=== PATIENT | male | born 1940 | race Caucasian/White ===

== ENCOUNTER → 2016-09-05 | Outpatient (REF) | payer MEDICARE, OTHER ==
[~2016-09-05] MED LIST: AMBI10TA PO; ASPI325T PO; CLOB0.0526 TOP; COLA750C2 PO; CORE3.12 PO; DITR1TAB PO; FLOM5CAP PO; GLUC500T PO; LANTINJ4 SC; LIVA2TAB PO; NITR0.4D6 SL; PROBCAP4 PO; PROTPAK PO; VIAG100T PO; VICO7.5T11 PO; VITA-113 PO; VITA20002 PO; VITA200038 PO; VITA400C97 PO; VITA500C24 PO; [UNRECOGNIZED DRUG - REMARK]
[2016-09-05 19:07] LABS: ALBUMIN 3.3 GM/DL (3.2-5.2); ALBUMIN/GLOBULIN RATIO 0.92 (1.00-1.93); BILIRUBIN,TOTAL 1.3 MG/DL (0.2-1.0); CALCIUM LEVEL 8.3 MG/DL (8.8-10.2); CREATININE FOR GFR 1.33 MG/DL (0.70-1.30); GLOMERULAR FILTRATION RATE 55.8 (>42); POTASSIUM SERUM 4.3 MEQ/L (3.5-5.1); TOTAL PROTEIN 6.9 GM/DL (6.4-8.2)
[2016-09-05 19:28] LABS: MEAN CORPUSCULAR HGB CONC 33.6 g/dl (32.0-36.5); MEAN CORPUSCULAR VOLUME 92.4 fl (80.0-96.0); RED CELL DISTRIBUTION WIDTH 13.2 % (11.5-14.5); WHITE BLOOD COUNT 4.5 K/mm3 (4.0-10.0)
== END ==
LOC: M SFHCADAM 15:38
PROVIDERS: ATTEND Family Medicine
DX: K51.90 Ulcerative colitis, unspecified, without complications (principal); E11.65 Type 2 diabetes mellitus with hyperglycemia; E78.4 Other hyperlipidemia; Z12.5 Encounter for screening for malignant neoplasm of prostate
CPT/HCPCS: 80053; 80061; 83036; 85027; G0103; G0463

== ENCOUNTER → 2017-06-06 | Outpatient (REF) | payer MEDICARE, OTHER ==
[2017-06-06 13:57] LABS: NT-PRO BNP 2120 PG/ML (<450)
== END ==
LOC: M LAB REF 13:03
DX: R05 Cough (principal); R60.9 Edema, unspecified; R06.02 Shortness of breath
CPT/HCPCS: 83880

== ENCOUNTER 2017-08-07 12:38 | Inpatient (IN) | payer MEDICARE, OTHER ==
[2017-08-07 14:30] LABS: INR 1.58; PROTHROMBIN TIME 19.3 SECONDS (12.4-14.5)
[2017-08-07 14:31] LABS: PARTIAL THROMBOPLASTIN TIME 37.7 SECONDS (26.8-37.9)
[2017-08-07 14:34] LABS: BASO % 0.4 % (0.0-1.0); EOS # 0.3 10^3/uL (0.0-0.50); HEMATOCRIT 35.1 % (42.0-52.0); HEMOGLOBIN 12.4 g/dl (13.5-17.5); IMMATURE GRANULOCYTE % 0.2 % (0-3.0); LYMPH # 1.3 10^3/uL (1.5-4.5); LYMPH % 27.7 % (24.0-44.0); MEAN CORPUSCULAR HEMOGLOBIN 31.4 pg (27.0-33.0); MEAN CORPUSCULAR HGB CONC 35.3 g/dl (32.0-36.5); MEAN CORPUSCULAR VOLUME 88.9 fl (80.0-96.0); MONO # 0.4 10^3/uL (0.0-0.8); NEUTROPHILS # 2.5 10^3/uL (1.8-7.7); NEUTROPHILS % 55.7 % (36.0-66.0); PLATELET COUNT, AUTOMATED 101 10^3/uL (150-450); RED BLOOD COUNT 3.95 10^6/uL (4.30-6.10); RED CELL DISTRIBUTION WIDTH 12.7 % (11.5-14.5); WHITE BLOOD COUNT 4.6 10^3/uL (4.0-10.0)
[2017-08-07 14:38] LABS: ANION GAP 6 MEQ/L (8-16); BLOOD UREA NITROGEN 25 MG/DL (7-18); CALCIUM LEVEL 8.8 MG/DL (8.8-10.2); CARBON DIOXIDE LEVEL 27 MEQ/L (21-32); CHLORIDE LEVEL 106 MEQ/L (98-107); CPK CREATINE PHOSPHOKINASE 194 U/L (39-308); CREATININE FOR GFR 1.73 MG/DL (0.70-1.30); GLOMERULAR FILTRATION RATE 41.1 (>42); GLUCOSE, FASTING 202 MG/DL (70-100); POTASSIUM SERUM 3.8 MEQ/L (3.5-5.1); SODIUM LEVEL 139 MEQ/L (136-145); TROPONIN I < 0.02 NG/ML (< 0.10)
[2017-08-07 14:40] LABS: CK-MB VALUE MASS 2.4 NG/ML (<3.6); MB/CK RELATIVE INDEX 1.23 (< OR =4); NT-PRO BNP 1454 PG/ML (<450)
[2017-08-07 15:45] LABS: D-DIMER QUANT < 270.0 ng/ml (<500)
[2017-08-07] MEDS: AZITHROMYCIN INJ 500 MG, VIAL MATE ADAPTER 1 EACH in D5W 250 ML IV (17:15)
[2017-08-07] MEDS: NS 1,000 ML IV ×2 (17:15→19:53)
[2017-08-07] MEDS ORDERED: IPRATROPIUM 0.5MG/ALBUTEROL 2.5MG INH SOL UD 3ML (DUONEB)(J7620) NEB (17:30)
[2017-08-07 18:00] LABS: OSMOLALITY SERUM 299 MOSM/KG (280-301)
[2017-08-07 18:09] LABS: C REACTIVE PROTEIN QUANTITATIV 4.61 MG/DL (0.00-0.30); FERRITIN 163 NG/ML (26-388); IRON (FE) 59 UG/DL (65-175); MAGNESIUM LEVEL 1.9 MG/DL (1.8-2.4); TOTAL IRON BINDING CAPACITY 256 UG/DL (250-450)
[2017-08-07 18:26] LABS: VITAMIN B12 LEVEL > 2000 PG/ML
[2017-08-07 18:27] LABS: FOLATE > 24.0 NG/ML
[2017-08-07 19:04] LABS: ERYTHROCYTE SEDIMENTATION RATE 37 mm/hr (0-20)
[2017-08-07 19:12] LABS: BEDSIDE GLUCOSE 145 MG/DL (83-110)
[2017-08-07] MEDS ORDERED: ONDANSETRON 4MG/2ML VIAL (J2405) IV (19:30)
[2017-08-07] MEDS ORDERED: BISACODYL 5 MG TAB PO (19:30)
[2017-08-07] MEDS: cefTRIAXone SOD 1 GM in D5W MINI-BAG PLUS 50 ML IV (19:53)
[2017-08-07 20:07] LABS: OSMOLALITY URINE 605 MOSM/KG (500-800)
[2017-08-07 20:11] LABS: APPEARANCE, URINE CLEAR (CLEAR); BACTERIA, URINE AUTO NEGATIVE (NEGATIVE); BILIRUBIN, URINE AUTO NEGATIVE (NEGATIVE); BLOOD, URINE BLOOD NEGATIVE (NEGATIVE); COLOR, URINE YELLOW (YELLOW); GLUCOSE, URINE (UA) AUTO NEGATIVE (NEGATIVE); KETONE, URINE AUTO NEGATIVE (NEGATIVE); LEUKOCYTE ESTERASE, URINE AUTO NEGATIVE (NEGATIVE); MUCUS, URINE SMALL (NEGATIVE); NITRITE, URINE AUTO NEGATIVE (NEGATIVE); PROTEIN, URINE AUTO NEGATIVE (NEGATIVE); RBC, URINE AUTO 0 /HPF (0-3); SPECIFIC GRAVITY URINE AUTO 1.018 (1.002-1.035); SQUAMOUS EPITHELIAL CELL UR AU 0 /HPF (0-6); UROBILINOGEN, URINE AUTO 0.2 mg/dL (0.0-2.0); WBC, URINE AUTO 0 /HPF (0-3)
[2017-08-07 20:40] LABS: SODIUM,RANDOM URINE 38 MEQ/L
[2017-08-07] MEDS: IPRATROPIUM 0.5MG/ALBUTEROL 2.5MG INH SOL UD 3ML (DUONEB)(J7620) NEB (20:52)
[2017-08-07] MEDS ORDERED: PITAVASTATIN 2 MG PO (21:00)
[2017-08-07] MEDS: GABAPENTIN 300 MG CAP PO (21:00)
[2017-08-07] MEDS: HumaLOG INSULIN (NovoLOG) PER UNIT SC (21:00)
[2017-08-07] MEDS: CARVedilol 6.25 MG TAB PO (21:00)
[2017-08-07] MEDS: ANEXSIA, NORCO 7.5MG/325MG TABLET(HYDROCODONE/APAP) PO (21:01)
[2017-08-07] MEDS: guaiFENesin ER 600 MG TAB PO (21:02)
[2017-08-07] MEDS: SENOKOT S TAB PO (21:02)
[2017-08-07] MEDS: CETIRIZINE (ZyrTEC) 10 MG TAB PO (21:02)
[2017-08-07 21:18] LABS: BEDSIDE GLUCOSE 164 MG/DL (83-110)
[2017-08-07] MEDS: LEVEMIR (INSULIN DETEMIR) 1 UNITS/0.01ML SC (21:21)
[2017-08-07] MEDS: OMEGA-3 1050MG CAPSULE PO (21:31)
[2017-08-07] MEDS ORDERED: GLUCOSE 4 GM CHEW TABLET PO (22:30)
[2017-08-07] MEDS ORDERED: DEXTROSE 50% 50 ML SYRINGE IV (22:30)
[2017-08-07] MEDS ORDERED: GLUCAGON FOR INJ 1 MG VIAL (J1610) SC (22:30)
[2017-08-07] MEDS: NITROGLYCERIN 2% OINT 1 GM *U/D* PKT TOP (23:20)
[2017-08-07] MEDS: amLODIPine 5 MG TAB PO (23:24)
[2017-08-07] MEDS: zolPIDEM TARTRATE 5 MG TAB PO (23:34)
[2017-08-08] MEDS: IPRATROPIUM 0.5MG/ALBUTEROL 2.5MG INH SOL UD 3ML (DUONEB)(J7620) NEB ×4 (01:42→20:35)
[2017-08-08 05:59] LABS: BASO % 0.6 % (0.0-1.0); EOS # 0.3 10^3/uL (0.0-0.50); EOS % 6.2 % (0.0-3.0); IMMATURE GRANULOCYTE % 0.6 % (0-3.0); LYMPH # 1.1 10^3/uL (1.5-4.5); LYMPH % 21.9 % (24.0-44.0); MEAN CORPUSCULAR HEMOGLOBIN 31.9 pg (27.0-33.0); MEAN CORPUSCULAR HGB CONC 35.5 g/dl (32.0-36.5); MEAN CORPUSCULAR VOLUME 89.9 fl (80.0-96.0); MONO # 0.4 10^3/uL (0.0-0.8); MONO % 8.5 % (0.0-5.0); NEUTROPHILS # 3.2 10^3/uL (1.8-7.7); NEUTROPHILS % 62.2 % (36.0-66.0); RED BLOOD COUNT 3.45 10^6/uL (4.30-6.10); RED CELL DISTRIBUTION WIDTH 12.7 % (11.5-14.5); WHITE BLOOD COUNT 5.2 10^3/uL (4.0-10.0)
[2017-08-08] MEDS: NITROGLYCERIN 2% OINT 1 GM *U/D* PKT TOP ×3 (06:00→22:00)
[2017-08-08 06:14] LABS: PROTHROMBIN TIME 18.5 SECONDS (12.4-14.5)
[2017-08-08 06:19] LABS: ANION GAP 4 MEQ/L (8-16); BLOOD UREA NITROGEN 21 MG/DL (7-18); CALCIUM LEVEL 8.1 MG/DL (8.8-10.2); CARBON DIOXIDE LEVEL 29 MEQ/L (21-32); CHLORIDE LEVEL 110 MEQ/L (98-107); CREATININE FOR GFR 1.45 MG/DL (0.70-1.30); GLOMERULAR FILTRATION RATE 50.4 (>42); GLUCOSE, FASTING 60 MG/DL (70-100); POTASSIUM SERUM 3.8 MEQ/L (3.5-5.1); SODIUM LEVEL 143 MEQ/L (136-145)
[2017-08-08 06:38] LABS: IMMATURE PLATELET FRACTION % 1.2 % (0.0-10.9); PLATELET COUNT, AUTOMATED 81 10^3/uL (150-450); PLATELET F 81
[2017-08-08] MEDS: HumaLOG INSULIN (NovoLOG) PER UNIT SC ×4 (07:30→21:00)
[2017-08-08 07:41] LABS: BEDSIDE GLUCOSE 101 MG/DL (83-110)
[2017-08-08] MEDS: LACTOBACILLUS ACIDOPHILUS CAP (BACID) PO (09:36)
[2017-08-08] MEDS: oxyBUTYnin *DITROPAN XL* 5 MG TABCR PO (09:37)
[2017-08-08] MEDS: PANTOPRAZOLE 40MG TAB (PROTONIX) PO (09:37)
[2017-08-08] MEDS: OMEGA-3 1050MG CAPSULE PO ×2 (09:37→21:20)
[2017-08-08] MEDS: FINASTERIDE 5 MG TAB PO (09:37)
[2017-08-08] MEDS: TAMSULOSIN 0.4 MG CAP PO (09:37)
[2017-08-08] MEDS: FOLIC ACID 1 MG TAB PO (09:37)
[2017-08-08] MEDS: CARVedilol 6.25 MG TAB PO ×2 (09:37→21:20)
[2017-08-08] MEDS: guaiFENesin ER 600 MG TAB PO ×2 (09:37→21:19)
[2017-08-08] MEDS: SENOKOT S TAB PO ×2 (09:37→21:19)
[2017-08-08] MEDS: OCUVITE 1 TAB PO (09:38)
[2017-08-08] MEDS: FERROUS SULFATE 325MG TAB PO (09:39)
[2017-08-08] MEDS: ANEXSIA, NORCO 7.5MG/325MG TABLET(HYDROCODONE/APAP) PO ×2 (09:39→15:49)
[2017-08-08] MEDS: NS 1,000 ML IV (09:39)
[2017-08-08 14:15] LABS: ESTIMATED AVERAGE GLUCOSE 186 MG/DL (60-110); HEMOGLOBIN A1c 8.1 %
[2017-08-08] MEDS ORDERED: SLF 3 ML SYR IV (16:15)
[2017-08-08 16:40] LABS: BEDSIDE GLUCOSE 193 MG/DL (83-110)
[2017-08-08 18:45] LABS: BEDSIDE GLUCOSE 197 MG/DL (83-110)
[2017-08-08 20:29] LABS: BEDSIDE GLUCOSE 181 MG/DL (83-110)
[2017-08-08] MEDS: GABAPENTIN 300 MG CAP PO (21:20)
[2017-08-08] MEDS: CETIRIZINE (ZyrTEC) 10 MG TAB PO (21:20)
[2017-08-08] MEDS: zolPIDEM TARTRATE 5 MG TAB PO (21:20)
[2017-08-08] MEDS: SLF 3 ML SYR IV (21:21)
[2017-08-08] MEDS: LEVEMIR (INSULIN DETEMIR) 1 UNITS/0.01ML SC (21:22)
[2017-08-09] MEDS: IPRATROPIUM 0.5MG/ALBUTEROL 2.5MG INH SOL UD 3ML (DUONEB)(J7620) NEB ×4 (01:39→20:00)
[2017-08-09] MEDS: ANEXSIA, NORCO 7.5MG/325MG TABLET(HYDROCODONE/APAP) PO ×3 (03:04→18:24)
[2017-08-09 05:27] LABS: BASO % 0.7 % (0.0-1.0); EOS # 0.3 10^3/uL (0.0-0.50); EOS % 7.3 % (0.0-3.0); HEMATOCRIT 31.8 % (42.0-52.0); IMMATURE GRANULOCYTE % 0.4 % (0-3.0); LYMPH # 1.1 10^3/uL (1.5-4.5); LYMPH % 23.8 % (24.0-44.0); MEAN CORPUSCULAR HGB CONC 34.6 g/dl (32.0-36.5); MEAN CORPUSCULAR VOLUME 89.6 fl (80.0-96.0); MONO # 0.3 10^3/uL (0.0-0.8); MONO % 7.3 % (0.0-5.0); NEUTROPHILS # 2.7 10^3/uL (1.8-7.7); NEUTROPHILS % 60.5 % (36.0-66.0); RED BLOOD COUNT 3.55 10^6/uL (4.30-6.10); RED CELL DISTRIBUTION WIDTH 12.6 % (11.5-14.5); WHITE BLOOD COUNT 4.5 10^3/uL (4.0-10.0)
[2017-08-09 05:28] LABS: PLATELET COUNT, AUTOMATED 85 10^3/uL (150-450)
[2017-08-09 05:33] LABS: INR 1.15; PROTHROMBIN TIME 14.9 SECONDS (12.4-14.5)
[2017-08-09 05:44] LABS: ANION GAP 5 MEQ/L (8-16); BLOOD UREA NITROGEN 17 MG/DL (7-18); CALCIUM LEVEL 8.4 MG/DL (8.8-10.2); CARBON DIOXIDE LEVEL 27 MEQ/L (21-32); CHLORIDE LEVEL 108 MEQ/L (98-107); CHOLESTEROL LEVEL 118 MG/DL (<200); CHOLESTEROL RISK RATIO 4.214 (<5); GLOMERULAR FILTRATION RATE 57.1 (>42); GLUCOSE, FASTING 148 MG/DL (70-100); HDL CHOLESTEROL 28 MG/DL (>40); NON-HDL-C 90 MG/DL; POTASSIUM SERUM 4.4 MEQ/L (3.5-5.1); SODIUM LEVEL 140 MEQ/L (136-145); TRIGLYCERIDES LEVEL 115 MG/DL (<150)
[2017-08-09] MEDS: NITROGLYCERIN 2% OINT 1 GM *U/D* PKT TOP ×3 (06:00→22:00)
[2017-08-09] MEDS: SLF 3 ML SYR IV ×3 (06:00→21:01)
[2017-08-09 08:22] LABS: BEDSIDE GLUCOSE 115 MG/DL (83-110)
[2017-08-09] MEDS: HumaLOG INSULIN (NovoLOG) PER UNIT SC ×4 (08:30→21:00)
[2017-08-09] MEDS: PANTOPRAZOLE 40MG TAB (PROTONIX) PO (08:31)
[2017-08-09] MEDS: TAMSULOSIN 0.4 MG CAP PO (08:31)
[2017-08-09] MEDS: oxyBUTYnin *DITROPAN XL* 5 MG TABCR PO (08:31)
[2017-08-09] MEDS: FERROUS SULFATE 325MG TAB PO (08:31)
[2017-08-09] MEDS: OMEGA-3 1050MG CAPSULE PO ×2 (08:31→21:00)
[2017-08-09] MEDS: CARVedilol 6.25 MG TAB PO ×2 (08:34→21:00)
[2017-08-09] MEDS: guaiFENesin ER 600 MG TAB PO ×2 (08:35→21:00)
[2017-08-09] MEDS: FOLIC ACID 1 MG TAB PO (08:36)
[2017-08-09] MEDS: OCUVITE 1 TAB PO (08:36)
[2017-08-09] MEDS: FINASTERIDE 5 MG TAB PO (08:36)
[2017-08-09] MEDS: LACTOBACILLUS ACIDOPHILUS CAP (BACID) PO (08:36)
[2017-08-09] MEDS: cefTRIAXone SOD 1 GM in D5W MINI-BAG PLUS 50 ML IV ×2 (11:00→14:53)
[2017-08-09 12:08] LABS: BEDSIDE GLUCOSE 136 MG/DL (83-110)
[2017-08-09] MEDS: SENOKOT S TAB PO ×2 (12:36→21:00)
[2017-08-09 16:52] LABS: BEDSIDE GLUCOSE 79 MG/DL (83-110)
[2017-08-09 20:25] LABS: BEDSIDE GLUCOSE 171 MG/DL (83-110)
[2017-08-09] MEDS: CETIRIZINE (ZyrTEC) 10 MG TAB PO (20:59)
[2017-08-09] MEDS: LEVEMIR (INSULIN DETEMIR) 1 UNITS/0.01ML SC (20:59)
[2017-08-09] MEDS: GABAPENTIN 300 MG CAP PO (21:00)
[2017-08-09] MEDS: zolPIDEM TARTRATE 5 MG TAB PO (23:12)
[2017-08-10] MEDS: ANEXSIA, NORCO 7.5MG/325MG TABLET(HYDROCODONE/APAP) PO (04:10)
[2017-08-10] MEDS: IPRATROPIUM 0.5MG/ALBUTEROL 2.5MG INH SOL UD 3ML (DUONEB)(J7620) NEB ×2 (05:08→08:23)
[2017-08-10] MEDS: NITROGLYCERIN 2% OINT 1 GM *U/D* PKT TOP (05:56)
[2017-08-10] MEDS: SLF 3 ML SYR IV ×2 (05:57→12:14)
[2017-08-10] MEDS: HumaLOG INSULIN (NovoLOG) PER UNIT SC ×2 (07:27→12:00)
[2017-08-10] MEDS ORDERED: DEXTROMETHORPHAN 60MG/10ML SUSP 90ML BTL(DELSYM) PO (08:30)
[2017-08-10 08:31] LABS: BASO % 0.6 % (0.0-1.0); EOS # 0.4 10^3/uL (0.0-0.50); EOS % 8.3 % (0.0-3.0); HEMATOCRIT 32.4 % (42.0-52.0); HEMOGLOBIN 11.1 g/dl (13.5-17.5); IMMATURE GRANULOCYTE % 0.6 % (0-3.0); LYMPH # 1.3 10^3/uL (1.5-4.5); LYMPH % 25.9 % (24.0-44.0); MEAN CORPUSCULAR HEMOGLOBIN 31.1 pg (27.0-33.0); MEAN CORPUSCULAR HGB CONC 34.3 g/dl (32.0-36.5); MEAN CORPUSCULAR VOLUME 90.8 fl (80.0-96.0); MONO # 0.4 10^3/uL (0.0-0.8); MONO % 7.5 % (0.0-5.0); NEUTROPHILS # 2.8 10^3/uL (1.8-7.7); NEUTROPHILS % 57.1 % (36.0-66.0); PLATELET COUNT, AUTOMATED 111 10^3/uL (150-450); RED BLOOD COUNT 3.57 10^6/uL (4.30-6.10); RED CELL DISTRIBUTION WIDTH 12.5 % (11.5-14.5); WHITE BLOOD COUNT 4.8 10^3/uL (4.0-10.0)
[2017-08-10 08:40] LABS: INR 1.17; PROTHROMBIN TIME 15.1 SECONDS (12.4-14.5)
[2017-08-10] MEDS: guaiFENesin ER 600 MG TAB PO (08:44)
[2017-08-10] MEDS: SENOKOT S TAB PO (08:44)
[2017-08-10] MEDS: PANTOPRAZOLE 40MG TAB (PROTONIX) PO (08:44)
[2017-08-10] MEDS: FINASTERIDE 5 MG TAB PO (08:44)
[2017-08-10] MEDS: FOLIC ACID 1 MG TAB PO (08:44)
[2017-08-10] MEDS: OCUVITE 1 TAB PO (08:44)
[2017-08-10] MEDS: OMEGA-3 1050MG CAPSULE PO (08:44)
[2017-08-10] MEDS: FERROUS SULFATE 325MG TAB PO (08:44)
[2017-08-10] MEDS: LACTOBACILLUS ACIDOPHILUS CAP (BACID) PO (08:45)
[2017-08-10] MEDS: CARVedilol 6.25 MG TAB PO (08:45)
[2017-08-10] MEDS: oxyBUTYnin *DITROPAN XL* 5 MG TABCR PO (08:48)
[2017-08-10] MEDS: TAMSULOSIN 0.4 MG CAP PO (08:48)
[2017-08-10 08:56] LABS: ANION GAP 4 MEQ/L (8-16); BLOOD UREA NITROGEN 15 MG/DL (7-18); CALCIUM LEVEL 8.3 MG/DL (8.8-10.2); CARBON DIOXIDE LEVEL 30 MEQ/L (21-32); CHLORIDE LEVEL 106 MEQ/L (98-107); CREATININE FOR GFR 1.34 MG/DL (0.70-1.30); GLOMERULAR FILTRATION RATE 55.2 (>42); GLUCOSE, FASTING 92 MG/DL (70-100); POTASSIUM SERUM 4.4 MEQ/L (3.5-5.1); SODIUM LEVEL 140 MEQ/L (136-145)
[2017-08-10] MEDS: cefTRIAXone SOD 2 GM in D5W MINI-BAG PLUS 50 ML IV (11:22)
[2017-08-11 10:34] LABS: BEDSIDE GLUCOSE 68 MG/DL (83-110)
== END 2017-08-10 13:10 | disposition home or self-care (01) | DRG 178 ==
LOC: M PCU 20:20 → M MSPAV 08-09 13:01 → M ED 12:38 → M ED INP 20:20 → M PCU 08-09 13:04 → M MSPAV 08-09 13:52
DX: J15.5 Pneumonia due to Escherichia coli (principal); I50.22 Chronic systolic (congestive) heart failure; N17.9 Acute kidney failure, unspecified; R04.2 Hemoptysis; E11.42 Type 2 diabetes mellitus with diabetic polyneuropathy; I48.2 Chronic atrial fibrillation; N40.0 Benign prostatic hyperplasia without lower urinary tract symptoms; K21.9 Gastro-esophageal reflux disease without esophagitis; I25.10 Atherosclerotic heart disease of native coronary artery without angina pectoris; K76.0 Fatty (change of) liver, not elsewhere classified; D50.9 Iron deficiency anemia, unspecified; I16.0 Hypertensive urgency; I27.20 Pulmonary hypertension, unspecified; E66.9 Obesity, unspecified; I11.0 Hypertensive heart disease with heart failure; E55.9 Vitamin D deficiency, unspecified; E29.1 Testicular hypofunction; Z95.1 Presence of aortocoronary bypass graft; Z79.82 Long term (current) use of aspirin; Z79.4 Long term (current) use of insulin; Z79.01 Long term (current) use of anticoagulants; Z79.899 Other long term (current) drug therapy; Z88.5 Allergy status to narcotic agent; Z88.8 Allergy status to other drugs, medicaments and biological substances; Z68.30 Body mass index [BMI] 30.0-30.9, adult

== ENCOUNTER → 2017-09-26 | Outpatient (REF) | payer MEDICARE, OTHER ==
[2017-09-26 13:05] LABS: ANION GAP 7 MEQ/L (8-16); BLOOD UREA NITROGEN 24 MG/DL (7-18); CALCIUM LEVEL 8.9 MG/DL (8.8-10.2); CARBON DIOXIDE LEVEL 30 MEQ/L (21-32); CHLORIDE LEVEL 106 MEQ/L (98-107); CREATININE FOR GFR 1.89 MG/DL (0.70-1.30); GLOMERULAR FILTRATION RATE 37.1 (>42); GLUCOSE, FASTING 115 MG/DL (70-100); POTASSIUM SERUM 4.9 MEQ/L (3.5-5.1); RHEUMATOID FACTOR QUANT < 10.0 IU/ML (<15.0); SODIUM LEVEL 143 MEQ/L (136-145)
[2017-09-26 13:10] LABS: ALBUMIN 3.5 GM/DL (3.2-5.2); ALBUMIN/GLOBULIN RATIO 0.92 (1.00-1.93); ALKALINE PHOSPHATASE 75 U/L (45-117); ALT/SGPT 33 U/L (12-78); ANION GAP 8 MEQ/L (8-16); AST/SGOT 21 U/L (7-37); BILIRUBIN,TOTAL 0.8 MG/DL (0.2-1.0); BLOOD UREA NITROGEN 25 MG/DL (7-18); CALCIUM LEVEL 8.9 MG/DL (8.8-10.2); CARBON DIOXIDE LEVEL 30 MEQ/L (21-32); CHLORIDE LEVEL 106 MEQ/L (98-107); CREATININE FOR GFR 1.89 MG/DL (0.70-1.30); GLOMERULAR FILTRATION RATE 37.1 (>42); GLUCOSE, FASTING 114 MG/DL (70-100); POTASSIUM SERUM 4.8 MEQ/L (3.5-5.1); SODIUM LEVEL 144 MEQ/L (136-145); TOTAL PROTEIN 7.3 GM/DL (6.4-8.2)
[2017-09-26 13:15] LABS: ERYTHROCYTE SEDIMENTATION RATE 11 mm/hr (0-20)
[2017-09-28 00:12] LABS: ANA (HEP2) Negative (.)
== END ==
LOC: M SFHCADAM 08:55
DX: E11.65 Type 2 diabetes mellitus with hyperglycemia (principal); M15.9 Polyosteoarthritis, unspecified
CPT/HCPCS: 80053

== ENCOUNTER → 2017-10-02 | Outpatient (CLI) | payer MEDICARE, OTHER | LOC: M RAD 10:10 | DX: D16.9 Benign neoplasm of bone and articular cartilage, unspecified (principal) | CPT/HCPCS: 72195 ==

== ENCOUNTER → 2017-10-04 | Outpatient (CLI) | payer MEDICARE, OTHER | LOC: M WUC 18:42 | DX: J06.9 Acute upper respiratory infection, unspecified (principal); R05 Cough | CPT/HCPCS: 71046 ==

== ENCOUNTER → 2017-11-27 | Outpatient (REF) | payer MEDICARE, OTHER | LOC: M SFHCADAM 16:58 | DX: K51.90 Ulcerative colitis, unspecified, without complications (principal); E11.40 Type 2 diabetes mellitus with diabetic neuropathy, unspecified; E78.4 Other hyperlipidemia; Z12.5 Encounter for screening for malignant neoplasm of prostate; Z53.8 Procedure and treatment not carried out for other reasons ==

== ENCOUNTER → 2018-01-16 | Outpatient (CLI) | payer MEDICARE, OTHER | LOC: M WUC 14:45 | DX: R05 Cough (principal) | CPT/HCPCS: 71046 ==

== ENCOUNTER → 2018-01-23 | Outpatient (REF) | payer MEDICARE, OTHER | LOC: M SFHCADAM 09:50 | DX: J47.1 Bronchiectasis with (acute) exacerbation (principal) | CPT/HCPCS: 87205 ==

== ENCOUNTER → 2018-08-16 | Outpatient (REF) | payer MEDICARE, OTHER ==
[~2018-08-16] MED LIST changes: +ASPI-1 PO; -ASPI325T PO; +ASPI81TA26 PO; +CARV6.25 PO; +CETI10TA PO; +COUM1TAB19 PO; +COUM2TAB22 PO; +FINA5TAB2 PO; +FLOM0.4C39 PO; -FLOM5CAP PO; +FOLI1TAB11 PO; +GABA-843 PO; +IRON65TA PO; +KEFL500C17 PO; +LASI40TA9 PO; +LOVA1CAP17 PO; +MULT1TAB9 PO; +PANT40TA3 PO; -VITA-113 PO; +VITA-113 SL; +VITA500030 PO; +WARF4TAB52 PO
[2018-08-16 09:46] LABS: HEMATOCRIT 40.1 % (42.0-52.0); HEMOGLOBIN 13.7 g/dl (13.5-17.5); MEAN CORPUSCULAR HEMOGLOBIN 30.4 pg (27.0-33.0); MEAN CORPUSCULAR HGB CONC 34.2 g/dl (32.0-36.5); MEAN CORPUSCULAR VOLUME 89.1 fl (80.0-96.0); PLATELET COUNT, AUTOMATED 100 10^3/uL (150-450); WHITE BLOOD COUNT 6.9 10^3/uL (4.0-10.0)
[2018-08-16 10:10] LABS: ALBUMIN 3.9 GM/DL (3.2-5.2); BILIRUBIN,TOTAL 1.2 MG/DL (0.2-1.0); CALCIUM LEVEL 8.2 MG/DL (8.8-10.2); CHOLESTEROL RISK RATIO 2.704 (<5); CREATININE FOR GFR 1.9 MG/DL (0.70-1.30); FREE T4 1.27 NG/DL (0.76-1.46); GLOMERULAR FILTRATION RATE 36.8 (>42); THYROID STIMULATING HORMONE 2.98 uIU/ML (0.358-3.740); TOTAL PROTEIN 7.1 GM/DL (6.4-8.2)
== END ==
LOC: M SFHCADAM 09:33
PROVIDERS: ATTEND Internal Medicine Cardiovascular Disease
DX: I48.91 Unspecified atrial fibrillation (principal); R06.02 Shortness of breath; I10 Essential (primary) hypertension

== ENCOUNTER → 2018-08-16 | Outpatient (REF) | payer MEDICARE, OTHER ==
[2018-08-16 09:49] LABS: ALBUMIN 3.5 GM/DL (3.2-5.2); BILIRUBIN,TOTAL 1.2 MG/DL (0.2-1.0); CALCIUM LEVEL 8.3 MG/DL (8.8-10.2); CHOLESTEROL RISK RATIO 2.642 (<5); CREATININE FOR GFR 1.84 MG/DL (0.70-1.30); GLOMERULAR FILTRATION RATE 38.2 (>42); POTASSIUM SERUM 3.9 MEQ/L (3.5-5.1); TOTAL PROTEIN 7.3 GM/DL (6.4-8.2)
[2018-08-16 09:54] LABS: HEMATOCRIT 40.9 % (42.0-52.0); HEMOGLOBIN 14.1 g/dl (13.5-17.5); MEAN CORPUSCULAR HEMOGLOBIN 31.3 pg (27.0-33.0); MEAN CORPUSCULAR HGB CONC 34.5 g/dl (32.0-36.5); MEAN CORPUSCULAR VOLUME 90.7 fl (80.0-96.0); RED BLOOD COUNT 4.51 10^6/uL (4.30-6.10); WHITE BLOOD COUNT 6.8 10^3/uL (4.0-10.0)
[2018-08-16 09:57] LABS: PLATELET COUNT, AUTOMATED 94 10^3/uL (150-450)
[2018-08-16 13:51] LABS: HEMOGLOBIN A1c 7.9 %
[2018-08-16 21:18] LABS: MALB URINE SIEMENS 8.6 MG/L
== END ==
LOC: M SFHCADAM 08:04
PROVIDERS: ATTEND Family Medicine
DX: K51.90 Ulcerative colitis, unspecified, without complications (principal); E11.40 Type 2 diabetes mellitus with diabetic neuropathy, unspecified; E78.49 Other hyperlipidemia; Z12.5 Encounter for screening for malignant neoplasm of prostate; I48.91 Unspecified atrial fibrillation; R06.02 Shortness of breath; I10 Essential (primary) hypertension
CPT/HCPCS: 80053; 80061; 82043; 83036; 83880; 84439; 84443; 85027; 85049; 85055; G0103

== ENCOUNTER → 2019-01-20 | Outpatient (REF) | payer MEDICARE, OTHER ==
[~2019-01-20] MED LIST changes: -VICO7.5T11 PO; +VICO7.5T12 PO
[2019-01-20 13:04] LABS: CALCIUM LEVEL 9.7 MG/DL (8.8-10.2); CREATININE FOR GFR 2.1 MG/DL (0.70-1.30); GLOMERULAR FILTRATION RATE 32.8 (>42); POTASSIUM SERUM 4.6 MEQ/L (3.5-5.1)
[2019-01-20 14:24] LABS: HEMOGLOBIN A1c 6.3 %
== END ==
LOC: M SFHCADAM 10:37
PROVIDERS: ATTEND Family Medicine
DX: E11.40 Type 2 diabetes mellitus with diabetic neuropathy, unspecified (principal)

== ENCOUNTER → 2019-02-10 | Outpatient (CLI) | payer MEDICARE, OTHER ==
--- NOTE | 2019-02-10 16:13 | REP ---
Urinary tract sonogram: History: Hypertensive heart disease. Comparison: Comparison study August 07, 2017. Findings: Scanning at the level of the urinary bladder shows no abnormality. Renal cortical echogenicity pattern is normal bilaterally and contours are smooth. There is no evidence of hydronephrosis, cyst, mass, or calculus in either kidney. The right kidney measures 10.1 x 5.4 x 5.2 cm. Left renal dimensions are 10.4 x 6.3 x 5.6 cm. Impression: Unremarkable urinary tract sonography. There is no evidence of hydronephrosis. Electronically Signed by Ernesto Trammell MD 02/10/2019 04:04 P
== END ==
LOC: M RAD 15:00
PROVIDERS: ATTEND Family Medicine
DX: I11.9 Hypertensive heart disease without heart failure (principal)

== ENCOUNTER 2019-10-11 20:09 | Emergency (ER) | payer MEDICARE, OTHER ==
[~2019-10-11] VITALS: Ht 182.9 cm; Wt 97.7 kg
[2019-10-11] MEDS ORDERED: LIDOCAINE 2% 5ML JELLY UROJET TOP ONE (20:45)
[2019-10-11] MEDS ORDERED: MORPHINE 4 MG/ML 1ML VIAL/SYRINGE (J2270) IV ONE (21:15)
[2019-10-11] MEDS ORDERED: NS 500 ML IV ONE (21:15)
[2019-10-11 21:24] LABS: BASO # 0.1 10^3/uL (0.0-0.2); BASO % 0.9 % (0.0-1.0); EOS # 0.3 10^3/uL (0.0-0.5); EOS % 3.6 % (0.0-3.0); HEMATOCRIT 39.3 % (42.0-52.0); LYMPH # 1.2 10^3/uL (1.5-5.0); LYMPH % 17.7 % (24.0-44.0); MEAN CORPUSCULAR HEMOGLOBIN 30.4 pg (27.0-33.0); MEAN CORPUSCULAR HGB CONC 33.1 g/dl (32.0-36.5); MONO # 0.5 10^3/uL (0.0-0.8); MONO % 6.9 % (0.0-5.0); NEUTROPHILS # 4.8 10^3/uL (1.5-8.5); NEUTROPHILS % 70.2 % (36.0-66.0); RED BLOOD COUNT 4.27 10^6/uL (4.30-6.10); WHITE BLOOD COUNT 6.9 10^3/uL (4.0-10.0)
[2019-10-11 21:26] LABS: PLATELET COUNT, AUTOMATED 96 10^3/uL (150-450)
[2019-10-11] MEDS: GASTROGRAFIN SOLUTION 30ML PO SCH ×2 (21:31→22:00)
[2019-10-11 22:00] LABS: ALBUMIN 3.9 GM/DL (3.2-5.2); BILIRUBIN,DIRECT 0.2 MG/DL (0.0-0.2); BILIRUBIN,TOTAL 0.9 MG/DL (0.2-1.0); CALCIUM LEVEL 9.1 MG/DL (8.8-10.2); CREATININE FOR GFR 2.67 MG/DL (0.70-1.30); GLOMERULAR FILTRATION RATE 24.8 (>42); TOTAL PROTEIN 7.3 GM/DL (6.4-8.2)
--- NOTE | 2019-10-11 23:13 | REPVR ---
PROCEDURE INFORMATION: Exam: CT Abdomen And Pelvis Without Contrast Exam date and time: 10/11/2019 10:50 PM Age: 79 years old Clinical indication: Abdominal pain; Generalized; Additional info: Distension/pain TECHNIQUE: Imaging protocol: Computed tomography of the abdomen and pelvis without contrast. Radiation optimization: All CT scans at this facility use at least one of these dose optimization techniques: automated exposure control; mA and/or kV adjustment per patient size (includes targeted exams where dose is matched to clinical indication); or iterative reconstruction. Other contrast: Oral, Gastrographin, 10cc gastro to 290 water x 2; COMPARISON: MRI PELVIS WITHOUT CONTRAST 2017-10-02 11:00 FINDINGS: Limitations: Limited by patient's body habitus. Tubes, catheters and devices: A balloon bladder catheter is present. Lungs: Dependent subsegmental pulmonary atelectasis. Heart: Moderate cardiac enlargement. Mediastinal space: Mild gastro-esophageal thickening. Question distal esophagitis. Liver: Normal. No mass. Gallbladder and bile ducts: Cholelithiasis. Pancreas: Normal. No ductal dilation. Spleen: The spleen demonstrates punctate calcifications, consistent with remote granulomatous organism exposure. Adrenals: Normal. No mass. Kidneys and ureters: 5 mm right vesicoureteral junction obstructing calculus causes mild to moderate right renal collecting system dilatation/hydronephrosis. Punctate non-obstructing right renal calculus. Stomach and bowel: Ileocolic right lower quadrant bowel anastomosis. Distal colonic lipomatosis. Small bowel adhesed to the anterior abdominal wall. Gastric wall lipomatosis. Appendix: No evidence of appendicitis. Intraperitoneal space: Unremarkable. No free air. No significant fluid collection. Vasculature: Unremarkable. No abdominal aortic aneurysm. Lymph nodes: Unremarkable. No enlarged lymph nodes. Bladder: Unremarkable as visualized. Reproductive: 7 cm, enlarged prostate gland, correlate with PSA. Bones/joints: Pedunculated calcific lesion projecting laterally from the left iliac is unchanged measuring up to 5.9 cm. L4-L5 right paracentral to foraminal disc protrusion and osteophytes causes severe right subarticular and foraminal stenosis. Soft tissues: Bilateral small fat protruding inguinal hernias. Midline laparotomy scarring. Other findings: Mild bronchial wall thickening. IMPRESSION: 1. 5 mm right vesicoureteral junction obstructing calculus causes mild to moderate right renal collecting system dilatation/hydronephrosis. 2. Mild gastro-esophageal thickening. Question distal esophagitis. 3. Moderate cardiac enlargement. Cholelithiasis. 4. 7 cm, enlarged prostate gland, correlate with PSA. Electronically signed by: Jm Correa On 10/11/2019 23:12:51 PM
[2019-10-11] MEDS ORDERED: TAMSULOSIN 0.4 MG CAP PO ONE (23:15)
[2019-10-11] MEDS: NS 500 ML IV ONE ×2 (23:23→23:29)
[2019-10-11 23:49] VITALS: BP 147/84
== END 2019-10-12 00:04 | disposition home or self-care (01) ==
LOC: M ED 20:09
DX: N20.1 Calculus of ureter (principal); R10.9 Unspecified abdominal pain; I48.91 Unspecified atrial fibrillation; I10 Essential (primary) hypertension; E11.9 Type 2 diabetes mellitus without complications; I25.10 Atherosclerotic heart disease of native coronary artery without angina pectoris; N40.1 Benign prostatic hyperplasia with lower urinary tract symptoms; K21.9 Gastro-esophageal reflux disease without esophagitis; D69.6 Thrombocytopenia, unspecified; R16.1 Splenomegaly, not elsewhere classified; Z87.891 Personal history of nicotine dependence; Z88.8 Allergy status to other drugs, medicaments and biological substances; Z88.5 Allergy status to narcotic agent; Z79.899 Other long term (current) drug therapy; Z79.4 Long term (current) use of insulin; Z79.82 Long term (current) use of aspirin
CPT/HCPCS: 51702; 74176; 80048; 80076; 81001; 83605; 83690; 85025; 85049; 85055; 96361; 96374; 99284; J2270; Q9963

== ENCOUNTER 2019-10-16 14:11 | Inpatient (IN) | payer MEDICARE, OTHER ==
[~2019-10-16] VITALS: Ht 182.9 cm; Wt 96.5 kg
[2019-10-16 15:47] LABS: BASO % 0.7 % (0.0-1.0); EOS # 0.2 10^3/uL (0.0-0.5); EOS % 3.6 % (0.0-3.0); HEMOGLOBIN 11.2 g/dl (13.5-17.5); LYMPH % 17.2 % (24.0-44.0); MEAN CORPUSCULAR HEMOGLOBIN 31.1 pg (27.0-33.0); MEAN CORPUSCULAR HGB CONC 33.9 g/dl (32.0-36.5); MEAN CORPUSCULAR VOLUME 91.7 fl (80.0-96.0); MONO # 0.4 10^3/uL (0.0-0.8); MONO % 7.3 % (0.0-5.0); NEUTROPHILS # 4.1 10^3/uL (1.5-8.5); NEUTROPHILS % 70.7 % (36.0-66.0); WHITE BLOOD COUNT 5.9 10^3/uL (4.0-10.0)
[2019-10-16 15:51] LABS: PLATELET COUNT, AUTOMATED 88 10^3/uL (150-450)
[2019-10-16 16:17] LABS: ALBUMIN 3.4 GM/DL (3.2-5.2); BILIRUBIN,DIRECT 0.3 MG/DL (0.0-0.2); BILIRUBIN,TOTAL 1.2 MG/DL (0.2-1.0); TOTAL PROTEIN 6.4 GM/DL (6.4-8.2)
[2019-10-16 16:24] LABS: INR 1.28; PROTHROMBIN TIME 15.7 SECONDS (11.8-14.0)
[2019-10-16 16:25] LABS: PARTIAL THROMBOPLASTIN TIME 31.6 SECONDS (25.0-38.4)
[2019-10-16] MEDS ORDERED: FUROSEMIDE 100MG/10ML VIAL (J1940) IV ONE (17:15)
[2019-10-16] MEDS ORDERED: cefTRIAXone SOD 2 GM VIAL (J0696 PER 250MG) IV ONE (17:15)
[2019-10-16] MEDS ORDERED: cefTRIAXone SOD 2 GM in D5W MINI-BAG PLUS 50 ML IV ONE (17:30)
[2019-10-16] MEDS ORDERED: AZIT500T5 PO (18:07)
[2019-10-16] MEDS ORDERED: TRIA0.027 TOP (18:07)
[2019-10-16] MEDS ORDERED: ZOLP5TAB PO (18:07)
[2019-10-16] MEDS ORDERED: CVS5000S2 SL (18:07)
[2019-10-16] MEDS ORDERED: ZINC1TAB2 PO (18:07)
[2019-10-16] MEDS ORDERED: AMIO200T PO (18:07)
[2019-10-16] MEDS ORDERED: VITAD1000T PO (18:07)
[2019-10-16] MEDS ORDERED: SYMB16INH INH (18:07)
[2019-10-16] MEDS ORDERED: HYDR-4514 PO (18:07)
[2019-10-16] MEDS ORDERED: VITMTA PO (18:07)
[2019-10-16] MEDS ORDERED: METF-839 PO (18:07)
[2019-10-16] MEDS ORDERED: VENTAER INH (18:07)
[2019-10-16] MEDS ORDERED: IPRA6SP NARES (18:07)
[2019-10-16] MEDS ORDERED: PROT0.1O TOP (18:07)
[2019-10-16] MEDS ORDERED: ELIQ5TAB PO (18:07)
[2019-10-16] MEDS ORDERED: MAGN400T2 PO (18:07)
[2019-10-16] MEDS ORDERED: LANTINJ4 SC (18:07)
--- NOTE | 2019-10-16 18:17 | HPEPDOC ---
[facility] Medical History & Physical Date of Admission Oct 16, 2019 Date of Service: Oct 16, 2019 Attending Physician: ROBERTO MARRERO MD History and Physical PRIMARY CARE PROVIDER: Dr. Johnson ATTENDING: Roberto Marrero M.D. CHIEF COMPLAINT: Shortness of breath HISTORY OF PRESENT ILLNESS: This is a 71-year-old male with a past medical history of systolic heart failure EF of 35%, history of CAD status post CABG, insulin-dependent diabetes mellitus, atrial fibrillation status post ablation, BPH, who was recently seen in the hospital on was diagnosed with urinary retention with status post Rebolledo placement after which he had a CT of the abdomen and pelvis which noted a kidney stone. Patient had his Rebolledo removed and discharged with outpatient follow-up with urology. In the meantime, patient was told to drink a lot of fluids to help passed a kidney stone. Patient followed up with urology and has planned for cystoscopy and near future. As the patient has increased his fluid intake. He started to develop shortness of breath, lower extremity edema. Patient's notes he has orthopnea and normally sleeps on 2 pillows. He denies any chest pain or palpitations. He does have dyspnea on exertion. Also noticed increased lower extremity edema. Patient's currently resting comfortably in bed. Says he has to urinate frequently. Denies any dysuria, hematuria. No fevers or chills. PAST MEDICAL HISTORY: As per HPI PAST SURGICAL HISTORY: Bilateral cataract surgery, CABG in 2017, cardiac ablation, colonoscopy, prostate biopsy. He SOCIAL HISTORY: Denies tobacco, alcohol or illicit drug use. Lives with . FAMILY HISTORY: Father of heart disease 865 ALLERGIES: Please see below. REVIEW OF SYSTEMS: HEENT: Denies sore throat/headache CARDIOVASCULAR: Denies chest pain/palpitations RESPIRATORY: Denies shortness of breath/cough GASTROINTESTINAL: denies nausea/vomiting GENITOURINARY: Denies dysuria/urinary urgency. MUSCULOSKELETAL: Denies myalgias/arthralgias NEUROLOGICAL: Denies any focal weakness HOME MEDICATIONS: Please see below. PHYSICAL EXAMINATION: Vitals: (see below) General: No acute distress, laying comfortably in bed. HEENT: Moist mucous membranes. Neck: No JVD Cardiac: RRR Pulm: Coarse crackles at the bases b/l. No wheezing, rhonchi Abd: NT/ND + BS Ext: 1-2+ pitting edema BLE. No cyanosis LABORATORY DATA: See below. IMAGING: Chest x-ray and renal ultrasound pending ASSESSMENT/PLAN: 1. Acute decompensated systolic heart failure, prior EF 36%. The patient has been having increased fluid intake and effort to pass his kidney stone. He complains of dyspnea on exertion, orthopnea as well as lower extremity edema. Patient was started on IV Lasix, which we will continue. Echocardiogram has been ordered. EKG and cardiac enzymes ordered as well. Patient denies any chest pain. We'll monitor patient on telemetry. 2. Acute urinary tract infection. Urine/blood cultures. Started on Rocephin. 3. History of nephrolithiasis- renal ultrasound pending 4. Acute kidney injury on chronic disease- baseline creatinine 1.9 2.1. Patient in decompensated heart failure and currently being diuresed. If worsening, will consult nephrology. 5. History of CAD status post CABG continue home medications 6. History of pancytopenia 7. History of BPH 8. Diabetes mellitus. Continue home meds DVT Prophy: Heparin subcutaneous Patient is expected to be hospitalized for greater than 2 midnights for the treatment of the above. Vital Signs Vital Signs Date Time Temp Pulse Resp B/P (MAP) Pulse Ox O2 Delivery O2 Flow Rate FiO2 10/16/19 15:35 10/16/19 14:13 98.7 71 20 96 Room Air Laboratory Data Labs 24H Laboratory Tests 2 10/16/19 14:26: Urine Color YELLOW, Urine Appearance CLOUDYH, Urine pH 5.0, Urine Specific [place] 1.006, Urine Protein 1+H, Urine Glucose (UA) NEGATIVE, Urine Ketones NEGATIVE, Urine Blood 3+H, Urine Nitrite NEGATIVE, Urine Bilirubin NEGATIVE, Urine Urobilinogen 0.2, Urine Leukocyte Esterase 3+H, Urine WBC (Auto) TNTCH, Urine RBC (Auto) 57H, Urine Hyaline Casts (Auto) 0, Urine Bacteria (Auto) 1+H, Urine Squamous Epithelial Cells 0, Urine Mucus (Auto) SMALL, Urine Sperm (Auto) 10/16/19 15:29: Immature Granulocyte % (Auto) 0.5, Neutrophils (%) (Auto) 70.7H, Lymphocytes (%) (Auto) 17.2L, Monocytes (%) (Auto) 7.3H, Eosinophils (%) (Auto) 3.6H, Basophils (%) (Auto) 0.7, Neutrophils # (Auto) 4.1, Lymphocytes # (Auto) 1.0L, Monocytes # (Auto) 0.4, Eosinophils # (Auto) 0.2, Basophils # (Auto) 0.0, Nucleated Red Blood Cells % (auto) 0.0, Immature Platelet Fraction 1.3, Prothrombin Time 15.7H, Prothromb Time International Ratio 1.28, Activated Partial Thromboplast Time 31.6, Total Bilirubin 1.2H, Direct Bilirubin 0.3H, Aspartate Amino Transf (AST/SGOT) 19, Alanine Aminotransferase (ALT/SGPT) 25, Alkaline Phosphatase 63, XS-Noa-Z-Type Natriuretic Peptide 2331H, Total Protein 6.4, Albumin 3.4, Albumin/Globulin Ratio 1.1, Lipase 39L 10/16/19 15:33: POC Glucose (Misc Panel) 103, POC Sodium (Misc Panel) 138, POC Potassium (Misc Panel) 4.3, POC Chloride (Misc Panel) 99, POC Total CO2 (Misc Panel) 26.0, POC Blood Urea Nitrogen (Misc Panel 29H, POC Ionized Calcium (Misc Panel) 4.9, POC Creatinine (Misc Panel) 2.7H, POC Hematocrit (Misc Panel) 34.0L CBC/BMP Laboratory Tests 10/16/19 15:29 Microbiology Microbiology 10/16/19 Urine Culture, Received Pending Home Medications Scheduled Amiodarone HCl (Amiodarone HCl) 200 Mg Tablet, 200 MG PO QPM Apixaban (Eliquis) 5 Mg Tablet, 5 MG PO BID Aspirin (Aspirin EC) 81 Mg Tab, 81 MG PO DAILY Azithromycin (Azithromycin) 500 Mg Tablet, 500 MG PO 3XW MON/WED/FRI Budesonide/Formoterol (Symbicort 160-4.5 Mcg Inhaler) 6 Gm Hfa.aer.ad, 2 PUFF INH BID Carvedilol (Carvedilol) 6.25 Mg Tab, 6.25 MG PO BID Cetirizine HCl (Cetirizine HCl) 10 Mg Tab, 10 MG PO DAILY Cholecalciferol (Vitamin D3) (Vitamin D3) 1,000 Unit Tablet, 2,000 UNITS PO DAILY Cyanocobalamin (Vitamin B-12) (Vitamin B12) 5,000 Mcg Tab.rapdis, 5,000 MCG SL DAILY Furosemide (Lasix) 40 Mg Tab, 40 MG PO DAILY Gabapentin (Gabapentin) 300 Mg Cap, 300 MG PO TID Insulin Glargine,Hum.rec.anlog (Lantus Solostar) 100 Unit/Ml Inj, 70 UNITS SC QHS Insulin Glargine,Hum.rec.anlog (Lantus Solostar) 100 Unit/1 Ml Insuln.pen, 60 UNIT SC QPM Magnesium Oxide (Magnesium Oxide) 400 Mg Tablet, 400 MG PO DAILY Metformin HCl (Metformin HCl) 500 Mg Tablet, 500 MG PO BID Multivitamins (Thera M Plus Tablet) 1 Each Tablet, 1 TAB PO DAILY Tamsulosin HCl (Flomax) 0.4 Mg Cap, 0.4 MG PO QHS Zinc (Zinc) 50 Mg Tablet, 25 MG PO DAILY Scheduled PRN Albuterol Sulfate (Ventolin Hfa) 18 Gm Hfa.aer.ad, 2 PUFFS INH QID PRN for SHORTNESS OF BREATH Hydrocodone/Acetaminophen (Hydrocodone-Acetamin 7.5-325) 1 Each Tablet, 1 TAB PO QID PRN for PAIN Ipratropium [place] (Ipratropium [place]) 15 Ml [place], 2 SPRAY NARES BID PRN for CONGESTION Tacrolimus (Protopic) 100 Gm Oint...g., 1 APLCT TOP BID PRN for RASH APPLY TO GROIN Triamcinolone Acetonide (Triamcinolone Acetonide) 454 Gm Oint...g., 1 APLCT TOP BID PRN for RASH APPLY TO CHEST/BACK Zolpidem Tartrate (Zolpidem Tartrate) 5 Mg Tablet, 5 MG PO QHS PRN for SLEEP Allergies Coded Allergies: oxycodone (Unverified Allergy, Unknown, 10/16/19) atorvastatin (Verified Adverse Reaction, Intermediate, MYALGIAS, 10/16/19) simvastatin (Verified Adverse Reaction, Intermediate, MYALGIAS, 10/16/19) naproxen (Verified Adverse Reaction, Mild, MEMORY LOSS, 10/11/19) A-FIB/CHADSVASC A-FIB History Current/History of A-Fib/PAF?: Yes Current PO Anticoag Therapy: Yes ROBERTO MARRERO MD Oct 16, 2019 18:17
[2019-10-16] MEDS ORDERED: zolPIDEM TARTRATE 5 MG TAB PO PRN (18:30)
[2019-10-16] MEDS ORDERED: IPRATROPIUM 0.06% NASAL SPRAY 15 ML (ATROVENT) PRN (18:30)
--- NOTE | 2019-10-16 18:49 | REPVR ---
PROCEDURE INFORMATION: Exam: US Duplex Lower Extremity Veins, Bilateral Exam date and time: 10/16/2019 6:44 PM Age: 79 years old Clinical indication: Swelling (edema) of limb; Lower extremity, bilateral; Additional info: Swelling, R/O dvt TECHNIQUE: Imaging protocol: Real-time duplex ultrasound of the extremities with 2-D salcido scale, color Doppler flow and spectral waveform analysis with image documentation. Complete exam focused on the bilateral lower extremity veins. COMPARISON: US Duplex, Ext LOWER veins, bilat 08/07/2017 2:34 PM FINDINGS: Right deep veins: Common femoral, femoral, proximal profunda femoral and popliteal veins are patent without thrombus. Normal Doppler waveforms. Normal compressibility and/or augmentation response. Right superficial veins: Saphenofemoral junction is patent without thrombus. Left deep veins: Common femoral, femoral, proximal profunda femoral and popliteal veins are patent without thrombus. Normal Doppler waveforms. Normal compressibility and/or augmentation response. Left superficial veins: Saphenofemoral junction is patent without thrombus. Soft tissues: Unremarkable. IMPRESSION: No evidence of deep vein thrombosis. Electronically signed by: Jay Hi On 10/16/2019 18:49:42 PM
[2019-10-16] MEDS: AMIODARONE 200 MG TAB (PACERONE) PO SCH (19:26)
[2019-10-16] MEDS: SYMBICORT 160/4.5MCG INHALER 6GM INH SCH (21:00)
[2019-10-16 21:07] VITALS: BP 134/70
[2019-10-16] MEDS: TAMSULOSIN 0.4 MG CAP PO SCH (21:33)
[2019-10-16] MEDS: CARVedilol 6.25 MG TAB PO SCH (21:33)
[2019-10-16] MEDS: GABAPENTIN 300 MG CAP PO SCH (21:33)
[2019-10-16] MEDS ORDERED: LEVEMIR (INSULIN DETEMIR) 1 UNITS/0.01ML SC ONE (21:45)
[2019-10-17] VITALS: BP 122/59
[2019-10-17 04:00] VITALS: BP 121/82
[2019-10-17 04:44] LABS: HEMATOCRIT 34.9 % (42.0-52.0); HEMOGLOBIN 11.6 g/dl (13.5-17.5); MEAN CORPUSCULAR HEMOGLOBIN 30.5 pg (27.0-33.0); MEAN CORPUSCULAR HGB CONC 33.2 g/dl (32.0-36.5); MEAN CORPUSCULAR VOLUME 91.8 fl (80.0-96.0)
[2019-10-17 04:47] LABS: PLATELET COUNT, AUTOMATED 88 10^3/uL (150-450)
[2019-10-17 05:05] LABS: ALBUMIN 3.4 GM/DL (3.2-5.2); ALT/SGPT 24 U/L (12-78); BILIRUBIN,TOTAL 1.1 MG/DL (0.2-1.0); BLOOD UREA NITROGEN 33 MG/DL (7-18); CALCIUM LEVEL 8.8 MG/DL (8.8-10.2); CARBON DIOXIDE LEVEL 33 MEQ/L (21-32); CHLORIDE LEVEL 103 MEQ/L (98-107); CREATININE FOR GFR 2.59 MG/DL (0.70-1.30); GLOMERULAR FILTRATION RATE 25.7 (>42); GLUCOSE, FASTING 98 MG/DL (70-100); MAGNESIUM LEVEL 1.9 MG/DL (1.8-2.4); POTASSIUM SERUM 3.4 MEQ/L (3.5-5.1); SODIUM LEVEL 140 MEQ/L (136-145); TOTAL PROTEIN 6.6 GM/DL (6.4-8.2); TROPONIN I < 0.02 NG/ML (< 0.10)
[2019-10-17] MEDS: SYMBICORT 160/4.5MCG INHALER 6GM INH SCH ×2 (07:23→20:34)
[2019-10-17 08:00] VITALS: BP 125/67
[2019-10-17] MEDS ORDERED: POTASSIUM CHLORIDE 10 MEQ SR TABLET PO ONE (09:00)
[2019-10-17] MEDS: ASPIRIN 81 MG ENTERIC TAB PO SCH (09:25)
[2019-10-17] MEDS: MAGNESIUM OXIDE 400 MG TAB (MAG-OX) PO SCH (09:25)
[2019-10-17] MEDS: CARVedilol 6.25 MG TAB PO SCH ×2 (09:25→20:51)
[2019-10-17] MEDS: CETIRIZINE (ZyrTEC) 10 MG TAB PO SCH (09:25)
[2019-10-17] MEDS: VITAMIN D 1,000 INTERNATIONAL UNITS TABLET PO SCH (09:25)
[2019-10-17] MEDS: GABAPENTIN 300 MG CAP PO SCH ×3 (09:25→20:51)
[2019-10-17] MEDS: MULTIVITAMINS/MINERALS THERAP 1 TAB PO SCH (09:25)
[2019-10-17] MEDS: FUROSEMIDE 40MG/4ML VIAL (J1940) IV SCH ×2 (09:26→20:52)
[2019-10-17] MEDS: cefTRIAXone SOD 1 GM in D5W MINI-BAG PLUS 50 ML IV SCH (09:26)
--- NOTE | 2019-10-17 10:23 | ECGEPIP ---
[facility] Test Date: 2019-10-17 Pat Name: JAY HOUSE Department: Room: [place] [address] Gender: Male [employer] Butcher: Skylar HAMMOND : 1940 Requested By: ROBERTO MARRERO Order Number: [id number] Reading MD: Carine Alcantara Measurements Intervals [place] Rate: 74 P: AR: 0 QRS: -47 QRSD: 135 T: 109 QT: 439 QTc: 489 Interpretive Statements AFIB NEW PVCS NEW INTRAVENTRICULAR CONDUCTION DELAY Left axis deviation BORDERLINE Left anterior fascicular block NEW PROLONG QTC STTWABN PRWP POSSIBLE OLD SEPTAL PR C/W 05/26 Electronically Signed on 10-17-2019 10:22:53 EDT by Carine Alcantara
--- NOTE | 2019-10-17 10:45 | IPNPDOC ---
Text Note Date of Service The patient was seen on 10/17/19. NOTE General: Dyspnea and LE edema improving. No CP/palpitations. No N/V/Abd pain. PHYSICAL EXAMINATION: Vitals: (see below) General: No acute distress, laying comfortably in bed. HEENT: Moist mucous membranes. Neck: No JVD Cardiac: RRR Pulm: Coarse crackles at the bases b/l; improving. No wheezing, rhonchi Abd: NT/ND + BS Ext: 1 pitting edema BLE. No cyanosis LABORATORY DATA: See below. IMAGING: Chest x-ray and renal ultrasound pending ASSESSMENT/PLAN: 1. Acute decompensated systolic heart failure, prior EF 36%. The patient has been having increased fluid intake and effort to pass his kidney stone. He complains of dyspnea on exertion, orthopnea as well as lower extremity edema. Patient was started on IV Lasix, which we will continue. Echocardiogram has been ordered. EKG and cardiac enzymes ordered as well. Patient denies any chest pain. We'll monitor patient on telemetry. Improving; Cont Lasix 40mg IV BID 2. Acute urinary tract infection. Urine/blood cultures. Started on Rocephin. 3. History of nephrolithiasis- renal ultrasound pending 4. Acute kidney injury on chronic disease- baseline creatinine 1.9 2.1. Patient in decompensated heart failure and currently being diuresed. If worsening, will consult nephrology. 5. History of CAD status post CABG continue home medications 6. History of pancytopenia 7. History of BPH 8. Diabetes mellitus. Continue home meds DVT Prophy: Heparin subcutaneous VS,Fishbone, I+O VS, Fishbone, I+O Laboratory Tests 10/16/19 15:29 10/17/19 04:04 Vital Signs Date Time Temp Pulse Resp B/P (MAP) Pulse Ox O2 Delivery O2 Flow Rate FiO2 10/17/19 09:25 72 121/82 10/17/19 08:00 97.7 18 91 Room Air I&O- Last 24 Hours up to 6 AM 10/17/19 05:59 Intake Total 350 ml Output Total 2750 ml Balance -2400 ml ROBERTO MARRERO MD Oct 17, 2019 10:45
[2019-10-17 12:00] VITALS: BP 108/72
--- NOTE | 2019-10-17 12:01 | REP ---
CHEST, TWO VIEWS: Two views of the chest are performed and compared to prior CT 10/12/2019 and plain films 01/16/2018. There is cardiomegaly of a moderate degree with vascular congestion. There is mild interstitial edema diffusely. No consolidation is seen. Mediastinal silhouette is unchanged. Multiple sternal wires and mediastinal clips are present. There are mild degenerative changes of the spine. IMPRESSION: Moderate cardiomegaly with vascular congestion. Mild diffuse interstitial edema. Electronically Signed by Hayden Liu MD 10/18/2019 11:30 P
--- NOTE | 2019-10-17 14:02 | REP ---
RENAL ULTRASOUND: Real-time sonographic evaluation of kidneys performed. Kidneys are normal in size but somewhat hyperechoic in echotexture suggesting medical renal disease. There is no hydronephrosis bilaterally. Right kidney measures 11.0 x 5.8 x 5.8 cm and left kidney 11.1 x 5.9 x 5.9 cm. No renal mass is seen. The prostate is enlarged 6.7 x 6.4 x 7.4 cm. Urinary bladder is mildly distended and grossly unremarkable. IMPRESSION: No hydronephrosis. Enlarged prostate. Electronically Signed by Hayden Liu MD 10/18/2019 11:32 P
[2019-10-17 16:00] VITALS: BP 131/74
[2019-10-17] MEDS: AMIODARONE 200 MG TAB (PACERONE) PO SCH (17:26)
[2019-10-17 20:00] VITALS: BP 118/56
[2019-10-17] MEDS ORDERED: GLUCOSE 4GM CHEW TABLET PO PRN (20:30)
[2019-10-17] MEDS ORDERED: GLUCAGON INJ 1MG VIAL SC PRN (20:30)
[2019-10-17] MEDS ORDERED: DEXTROSE 50% 50 ML SYRINGE IV PRN (20:30)
[2019-10-17] MEDS: TAMSULOSIN 0.4 MG CAP PO SCH (20:51)
[2019-10-17] MEDS: HumaLOG INSULIN (NovoLOG) PER UNIT SC SCH (20:52)
[2019-10-18] VITALS: BP 125/70
[2019-10-18 04:00] VITALS: BP 102/58
[2019-10-18 05:48] LABS: HEMATOCRIT 36.4 % (42.0-52.0); HEMOGLOBIN 12.1 g/dl (13.5-17.5); MEAN CORPUSCULAR HEMOGLOBIN 30.6 pg (27.0-33.0); MEAN CORPUSCULAR HGB CONC 33.2 g/dl (32.0-36.5); MEAN CORPUSCULAR VOLUME 92.2 fl (80.0-96.0); RED BLOOD COUNT 3.95 10^6/uL (4.30-6.10); WHITE BLOOD COUNT 5.4 10^3/uL (4.0-10.0)
[2019-10-18 05:50] LABS: PLATELET COUNT, AUTOMATED 99 10^3/uL (150-450)
[2019-10-18 06:03] LABS: HEMOGLOBIN A1c 7.8 %
[2019-10-18 06:15] LABS: BLOOD UREA NITROGEN 29 MG/DL (7-18); CALCIUM LEVEL 8.6 MG/DL (8.8-10.2); CARBON DIOXIDE LEVEL 32 MEQ/L (21-32); CHLORIDE LEVEL 102 MEQ/L (98-107); CK-MB VALUE MASS 2.3 NG/ML (<3.6); CPK CREATINE PHOSPHOKINASE 144 U/L (39-308); CREATININE FOR GFR 2.61 MG/DL (0.70-1.30); GLOMERULAR FILTRATION RATE 25.4 (>42); GLUCOSE, FASTING 139 MG/DL (70-100); MAGNESIUM LEVEL 1.8 MG/DL (1.8-2.4); POTASSIUM SERUM 3.7 MEQ/L (3.5-5.1); SODIUM LEVEL 142 MEQ/L (136-145); TROPONIN I < 0.02 NG/ML (< 0.10)
[2019-10-18] MEDS: HumaLOG INSULIN (NovoLOG) PER UNIT SC SCH ×4 (07:30→20:16)
[2019-10-18] MEDS: SYMBICORT 160/4.5MCG INHALER 6GM INH SCH ×2 (07:58→20:37)
[2019-10-18 08:00] VITALS: BP 117/66
[2019-10-18] MEDS: FUROSEMIDE 40MG/4ML VIAL (J1940) IV SCH ×3 (09:10→23:37)
[2019-10-18] MEDS: CETIRIZINE (ZyrTEC) 10 MG TAB PO SCH (09:11)
[2019-10-18] MEDS: ASPIRIN 81 MG ENTERIC TAB PO SCH (09:11)
[2019-10-18] MEDS: GABAPENTIN 300 MG CAP PO SCH ×3 (09:11→20:27)
[2019-10-18] MEDS: CARVedilol 6.25 MG TAB PO SCH ×2 (09:11→20:23)
[2019-10-18] MEDS: MAGNESIUM OXIDE 400 MG TAB (MAG-OX) PO SCH (09:11)
[2019-10-18] MEDS: VITAMIN D 1,000 INTERNATIONAL UNITS TABLET PO SCH (09:11)
[2019-10-18] MEDS: cefTRIAXone SOD 1 GM in D5W MINI-BAG PLUS 50 ML IV SCH (09:11)
[2019-10-18] MEDS: MULTIVITAMINS/MINERALS THERAP 1 TAB PO SCH (09:11)
--- NOTE | 2019-10-18 09:19 | REP ---
CT ABDOMEN/PELVIS WITHOUT CONTRAST: 10/17/2019. COMPARISON: 10/11/2019. TECHNIQUE: Noncontrast images through the abdomen/pelvis with coronal and sagittal reconstructions provided. CLINICAL HISTORY: ABI, reevaluate nephrolithiasis. FINDINGS: CT ABDOMEN: Lung bases show improvement in the subsegmental atelectatic change and appear clear. There is some mild cylindrical bronchiectatic change. Heart size unchanged. No hiatal hernia but slight thickening of the distal esophageal wall again noted. There is no hepatosplenomegaly. Calcifications in the liver and spleen noted from prior old granulomatous disease, stable. Gallbladder collapsed with a few small stones within it with calcification. No biliary dilatation. No ascites. Pancreas shows no ductal dilatation, stone, or mass and no peripancreatic fluid collection or adenopathy. Abdominal aorta shows scattered calcifications without aneurysm. Periaortic, retroperitoneal, or mesenteric pathologic sized lymphadenopathy. Stomach filled with retained food material. Small bowel loops without dilatation. Colon shows scattered stool and gas without signs of colitis or diverticulitis and no mass. The right kidney shows an extrarenal pelvis and mild hydroureter proximally to the level of the iliac vessels normal caliber distally. A 4 mm stone at the right VU junction is now abutting the bladder wall and appears to have passed into the bladder. I do not see nephrolithiasis in the right kidney. The left kidney shows no stone within it. There is very slight hydroureter proximally with a normal course, caliber, and contour of the left ureter is seen and there is no stone in the left ureter. Lung window review shows no perforation or free air. There is no ascites in the abdomen. The bone windows show degenerative disc changes in the lumbar spine, greatest at L2-3 and L4-5 with vacuum phenomenon at those levels and marginal osteophytes at most levels. No compression deformities or destructive lesions. Some facet arthropathy lower lumbar spine. Visualized lower ribs intact. CT PELVIS: The sacrum and SI joints grossly intact. There is an exophytic pedunculated lesion projecting laterally from the left iliac bone and measuring 4.1 x 4.3 x 7.8 cm by my direct measurements, but unchanged from previous study. Remainder of the iliac bone, hips, acetabuli, and ischia unchanged as well. Bladder shows prostate impression and enlargement. There is some retained urine, but not abnormally distended. The 4 mm stone abuts the bladder wall near the right UVJ. This has passed since the previous study and is in the bladder now. A few calcifications in the prostate. No pelvic or inguinal lymphadenopathy. No pelvic free fluid. There is no pelvic mass. No ventral or inguinal hernias in the pelvis. IMPRESSION: 1. Interval passage of the right vesicoureteral junction stone with improvement in the hydroureter and hydronephrosis since the previous study of 10/11/2019. 2. No renal stones on either side, and the left ureter without stone. 3. Enlarged prostate, as before. Cholelithiasis. Aside from the lower right distal ureteral stone, no interval change. Electronically Signed by Des Castellon MD 10/18/2019 09:40 A
--- NOTE | 2019-10-18 11:34 | IPNPDOC ---
Text Note Date of Service The patient was seen on 10/18/19. NOTE General: Dyspnea and LE edema improving, although still has lower some edema on crackles at the bases. No CP/palpitations. No N/V/Abd pain. PHYSICAL EXAMINATION: Vitals: (see below) General: No acute distress, laying comfortably in bed. HEENT: Moist mucous membranes. Neck: No JVD Cardiac: RRR Pulm: Coarse crackles at the bases b/l; improving. No wheezing, rhonchi Abd: NT/ND + BS Ext: 1 pitting edema BLE,improving No cyanosis LABORATORY DATA: See below. IMAGING: Chest x-ray no infiltrate. IMPRESSION: Moderate cardiomegaly with vascular congestion. Mild diffuse interstitial edema. CT abd/pelvis IMPRESSION: 1. Interval passage of the right vesicoureteral junction stone with improvement in the hydroureter and hydronephrosis since the previous study of 10/11/2019. 2. No renal stones on either side, and the left ureter without stone. 3. Enlarged prostate, as before. Cholelithiasis. Aside from the lower right distal ureteral stone, no interval change. ASSESSMENT/PLAN: 1. Acute decompensated systolic heart failure, prior EF 36%. The patient has been having increased fluid intake and effort to pass his kidney stone. He complains of dyspnea on exertion, orthopnea as well as lower extremity edema. Patient was started on IV Lasix, which we will continue. Echocardiogram has been ordered. EKG and cardiac enzymes ordered as well. Patient denies any chest pain. We'll monitor patient on telemetry. Improving; increase Lasix 40mg IV TO EVERY 8 HOURS 2. Acute urinary tract infection. Urine/blood cultures. Started on Rocephin. 3. History of nephrolithiasis- CT abd/pelvis noted; will need outpt urology consult. 4. Acute kidney injury on chronic disease- baseline creatinine 1.9 2.1. Patient in decompensated heart failure and currently being diuresed. If worsening, will consult nephrology. 5. History of CAD status post CABG continue home medications 6. History of pancytopenia 7. History of BPH 8. Diabetes mellitus. Continue home meds DVT Prophy: Heparin subcutaneous Likely for discharge in the next 24-48h hours once urine culture is back and patient is adequately diuresed. VS,Fishbone, I+O VS, Fishbone, I+O Laboratory Tests 10/18/19 05:12 Vital Signs Date Time Temp Pulse Resp B/P (MAP) Pulse Ox O2 Delivery O2 Flow Rate FiO2 10/18/19 09:11 78 117/66 10/18/19 08:00 97.8 18 94 Room Air I&O- Last 24 Hours up to 6 AM 10/18/19 06:00 Intake Total 2160 ml Output Total 2850 ml Balance -690 ml ROBERTO MARRERO MD Oct 18, 2019 11:34
[2019-10-18 12:00] VITALS: BP 120/71
[2019-10-18 16:00] VITALS: BP 130/78
[2019-10-18] MEDS: AMIODARONE 200 MG TAB (PACERONE) PO SCH (18:02)
[2019-10-18 20:00] VITALS: BP 132/68
[2019-10-18] MEDS: LEVEMIR (INSULIN DETEMIR) 1 UNITS/0.01ML SC SCH ×2 (20:25→20:28)
[2019-10-18] MEDS: TAMSULOSIN 0.4 MG CAP PO SCH (20:27)
[2019-10-19 04:00] VITALS: BP_SYST 127; BP_SYST 132; BP_DIAS 68; BP_DIAS 86
[2019-10-19 08:00] VITALS: BP 136/66
[2019-10-19] MEDS: cefTRIAXone SOD 1 GM in D5W MINI-BAG PLUS 50 ML IV SCH (08:12)
[2019-10-19] MEDS: FUROSEMIDE 40MG/4ML VIAL (J1940) IV SCH (08:14)
[2019-10-19] MEDS: ASPIRIN 81 MG ENTERIC TAB PO SCH (08:16)
[2019-10-19] MEDS: HumaLOG INSULIN (NovoLOG) PER UNIT SC SCH ×2 (08:16→13:03)
[2019-10-19] MEDS: GABAPENTIN 300 MG CAP PO SCH (08:17)
[2019-10-19] MEDS: CETIRIZINE (ZyrTEC) 10 MG TAB PO SCH (08:17)
[2019-10-19] MEDS: VITAMIN D 1,000 INTERNATIONAL UNITS TABLET PO SCH (08:17)
[2019-10-19] MEDS: MULTIVITAMINS/MINERALS THERAP 1 TAB PO SCH (08:17)
[2019-10-19] MEDS: MAGNESIUM OXIDE 400 MG TAB (MAG-OX) PO SCH (08:17)
[2019-10-19 08:18] VITALS: BP 136/66
[2019-10-19] MEDS: CARVedilol 6.25 MG TAB PO SCH (08:18)
[2019-10-19] MEDS: SYMBICORT 160/4.5MCG INHALER 6GM INH SCH (08:36)
[2019-10-19] MEDS ORDERED: AMPI500C9 PO (12:37)
--- NOTE | 2019-10-19 17:49 | DS.PDOC ---
Discharge Summary General Date of Admission Oct 16, 2019 at 18:14 Date of Discharge 10/19/19 Discharge Summary PROCEDURES PERFORMED DURING STAY: [None]. ADMITTING DIAGNOSES: Right ureteral stone Acute decompensated systolic heart failure Hypertension History of nephrolithiasis Acute kidney injury on chronic disease CAD status post CABG History of pancytopenia BPH Diabetes mellitus DISCHARGE DIAGNOSES: Right ureteral stone Acute decompensated systolic heart failure Hypertension History of nephrolithiasis Acute kidney injury on chronic disease CAD status post CABG History of pancytopenia BPH Diabetes mellitus COMPLICATIONS/CHIEF COMPLAINT: CHF. HISTORY OF PRESENT ILLNESS: This is a 71-year-old male with a past medical history of systolic heart failure EF of 35%, history of CAD status post CABG, insulin-dependent diabetes mellitus, atrial fibrillation status post ablation, BPH, who was recently seen in the hospital on was diagnosed with urinary retention with status post Rebolledo placement after which he had a CT of the abdomen and pelvis which noted a kidney stone. Patient had his Rebolledo removed and discharged with outpatient follow-up with urology. In the meantime, patient was told to drink a lot of fluids to help passed a kidney stone. Patient followed up with urology and has planned for cystoscopy and near future. As the patient has increased his fluid intake. He started to develop shortness of breath, lower extremity edema. Patient's notes he has orthopnea and normally sleeps on 2 pillows. He denies any chest pain or palpitations. He does have dyspnea on exertion. Also noticed increased lower extremity edema. HOSPITAL COURSE: During hospital stay following issue addressed 1. Acute decompensated systolic heart failure, prior EF 36%. The patient has been having increased fluid intake and effort to pass his kidney stone. He complains of dyspnea on exertion, orthopnea as well as lower extremity edema. Patient received treatment with IV Lasix with marked improvement his respirations status and edema 2. Acute urinary tract infection. Patient was found to have Enterococcus faecalis in his urine, patient received treatment with ceftriaxone 3. History of nephrolithiasis- CT abd/pelvis noted; will need outpt urology consult. ABI Most likely secondary to acute CHF superimposed with intensive diuresis DC IV Lasix, continue by mouth. BMP in 2 days with results to PCP. Close follow- up with PCP Elastic Yarn Twister Helper consult in the outpatient settings DISCHARGE MEDICATIONS: Please see below. ALLERGIES: Please see below. PHYSICAL EXAMINATION ON DISCHARGE: VITAL SIGNS: Please see below. Vitals: (see below) General: No acute distress, laying comfortably in bed. HEENT: Moist mucous membranes. Neck: No JVD Cardiac: RRR Pulm: No wheezing, rhonchi Abd: NT/ND + BS Ext: 1 pitting edema BLE, improving No cyanosis LABORATORY DATA: Please see below. IMAGING: CT abd/pelvis 1. Interval passage of the right vesicoureteral junction stone with improvement in the hydroureter and hydronephrosis since the previous study of 10/11/2019. 2. No renal stones on either side, and the left ureter without stone. 3. Enlarged prostate, as before. Cholelithiasis. Aside from the lower right distal ureteral stone, no interval change. PROGNOSIS: Fair ACTIVITY: [As tolerated]. DIET: Cardiac DISCHARGE PLAN: Follow-up with PCP in 2-3 days, BMP in 2 days, follow-up with bath solution maker in the outpatient settings and motor winder Follow-up with urologist DISPOSITION: 01 Home, Self-Care. DISCHARGE INSTRUCTIONS: Do not exceed 2 L of fluid ITEMS TO FOLLOWUP ON ON OUTPATIENT: BMP in 2 days DISCHARGE CONDITION: [Stable]. TIME SPENT ON DISCHARGE: Greater than 20 minutes. Vital Signs/I&Os Vital Signs Date Time Temp Pulse Resp B/P (MAP) Pulse Ox O2 Delivery O2 Flow Rate FiO2 10/19/19 08:18 67 136/66 10/19/19 08:00 97.5 18 95 Room Air I&O- Last 24 Hours up to 6 AM 10/19/19 06:00 Intake Total 960 ml Output Total 2250 ml Balance -1290 ml Laboratory Data Labs 24H Laboratory Tests 2 10/18/19 20:06: Bedside Glucose (Misc Panel) 188H 10/19/19 12:11: Bedside Glucose (Misc Panel) 190H FSBS Laboratory Tests Test 10/18/19 20:06 10/19/19 12:11 Range/Units Bedside Glucose (Misc Panel) 188 190 83-110 MG/DL Microbiology Microbiology 10/16/19 Blood Culture - Preliminary, Resulted No Growth after 48 hours. All Specime... 10/16/19 Blood Culture - Preliminary, Resulted No Growth after 48 hours. All Specime... 10/16/19 Urine Culture - Final, Complete Enterococcus Faecalis Discharge Medications Scheduled Amiodarone HCl (Amiodarone HCl) 200 Mg Tablet, 200 MG PO QPM, (Reported) Ampicillin Trihydrate (Ampicillin Trihydrate) 500 Mg Capsule, 1 CAP PO TID Apixaban (Eliquis) 5 Mg Tablet, 5 MG PO BID, (Reported) Aspirin (Aspirin EC) 81 Mg Tab, 81 MG PO DAILY, (Reported) Azithromycin (Azithromycin) 500 Mg Tablet, 500 MG PO 3XW, (Reported) MON/SAT/FRI Budesonide/Formoterol (Symbicort 160-4.5 Mcg Inhaler) 6 Gm Hfa.aer.ad, 2 PUFF INH BID, (Reported) Carvedilol (Carvedilol) 6.25 Mg Tab, 6.25 MG PO BID, (Reported) Cetirizine HCl (Cetirizine HCl) 10 Mg Tab, 10 MG PO DAILY, (Reported) Cholecalciferol (Vitamin D3) (Vitamin D3) 1,000 Unit Tablet, 2,000 UNITS PO DAILY, (Reported) Cyanocobalamin (Vitamin B-12) (Vitamin B12) 5,000 Mcg Tab.rapdis, 5,000 MCG SL DAILY, (Reported) Furosemide (Lasix) 40 Mg Tab, 40 MG PO DAILY, (Reported) Gabapentin (Gabapentin) 300 Mg Cap, 300 MG PO TID, (Reported) Insulin Glargine,Hum.rec.anlog (Lantus Solostar) 100 Unit/Ml Inj, 70 UNITS SC QHS, (Reported) Insulin Glargine,Hum.rec.anlog (Lantus Solostar) 100 Unit/1 Ml Insuln.pen, 60 UNIT SC QPM, (Reported) Magnesium Oxide (Magnesium Oxide) 400 Mg Tablet, 400 MG PO DAILY, (Reported) Metformin HCl (Metformin HCl) 500 Mg Tablet, 500 MG PO BID, (Reported) Multivitamins (Thera M Plus Tablet) 1 Each Tablet, 1 TAB PO DAILY, (Reported) Tamsulosin HCl (Flomax) 0.4 Mg Cap, 0.4 MG PO QHS, (Reported) Zinc (Zinc) 50 Mg Tablet, 25 MG PO DAILY, (Reported) Scheduled PRN Albuterol Sulfate (Ventolin Hfa) 18 Gm Hfa.aer.ad, 2 PUFFS INH QID PRN for SHORTNESS OF BREATH, (Reported) Hydrocodone/Acetaminophen (Hydrocodone-Acetamin 7.5-325) 1 Each Tablet, 1 TAB PO QID PRN for PAIN, (Reported) Ipratropium [place] (Ipratropium [place]) 15 Ml [place], 2 SPRAY [place] BID PRN for CONGESTION, (Reported) Tacrolimus (Protopic) 100 Gm Oint...g., 1 APLCT TOP BID PRN for RASH, (Reported) APPLY TO GROIN Triamcinolone Acetonide (Triamcinolone Acetonide) 454 Gm Oint...g., 1 APLCT TOP BID PRN for RASH, (Reported) APPLY TO CHEST/BACK Zolpidem Tartrate (Zolpidem Tartrate) 5 Mg Tablet, 5 MG PO QHS PRN for SLEEP, (Reported) Allergies Coded Allergies: oxycodone (Unverified Allergy, Unknown, 10/16/19) atorvastatin (Verified Adverse Reaction, Intermediate, MYALGIAS, 10/16/19) simvastatin (Verified Adverse Reaction, Intermediate, MYALGIAS, 10/16/19) naproxen (Verified Adverse Reaction, Mild, MEMORY LOSS, 10/11/19) YUNIOR MELENDREZ DO Oct 19, 2019 17:49
== END 2019-10-19 15:12 | disposition home or self-care (01) | DRG 291 ==
LOC: M ED 14:11 → M ED INP 18:14 → ENRESERV 18:56 → M PCU 20:56
PROVIDERS: ADMIT Internal Medicine; ATTEND Internal Medicine
DX: I13.0 Hypertensive heart and chronic kidney disease with heart failure and stage 1 through stage 4 chronic kidney disease, or unspecified chronic kidney disease (principal); I50.23 Acute on chronic systolic (congestive) heart failure; N39.0 Urinary tract infection, site not specified; N17.9 Acute kidney failure, unspecified; N20.1 Calculus of ureter; I25.10 Atherosclerotic heart disease of native coronary artery without angina pectoris; E11.22 Type 2 diabetes mellitus with diabetic chronic kidney disease; I48.91 Unspecified atrial fibrillation; N40.1 Benign prostatic hyperplasia with lower urinary tract symptoms; R33.9 Retention of urine, unspecified; B95.2 Enterococcus as the cause of diseases classified elsewhere; Z98.42 Cataract extraction status, left eye; Z95.1 Presence of aortocoronary bypass graft; N18.9 Chronic kidney disease, unspecified; Z98.41 Cataract extraction status, right eye; Z79.01 Long term (current) use of anticoagulants; Z79.4 Long term (current) use of insulin; Z79.899 Other long term (current) drug therapy; Z88.5 Allergy status to narcotic agent; Z88.6 Allergy status to analgesic agent; Z88.8 Allergy status to other drugs, medicaments and biological substances

== ENCOUNTER → 2019-12-04 | Outpatient (REF) | payer MEDICARE, OTHER ==
[~2019-12-04] MED LIST changes: +AMIO200T3 PO; +AMPI500C9 PO; +AZIT500T5 PO; +CVS5000S2 SL; +D31000TA2 PO; +ELIQ5TAB PO; +HYDR-4514 PO; +IPRA6SP NARES; +MAGN400T2 PO; +METF-839 PO; +PANT40TA29 PO; -PANT40TA3 PO; +PROT0.1O TOP; +SYMB16INH INH; +TRIA0.027 TOP; +VENTAER INH; +VITMTA PO; +ZINC1TAB2 PO; +ZOLP5TAB PO
[2019-12-04 19:59] LABS: ALBUMIN 3.6 GM/DL (3.2-5.2); CREATININE FOR GFR 3.19 MG/DL (0.70-1.30); GLOMERULAR FILTRATION RATE 20.2 (>42); PHOSPHORUS LEVEL 2.7 MG/DL (2.5-4.9); POTASSIUM SERUM 4.3 MEQ/L (3.5-5.1)
== END ==
LOC: M SFHCADAM 17:47
PROVIDERS: ATTEND Family Medicine
DX: N18.4 Chronic kidney disease, stage 4 (severe) (principal)

== ENCOUNTER → 2020-01-19 | Outpatient (REF) | payer MEDICARE, OTHER ==
[2020-01-19 17:46] LABS: HEMOGLOBIN A1c 6.3 %
[2020-01-19 18:00] LABS: ALBUMIN 3.5 GM/DL (3.2-5.2); ALT/SGPT 33 U/L (12-78); BILIRUBIN,TOTAL 0.8 MG/DL (0.2-1.0); BLOOD UREA NITROGEN 34 MG/DL (7-18); CARBON DIOXIDE LEVEL 32 MEQ/L (21-32); CHLORIDE LEVEL 103 MEQ/L (98-107); CREATININE FOR GFR 2.98 MG/DL (0.70-1.30); FERRITIN 102 NG/ML (26-388); GLOMERULAR FILTRATION RATE 21.8 (>42); GLUCOSE, FASTING 127 MG/DL (70-100); IRON (FE) 73 UG/DL (65-175); PERCENT SATURATION 22.7 % (19.7-50.0); POTASSIUM SERUM 4.7 MEQ/L (3.5-5.1); SODIUM LEVEL 138 MEQ/L (136-145); TOTAL IRON BINDING CAPACITY 321 UG/DL (250-450); TOTAL PROTEIN 6.9 GM/DL (6.4-8.2)
[2020-01-19 18:10] LABS: VITAMIN B12 LEVEL > 2000 PG/ML (247-911)
== END ==
LOC: M SFHCADAM 14:46
PROVIDERS: ATTEND Family Medicine
DX: N18.30 Chronic kidney disease, stage 3 unspecified (principal); I11.9 Hypertensive heart disease without heart failure; E11.22 Type 2 diabetes mellitus with diabetic chronic kidney disease; E11.40 Type 2 diabetes mellitus with diabetic neuropathy, unspecified; D63.1 Anemia in chronic kidney disease; I50.40 Unspecified combined systolic (congestive) and diastolic (congestive) heart failure; Z20.828 Contact with and (suspected) exposure to other viral communicable diseases
CPT/HCPCS: 80053; 82607; 82728; 83036; 83550; 85046; 86769; G0463

== ENCOUNTER 2020-08-30 21:09 | Inpatient (IN) | payer MEDICARE, OTHER ==
[~2020-08-30] VITALS: Ht 182.9 cm; Wt 96.1 kg
[2020-08-30] MEDS: HumaLOG INSULIN (NovoLOG) PER UNIT SC SCH (21:00)
[~2020-08-30 21:09] MED LIST changes: +GABA-282 PO; -GABA-843 PO; +IPRA6SP; -IPRA6SP NARES
[2020-08-30 22:14] LABS: BASO # 0.1 10^3/uL (0.0-0.2); BASO % 0.9 % (0.0-1.0); EOS # 0.5 10^3/uL (0.0-0.5); EOS % 7.1 % (0.0-3.0); HEMATOCRIT 35.9 % (42.0-52.0); HEMOGLOBIN 12.3 g/dl (13.5-17.5); LYMPH # 1.4 10^3/uL (1.5-5.0); LYMPH % 20.4 % (24.0-44.0); MEAN CORPUSCULAR HEMOGLOBIN 31.9 pg (27.0-33.0); MEAN CORPUSCULAR HGB CONC 34.3 g/dl (32.0-36.5); MONO # 0.7 10^3/uL (0.0-0.8); MONO % 10.3 % (2.0-8.0); NEUTROPHILS # 4.1 10^3/uL (1.5-8.5); NEUTROPHILS % 60.9 % (36.0-66.0); PLATELET COUNT, AUTOMATED 105 10^3/uL (150-450); RED BLOOD COUNT 3.86 10^6/uL (4.30-6.10); VENOUS BASE EXCESS 2.9 (-2.0-2.0); VENOUS HCO3 29.1 MEQ/L (23.0-27.0); VENOUS O2 SATURATION 81.3 % (60.0-80.0); VENOUS PARTIAL PRESSURE CO2 51.4 mmHg (38.0-50.0); VENOUS PARTIAL PRESSURE O2 47.2 mmHg (30.0-50.0); VENOUS PH 7.371 UNITS (7.330-7.430); VENOUS STANDARD HCO3 26.7 MEQ/L; VENOUS TOTAL CO2 30.7 MEQ/L (24.0-28.0); WHITE BLOOD COUNT 6.7 10^3/uL (4.0-10.0)
--- NOTE | 2020-08-30 23:10 | REPVR ---
PROCEDURE INFORMATION: Exam: XR Chest Exam date and time: 08/30/2020 10:29 PM Age: 80 years old Clinical indication: Cough; Additional info: Dyspnea/cough TECHNIQUE: Imaging protocol: XR of the chest. Views: 1 view. COMPARISON: CR Chest, 2 view PA, Lat 10/16/2019 3:15 PM FINDINGS: Tubes, catheters and devices: Sternal wires. Lungs: Unremarkable. No consolidation. Pleural spaces: Unremarkable. No pleural effusion. No pneumothorax. Heart/Mediastinum: Mediastinal clips. Cardiomegaly. Bones/joints: Unremarkable. IMPRESSION: No acute abnormality. Electronically signed by: Jose Rojas On 08/30/2020 23:10:21 PM
[2020-08-30 23:24] LABS: ALBUMIN 3.8 GM/DL (3.2-5.2); BILIRUBIN,DIRECT 0.3 MG/DL (0.0-0.2); BILIRUBIN,TOTAL 1.2 MG/DL (0.2-1.0); CALCIUM LEVEL 9.2 MG/DL (8.8-10.2); CREATININE FOR GFR 2.8 MG/DL (0.70-1.30); GLOMERULAR FILTRATION RATE 23.4 (>42); MB/CK RELATIVE INDEX 0.64 (< OR =4); POTASSIUM SERUM 4.1 MEQ/L (3.5-5.1); THYROID STIMULATING HORMONE 2.58 uIU/ML (0.358-3.740); THYROXINE (T4) 11.3 UG/DL (4.5-12.0); TOTAL PROTEIN 6.9 GM/DL (6.4-8.2); TROPONIN I 0.7 NG/ML (< 0.10)
[2020-08-31] VITALS (20 sets, daily range): BP systolic 112–134; BP diastolic 58–76; O2SAT 90–95
--- NOTE | 2020-08-31 00:19 | REPVR ---
PROCEDURE INFORMATION: Exam: CT Chest Without Contrast; Diagnostic Exam date and time: 08/30/2020 11:25 PM Age: 80 years old Clinical indication: Cough and shortness of breath; Additional info: SOB HX chf, weight gain and peripheral edema TECHNIQUE: Imaging protocol: Diagnostic computed tomography of the chest without contrast. 3D rendering (Not supervised by radiologist): MIP and/or 3D reconstructed images were created by the technologist. Radiation optimization: All CT scans at this facility use at least one of these dose optimization techniques: automated exposure control; mA and/or kV adjustment per patient size (includes targeted exams where dose is matched to clinical indication); or iterative reconstruction. COMPARISON: CT Chest without contrast 08/07/2017 3:35 PM FINDINGS: Lungs: Unremarkable. No consolidation. No masses. Pleural spaces: Unremarkable. No pneumothorax. No pleural effusion. Heart: Coronary vasculature calcifications. Aorta: Unremarkable. No aortic aneurysm. Lymph nodes: Mediastinal lymph node calcifications. Subcarinal lymph node measuring less than 1 cm in short axis. Liver: Calcified granulomas of the liver and spleen. Gallbladder and bile ducts: Cholelithiasis. Bones/joints: Degenerative changes of the spine. Soft tissues: Unremarkable. IMPRESSION: No acute abnormality. Electronically signed by: Jose Rojas On 08/31/2020 00:19:02 AM
--- NOTE | 2020-08-31 00:20 | REPVR ---
PROCEDURE INFORMATION: Exam: US Duplex Lower Extremity Veins, Bilateral Exam date and time: 08/30/2020 11:59 PM Age: 80 years old Clinical indication: Edema, localized; Lower extremity, bilateral; Additional info: Edema R/O dvt TECHNIQUE: Imaging protocol: Real-time duplex ultrasound of the extremities with 2-D salcido scale, color Doppler flow and spectral waveform analysis with image documentation. Complete exam focused on the bilateral lower extremity veins. COMPARISON: US Duplex, Ext LOWER veins, bilat 10/16/2019 6:24 PM FINDINGS: Right deep veins: Unremarkable. The common femoral, femoral, proximal profunda femoral and popliteal veins are patent without thrombus. Normal Doppler waveforms. Normal compressibility and/or augmentation response. Right superficial veins: Saphenofemoral junction is patent without thrombus. Left deep veins: Unremarkable. The common femoral, femoral, proximal profunda femoral and popliteal veins are patent without thrombus. Normal Doppler waveforms. Normal compressibility and/or augmentation response. Left superficial veins: Saphenofemoral junction is patent without thrombus. Soft tissues: Unremarkable. IMPRESSION: No evidence of deep vein thrombosis. Electronically signed by: Jose Rojas On 08/31/2020 00:20:14 AM
[2020-08-31] MEDS ORDERED: OXYC1TAB23 PO (00:33)
[2020-08-31] MEDS ORDERED: ATOR40TA75 PO (00:33)
[2020-08-31] MEDS ORDERED: ALLO100T PO (00:33)
[2020-08-31] MEDS ORDERED: NITR4TASL SL (00:33)
[2020-08-31] MEDS ORDERED: COLC0.6T47 PO (00:33)
[2020-08-31 01:24] LABS: MB/CK RELATIVE INDEX 0.64 (< OR =4); TROPONIN I 0.65 NG/ML (< 0.10)
[2020-08-31] MEDS ORDERED: FUROSEMIDE 40 MG TAB PO ONE (02:40)
[2020-08-31] MEDS ORDERED: MAALOX 30 ML SUSP *UDC PO PRN (03:10)
[2020-08-31] MEDS ORDERED: MOM 30ML SUSPENSION UDC PO PRN (03:10)
[2020-08-31] MEDS ORDERED: GLUCOSE 4GM CHEW TABLET PO PRN (03:20)
[2020-08-31] MEDS ORDERED: GLUCAGON INJ 1MG VIAL SC PRN (03:20)
[2020-08-31] MEDS ORDERED: IPRATROPIUM 0.06% NASAL SPRAY 15 ML (ATROVENT) PRN (03:20)
[2020-08-31] MEDS ORDERED: DEXTROSE 50% 50 ML SYRINGE IV PRN (03:20)
[2020-08-31] MEDS ORDERED: ALBUTEROL 90 MCG/ACT 8GM HFA INHALER INH PRN (03:20)
--- NOTE | 2020-08-31 04:11 | HPEPDOC ---
[facility] Medical History & Physical Date of Admission August 31, 2020 Date of Service: August 31, 2020 Primary Care Physician: Raheel Johnson MD Attending Physician: CRISTOBAL LYNN MD History and Physical CHIEF COMPLAINT: Shortness of breath on mild exertion and wet Cough but unable to bring any sputum up. HISTORY OF PRESENT ILLNESS: Pt is a 80 year old male with a very heavy past medical history. Pt has CAD(post-anterior IL) s/p Thrombolytics in 2004-s/p CABG, insulin-dependent diabetes mellitus type 2, congestive heart failure-grade 2 diastolic dysfunction(latest echo done and October 2019), stage IV CK D, Crohn's disease, GERD, gout, BPH, ulcerative colitis, fatty liver, hypertension, history of atrial fibrillation status post failed cryoablation, recurrence of atrial fibrillation(on Eliquis and amiodarone), bronchiectasis, obstructive sleep apnea(does not use his CPAP ), history of osteochondroma. He presents to the emergency department due to concerns of worsening shortness of breath where taking even a few steps made him gonzales and puff and productive cough(unable to bring sputum up). Patient states the symptoms started 2 weeks ago but got progressively worse and unbearable this morning. He is also complaining fo some unintentional weight gain with bilateral leg swelling. 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 Pt says that he has been non compliant over the past winter months with his diet and activity levels especially because of his Gout flare ups.. His last two days after many months got to be more active when he started having these worsening. Pt overall is compliant with his medications , has no recent changes made to his medications and no recent hospitalizations in [place] . Pt denies any chest pain, palpitations, fevers, chills, myalgias, sore throat, weakness, vision changes , nausea, vomiting, diarrhea or constipation. PAST MEDICAL HISTORY: 1. Coronary artery disease-posterior anterior wall [place] status post thrombolytics in 2004. 2. Insulin-dependent diabetes mellitus. 3. Hypertension. 4. Grade 2 diastolic dysfunction congestive heart failure. 5. Rate controlled Atrial fibrillation 6. Stage IV CKD 7. GERD 8. Crohn's disease PAST SURGICAL HISTORY: 1. Cryoablation for atrial fibrillation. 2. CABG in December 2016. 3. Bilateral cataracts 2011 4. Colonoscopy 2010 5.TRUSS BX NEGATIVE 2006. SOCIAL HISTORY: Tobacco use:Former smoker- Quit 50 years ago. Smoked for 20 years about a pack a day ETOH: Occasional Illicit drug use: None Tattoos done unprofessionally: None. IV drug use: Denies Other relevant social factors: None FAMILY HISTORY: Father: , heart diseasedied of [place] at 65 Mother: - of pancreatic cancer, diabetes ALLERGIES: Please see below. REVIEW OF SYSTEMS: General: Reports: Normal Appetite; Denies: Fatigue, Malaise Constitutional: Denies: Fever, Chills, Sweats, Weakness, Malaise Eyes: Denies: Pain, Vision change ENT: Denies: Head Aches, Sore Throat, Epistaxis Skin: Denies: Rash, Lesions, Breakdown, Nail Changes Pulmonary: Reports: SOB and Cough Denies: pleuritic chest pain. Cardiovascular: Denies Chest Pain, Denies Palpitations Gastrointestinal: Denies: Nausea, Vomiting, Abdominal Pain, diarrhea,constipation Genitourinary: Denies: Dysuria, Frequency, Incontinence, Hematuria Hematologic: Denies: Bruising, Bleeding Excessively Endocrine: Denies: Polydipsia, Polyphagia, Polyuria Neurological: Denies: Weakness, Numbness, Incoordination, Change in Speech Psych: Reports: Mood Normal; Denies: Anxiety, Depression HOME MEDICATIONS: Please see below. PHYSICAL EXAMINATION: VITAL SIGNS: Temperature 97.6, pulse 106, respiratory rate 19, blood pressure 143/70, pulse oximetry 95 % on room air. GENERAL APPEARANCE: Patient looks in moderate distress stopping in between sentences to catch breath and cough. Not using accessory muscles of breathing. HEENT: Atraumatic, normocephalic, moist mucous membranes, PERRLA, EOMI, conjunctival pallor negative, icterus negative. CARDIOVASCULAR: Rate normal, rhythm irregular, no murmurs appreciated. LUNGS: Diminished breath sounds but actually, wheezing heard in the bilateral upper lobes, bilateral crackles at the bases. ABDOMEN: Obese abdomen, nondistended, nontender, no organomegaly MUSCULOSKELETAL: No obvious deformity, no joint swelling. EXTREMITIES: 2+ pedal edema in bilateral lower extremities, good volume pulses, normal capillary refill. NEUROLOGICAL: Intact 5 grades, sensations intact, cranial 2-12 intact. PSYCHIATRIC:, Mood and affect. Slightly anxious. LABORATORY DATA: See below. IMAGING: Chest x-ray done on 08/31/2020: Shows no acute abnormality. CT chest done on 08/31/2020: FINDINGS: Lungs: Unremarkable. No consolidation. No masses. Pleural spaces: Unremarkable. No pneumothorax. No pleural effusion. Heart: Coronary vasculature calcifications. Aorta: Unremarkable. No aortic aneurysm. Lymph nodes: Mediastinal lymph node calcifications. Subcarinal lymph node measuring less than 1 cm in short axis. Liver: Calcified granulomas of the liver and spleen. Gallbladder and bile ducts: Cholelithiasis. Bones/joints: Degenerative changes of the spine. Soft tissues: Unremarkable. MICROBIOLOGY: Please see below. ASSESSMENT AND PLAN: : Pt is a 80 year old male with a very heavy past medical history. Pt has CAD(post-anterior [place]) s/p Thrombolytics in 2004-s/p CABG, insulin-dependent diabetes mellitus type 2, congestive heart failure-grade 2 diastolic dysfunction(latest echo done and October 2019), stage IV CK D, Crohn's disease, GERD, gout, BPH, ulcerative colitis, fatty liver, hypertension, history of atrial fibrillation status post failed cryoablation, recurrence of atrial fibrillation(on Eliquis and amiodarone), bronchiectasis, obstructive sleep apnea(does not use his CPAP ), history of osteochondroma. He presents to the emergency department due to concerns of worsening shortness of breath where taking even a few steps made him gonzales and puff and productive cough(unable to bring sputum up). Patient states the symptoms started 2 weeks ago but got progressively worse and unbearable this morning. He is also complaining fo some unintentional weight gain with bilateral leg swelling. . # Acute exacerbation of CHF secondary to dietary non-compliance: -Pt was admitted with continous tele monitoring. -Strict I's and O's. -Weigh the pt daily. -Pt was started on a scheduled dose of I/V Lasix 4o mg Q8H. -For cough relief- ordered Robitussin syrup Q4H. -Ekg done- shows chronic rate controlled atrial fibrillation -an ECHO was ordered. -Pro Bnp = 4078 -Trending troponins. -Pt started on a low sodium diet with fluid restriction. -Hold his home lasix dose. #Recurrent rate controlled Atrial fibrillation: -Continue patient's Eliquis and Amiodarone from home. -No side effects stated with above medications. # Hypertension: -Continue his home medications with holding parameters. #CT findings: -Liver: Calcified granulomas of the liver and spleen. -Mediastinal lymph node calcifications. Subcarinal lymph node measuring less than 1 cm in short axis. -Needs to be followed up outpatient. #CKD Stage 4: -Holding Nephrotoxic medications -Monitor the Creatinine. -pt's basline creatinine stays within #QUENTIN: -Pt does not wear a CPAP. -Pt needs to follow up with his elementary school social worker and discuss the use of a CPAP. -Pt verbalized understanding. #Bronchiectasis: -Continue with home steroid inhaler as needed -Albuterol rescue inhaler. -Robitussin ordered to loosen the secretions for a better ease of breathing. -N acetyl cyteine as an additional mucolytic agent. # Transaminitis secondary to congestive hepatopathy due to fluid overload: -Pt is being Diuresed. -Will trend the liver enzymes. Should trend down. -Held the patient's Statins and Colchicine. #GERD: -Placed an order for Pantoperazole 40 mg daily. #Gout: -held the patient's Allopurinol due to likely nephrotoxicity . -Pain control to be managed by Tylenol as needed. - #Chronic back pain: -Tylenol as needed for pain control. -Please avoid nephrotoxic options. #History of Crohn's disease: -In remission as per patient. -No treatment. #BPH: -Continue Tamsulosin. #Constipation: -Bowel regime ordered for the patient as needed. DVT Prophylaxis: Teds and sequentials. Continue Eliquis. DISPOSITION: Pending improvement. May require 2 days of hospital stay. Vital Signs Vital Signs Date Time Temp Pulse Resp B/P (MAP) Pulse Ox O2 Delivery O2 Flow Rate FiO2 08/31/20 03:24 95 18 95 Room Air 08/31/20 03:12 180/98 (125) 08/30/20 21:10 97.6 Laboratory Data Labs 24H Laboratory Tests 2 08/30/20 22:01: Immature Granulocyte % (Auto) 0.4, Neutrophils (%) (Auto) 60.9, Lymphocytes (%) (Auto) 20.4L, Monocytes (%) (Auto) 10.3H, Eosinophils (%) (Auto) 7.1H, Basophils (%) (Auto) 0.9, Neutrophils # (Auto) 4.1, Lymphocytes # (Auto) 1.4L, Monocytes # (Auto) 0.7, Eosinophils # (Auto) 0.5, Basophils # (Auto) 0.1, Nucleated Red Blood Cells % (auto) 0.0, Blood Gas Bicarbonate Standard 26.7, Venous Blood pH 7.371, Venous Blood Partial Pressure CO2 51.4H, Venous Blood Partial Pressure O2 47.2, Venous Blood Total Carbon Dioxide 30.7H, Venous Blood HCO3 29.1H, Venous Blood Oxygen Saturation 81.3H, Venous Blood Base Excess 2.9H, Anion Gap 7L, Glomerular Filtration Rate 23.4L, Calcium Level 9.2, Total Bilirubin 1.2H, Direct Bilirubin 0.3H, Aspartate Amino Transf (AST/SGOT) 58H, Alanine Aminotransferase (ALT/SGPT) 46, Alkaline Phosphatase 108, Total Creatine Kinase 1251H, Creatine Kinase MB 8.0H, Creatine Kinase MB Relative Index 0.64, Troponin I 0.70H, OU-Udg-P-Type Natriuretic Peptide 4078H, Total Protein 6.9, Albumin 3.8, Albumin/Globulin Ratio 1.2, Thyroid Stimulating Hormone (TSH) 2.580, Thyroxine (T4) 11.3 08/30/20 22:02: Lactic Acid Level 1.2 08/31/20 00:37: Total Creatine Kinase 1093H, Creatine Kinase MB 7.0H, Creatine Kinase MB Relative Index 0.64, Troponin I 0.65H CBC/BMP Laboratory Tests 08/30/20 22:01 Microbiology Microbiology 08/30/20 Respiratory Virus Panel (PCR) (RYAN) - Final, Complete 08/30/20 Blood Culture, Received Pending Home Medications Scheduled Allopurinol (Allopurinol) 100 Mg Tablet, 100 MG PO BID Apixaban (Eliquis) 5 Mg Tablet, 5 MG PO BID Aspirin (Aspirin EC) 81 Mg Tab, 81 MG PO QHS Atorvastatin Calcium (Atorvastatin Calcium) 40 Mg Tablet, 40 MG PO 3XW SATURDAY, SATURDAY AND SATURDAY @ QHS Budesonide/Formoterol (Symbicort 160-4.5 Mcg Inhaler) 6 Gm Hfa.aer.ad, 2 PUFF INH BID Carvedilol (Carvedilol) 6.25 Mg Tab, 3.125 MG PO BID Cetirizine HCl (Cetirizine HCl) 10 Mg Tab, 10 MG PO QHS Cholecalciferol (Vitamin D3) (Vitamin D3) 1,000 Unit Tablet, 2,000 UNITS PO DAILY Furosemide (Lasix) 40 Mg Tab, 40 MG PO DAILY Gabapentin (Gabapentin) 300 Mg Cap, 300 MG PO QHS Insulin Glargine,Hum.rec.anlog (Lantus Solostar) 100 Unit/Ml Inj, 70 UNITS SC QHS Magnesium Oxide (Magnesium Oxide) 400 Mg Tablet, 400 MG PO DAILY Multivitamins (Thera M Plus Tablet) 1 Each Tablet, 1 TAB PO DAILY Tamsulosin HCl (Flomax) 0.4 Mg Cap, 0.4 MG PO QHS Scheduled PRN Albuterol Sulfate (Ventolin Hfa) 18 Gm Hfa.aer.ad, 2 PUFFS INH QID PRN for SHORTNESS OF BREATH Colchicine (Colchicine) 0.6 Mg Tablet, 0.6 MG PO DAILY PRN for GOUT FLARE-UP Ipratropium [place] (Ipratropium [place]) 15 Ml [place], 2 SPRAY NA BID PRN for NASAL CONGESTION Nitroglycerin (Nitrostat) 0.4 Mg Tab.subl, 0.4 MG SL NITRO PRN for CHEST PAIN Oxycodone HCl/Acetaminophen (Oxycodone-Acetaminophen 5-325) 1 Each Tablet, 1 TAB PO Q6H PRN for PAIN Tacrolimus (Protopic) 100 Gm Oint...g., 1 DOSE TOP BID PRN for RASH APPLY TO GROIN Allergies Coded Allergies: simvastatin (Verified Adverse Reaction, Intermediate, MYALGIAS, 10/16/19) naproxen (Verified Adverse Reaction, Mild, MEMORY LOSS, 10/11/19) A-FIB/CHADSVASC A-FIB History Current/History of A-Fib/PAF?: Yes Current PO Anticoag Therapy: Yes GME ATTESTATION GME ATTESTATION My faculty preceptor for this patient encounter was physically present during the encounter and was fully available. All aspects of the patient interview, examination, medical decision making process, and medical care plan development were reviewed and approved by the faculty preceptor. The faculty preceptor is aware and concurs with the plan as stated in the body of this note and will attest to such by his/her cosignature. Kathi Mendes MD August 31, 2020 04:11
[2020-08-31] MEDS ORDERED: guaiFENesin/CODEINE SYRUP 5 ML UDC PO SCH (04:20)
[2020-08-31] MEDS ORDERED: PANTOPRAZOLE 40MG TAB (PROTONIX) PO ONE (04:30)
--- NOTE | 2020-08-31 05:37 | ECGEPIP ---
[facility] - ED Test Date: 2020-08-30 Pat Name: JAY HOUSE Department: Room: - Gender: Male Site Safety Representative: SONAL : 1940 Requested By: ROLDAN Edwards Order Number: [id number] Reading MD: David Mckenna Measurements Intervals [place] Rate: 108 P: [place]: QRS: -39 QRSD: 98 T: 104 QT: 378 QTc: 506 Interpretive Statements Atrial fibrillation with rapid ventricular response with frequent ventricular premature complexes Left axis deviation POOR R WAVE PROGRESSION SIMILAR TO 10/17/19 Electronically Signed on 08-31-2020 5:37:15 EDT by David Mckenna
--- NOTE | 2020-08-31 05:47 | ECGEPIP ---
[facility] - ED Test Date: 2020-08-31 Pat Name: JAY HOUSE Department: Room: - Gender: Male Supervisor [employer]: SONAL : 1940 Requested By: ROLDAN Edwards Order Number: [id number] Reading MD: David Mckenna Measurements Intervals [place] Rate: 94 P: [place]: 186 QRS: -29 QRSD: 92 T: 113 QT: 386 QTc: 482 Interpretive Statements Sinus rhythm with premature supraventricular complexes and with occasional premature ventricular complexes BORDERLINE LEFT AXIS DEVIATION POOR R WAVE PROGRESSION SIMILAR TO 08/31/20 Electronically Signed on 08-31-2020 5:47:40 EDT by David Mckenna
[2020-08-31 05:56] LABS: PHOSPHORUS LEVEL 3.5 MG/DL (2.5-4.9); TROPONIN I 0.62 NG/ML (< 0.10)
[2020-08-31] MEDS: HumaLOG INSULIN (NovoLOG) PER UNIT SC SCH ×4 (07:15→20:48)
[2020-08-31] MEDS: SYMBICORT 160/4.5MCG INHALER 6GM INH SCH ×2 (07:18→20:04)
[2020-08-31 07:37] LABS: HEMATOCRIT 35.6 % (42.0-52.0); MEAN CORPUSCULAR HEMOGLOBIN 31.7 pg (27.0-33.0); MEAN CORPUSCULAR HGB CONC 33.7 g/dl (32.0-36.5); MEAN CORPUSCULAR VOLUME 93.9 fl (80.0-96.0); PLATELET COUNT, AUTOMATED 114 10^3/uL (150-450); RED BLOOD COUNT 3.79 10^6/uL (4.30-6.10); WHITE BLOOD COUNT 7.5 10^3/uL (4.0-10.0)
[2020-08-31] MEDS ORDERED: FUROSEMIDE 40MG/4ML VIAL (J1940) IV SCH (08:00)
[2020-08-31] MEDS: APIXABAN 5 MG TAB (ELIQUIS) PO SCH ×2 (08:04→20:03)
[2020-08-31] MEDS: CARVedilol 3.125 MG TAB PO SCH ×2 (08:04→20:04)
[2020-08-31] MEDS: FUROSEMIDE 40MG/4ML VIAL (J1940) IV SCH ×2 (08:04→16:44)
[2020-08-31] MEDS: DOCUSATE SODIUM 100MG CAPSULE PO SCH ×2 (08:04→20:03)
[2020-08-31] MEDS: VITAMIN D 1,000 INTERNATIONAL UNITS TABLET PO SCH (08:04)
[2020-08-31] MEDS: guaiFENesin/CODEINE SYRUP 5 ML UDC PO PRN ×2 (08:07→16:45)
[2020-08-31 10:19] LABS: CALCIUM LEVEL 8.9 MG/DL (8.8-10.2); CREATININE FOR GFR 2.55 MG/DL (0.70-1.30); GLOMERULAR FILTRATION RATE 26.1 (>42); POTASSIUM SERUM 3.6 MEQ/L (3.5-5.1)
[2020-08-31] MEDS: TAMSULOSIN 0.4 MG CAP PO SCH (20:03)
[2020-08-31] MEDS: CETIRIZINE (ZyrTEC) 10 MG TAB PO SCH (20:03)
[2020-08-31] MEDS: ASPIRIN 81MG ENTERIC TABLET PO SCH (20:03)
[2020-08-31] MEDS: GABAPENTIN 300 MG CAP PO SCH (20:03)
[2020-08-31] MEDS ORDERED: LEVEMIR (INSULIN DETEMIR) 1 UNITS/0.01ML SC SCH (21:00)
[2020-09-01] VITALS (19 sets, daily range): BP systolic 115–149; BP diastolic 60–82; O2SAT 78–96
[2020-09-01] MEDS: FUROSEMIDE 40MG/4ML VIAL (J1940) IV SCH ×3 (00:32→16:15)
[2020-09-01] MEDS: guaiFENesin/CODEINE SYRUP 5 ML UDC PO PRN ×3 (00:32→20:55)
[2020-09-01] MEDS: ACETAMINOPHEN TAB 650MG DOSE (2X325MG) PO PRN (00:40)
[2020-09-01 06:51] LABS: CHOLESTEROL RISK RATIO 2.684 (<5)
[2020-09-01] MEDS: SYMBICORT 160/4.5MCG INHALER 6GM INH SCH ×2 (07:15→19:36)
--- NOTE | 2020-09-01 08:17 | REP ---
INDICATION: CHF exacerbation COMPARISON: 08/30/2020 TECHNIQUE: PA and lateral. FINDINGS: The mediastinum and cardiac silhouette are stable. The lung selby demonstrate stable chronic appearing changes without definite acute consolidation, effusion, or pneumothorax. The skeletal structures are intact and normal. IMPRESSION: Stable chronic appearing changes. No obvious acute consolidation. No effusion. <Electronically signed by Javed Guzman > 09/01/20 0813
[2020-09-01] MEDS: VITAMIN D 1,000 INTERNATIONAL UNITS TABLET PO SCH (08:47)
[2020-09-01] MEDS: DOCUSATE SODIUM 100MG CAPSULE PO SCH ×2 (08:47→20:57)
[2020-09-01] MEDS: CARVedilol 3.125 MG TAB PO SCH ×2 (08:47→20:56)
[2020-09-01] MEDS: APIXABAN 5 MG TAB (ELIQUIS) PO SCH ×2 (08:47→20:55)
[2020-09-01] MEDS: HumaLOG INSULIN (NovoLOG) PER UNIT SC SCH ×4 (08:48→20:47)
[2020-09-01 09:49] LABS: CALCIUM LEVEL 8.4 MG/DL (8.8-10.2); CREATININE FOR GFR 2.58 MG/DL (0.70-1.30); GLOMERULAR FILTRATION RATE 25.7 (>42); POTASSIUM SERUM 3.5 MEQ/L (3.5-5.1); TROPONIN I 0.3 NG/ML (< 0.10)
--- NOTE | 2020-09-01 10:02 | ECHO ---
DATE OF PROCEDURE: 08/31/2020 Age: 80 Gender: Male Height: 183 cm Weight: 100 kg REFERRING PHYSICIAN: Alize Beaver MD INDICATION: Heart failure unspecified, elevated troponin. MEASUREMENTS: 2D Measurements: Intraventricular septum 1.21 cm Posterior wall 1.05 cm Left ventricle diastole 5.0 cm Aortic root 3.6 cm Left atrium 4.7 cm Left atrial volume index 33 cm Proximal ascending aorta 3.4 cm Doppler Measurements: None acquired. MITRAL ANNULAR TISSUE DOPPLER Not performed. DESCRIPTION: Rhythm was atrial flutter with very frequent PVCs including ventricular bigeminy. This was a moderately technically difficult echocardiogram. No subcostal view available (technically difficult). No pericardial effusion. CONCLUSIONS: 1. Mild focal hypertrophy of the basal anterior ventricular septum. Normal left ventricle size at end-diastole. Akinesis of the mid anteroseptal and mid anterior segments. Akinesis of left ventricle apex. Normal regional LV wall motion and wall thickening elsewhere. Mild-moderate reduction of overall LV systolic function. LVEF 40-45% by visual estimate. No left ventricle apical thrombus. 2. Mild aortic valve sclerosis of a 3-cuspid aortic valve. No aortic regurgitation. 3. Mild mitral annular calcification. Trace mitral regurgitation. 4. Mild left atrial dilatation by left atrial volume index. 5. Normal right ventricle size and systolic function. 6. No pericardial effusion. MTDD
--- NOTE | 2020-09-01 11:43 | IPNPDOC ---
Text Note Date of Service The patient was seen on 09/01/20. NOTE Cardiology consultation: Date: 09/01/2020 Referring Physician: Chief complaint: Acute exacerbation of CHF History of present illness: Mr. Richey is a 80 year old male with PMH of CAD(open heart surgery in ), S/p CABG with stenting in 2004 and 2019, IDDM type 2, HTN, diastolic CHF with EF 40-50% in last echo, A.fib S/p ablation failure on Eliquis, CKD 4, Crohn's disease/ulcerative colitis not on any medication, GERD, Gout, BPH, QUENTIN not on Cpap at home, H/o of bronchiectasis, h/o of osteochondroma presented to ED with SOB, dry cough, fatigue and B/l leg swelling. He reports he has travelled from [place] about a week ago and was travelling by road and upon arrival he did notice mild swelling in his legs which gradually increased. He did notice his SOB and cough is also gradually worsened in day or two after return. He reports he has increased weight due to his gout attacks(b/l metatarsal joints) in winter and did not do much activity. He denies having any fever, chills, sore throat. He reports to complaint with his medications. Past medical history: CAD open heart surgery A. fib S/p ablation failure IDDM type 2 HTN HFpEF ef 40-50% CKD 4 Crohn's/ UC GERD BPH QUENTIN not on CPAP at home H/o bronchiectasis H/o Osteochondroma Past Surgical history: Ablation for A. fib CABG B/l cataracts colonoscopy in 2010 A history: Former smoker, quit 50 years ago. Plan follow: Occasionally. No illicit drug use. Family history: Father history of heart disease and of NV Mother from from pancreatic cancer, history of diabetes. REVIEW OF SYSTEMS: Constitutional: Denies fever, chills, night sweats, weight loss, headaches. Eyes: Denies any blurry vision or double vision. ENT: Denies any dysphagia, odynophagia, ear discharge, sore throat. Cardiovascular: Denies any chest pain, palpitations, orthopnea/PND. Respiratory: Reports having shortness of breath and cough, no pleuritic chest pain. Gastrointestinal (GI): Denies any nausea, vomiting, diarrhea, reports having constipation, no melena, hematochezia. Genitourinary: Denies dysuria, hematuria. Musculoskeletal: Denies any muscle pains or joint aches. Skin: Denies unsual rashes or ulcers. Hematology/Oncology: Denies any easy bleeding or bruising. Endocrine: Denies cold intolerance, heat intolerance, polydipsia, polyphagia, polyuria All other review of systems is negative. Physical examination General: Patient is awake, alert, oriented times three, laying in bed , no apparent distress. Neck: supple, no masses, trachea midline, no thyroid nodules, masses, tenderness or enlargement. Cardiovascular: S1, S2 normal, irregular rhythm, no murmur appreciated. Respiratory: Diminished breath sounds bilaterally, no crackles, No rhonchi, mild expiratory wheezes and few areas. Abdomen: Soft, bowel sounds positive, no bruits. No tenderness to palpation in any quadrant. Extremities: No clubbing or cyanosis. No edema, no tenderness. Central nervous system (LATHE OPERATOR): Awake, alert and fully oriented. No focal deficits. Imaging: Chest x-ray done on 08/30/2020: Reported as: No acute abnormalities. Vascular ultrasound done on 08/30/2020, in bilateral lower extremities: Reported as: No evidence of DVT. Chest CT done on 08/30/2020: Reported as: No acute abnormalities. [Lungs unremarkable no consolidation no masses or no pleural effusion appreciated.] Chest x-ray done on 09/01/2020: Reported as: Stable chronic appearing changes. No obvious acute consolidation. No effusion. Labs: 09/01/2020: BMP: Sodium 141, potassium 3.5, chloride 105, bicarbonate 28, BUN 41, creatinine 2.58, GFR 25.7, Troponin 0.3 [trending down] Triglycerides 94, total cholesterol 102, LDL 45, HDL 38. Blood cultures no growth after 24 hours. Assessment and plan: 80-year-old male patient with PMH as above presented to the emergency department on 08/30/2020 with gradual worsening of shortness of breath on exertion, nonproductive cough, and bilateral pedal edema which has been gradually progre ssing since 2 weeks. Patient was admitted to the hospital on 08/31/2020 for further management. Cardiology was consulted given the extensive cardiac history [CAD, status post CABG and stents, atrial fibrillation failed ablation and on chronic anticoagulation]. Patient was already started on IV Lasix 40 mg every 8 hours and continued his home anticoagulation for atrial fibrillation on admission. Patient was seen today and I did not see any pedal edema today, patient does have diminished breath sounds but no crackles appreciated. Patient likely had an acute exacerbation of CHF due to noncompliance with his diet and medications will continue Lasix IV 40 mg every 8 hours for now. Even though scott ent has not been in negative fluid balance his symptoms seems to be improved likely due to the redistribution of the fluid with restricted salt intake and Lasix. Given his creatinine levels will be cautious in giving more diuretics for this patient. Patient's elevated troponin might likely be due to stress on the cardiac muscle which is gradually trending down given the diuresis or due to ischemia having said that he does not have any EKG changes suggesting NV. He would be a candidate for outpatient stress testing. In the morning telemetry showed atrial fibrillation with rate controlled and he does have frequent PVCs [patient is asymptomatic]. Will continue his anticoagulation with Eliquis and Coreg for rate control. As patient spends half of the year in [place] prior to leaving to [place] he was in sinus rhythm and is on amiodarone, Eliquis and furosemide 20 mg. Seeing his home medications now I don't see amiodarone and see he is taking furosemide 40 mg will try to obtain more records from [place] to see what changed. Rest of the management as per the primary team. VS,Francoise, I+O VS, Hectorbone, I+O Laboratory Tests 09/01/20 05:52 Vital Signs Date Time Temp Pulse Resp B/P (MAP) Pulse Ox O2 Delivery O2 Flow Rate FiO2 09/01/20 08:42 97.5 82 18 149/82 (104) 96 Room Air 09/01/20 06:00 1.0 I&O- Last 24 Hours up to 6 AM 09/01/20 06:00 Intake Total 1600 ml Output Total 1320 ml Balance 280 ml Taylor Friedman MD September 01, 2020 11:43
--- NOTE | 2020-09-01 12:37 | IPN ---
PROGRESS NOTE DATE: 09/01/2020 SUBJECTIVE: The patient still complains of paroxysmal nocturnal dyspnea, three pillow orthopnea, still short of breath this morning. He has not diuresed well overnight, remains in positive balance but no change in weight. The patient's telemetry shows a regular rhythm, ventricular rate of 52-82. He denies any chest pain, pressure, or tightness. He says that he sees a devulcanizer operator in [place] and sees Dr. Adamson of cardiology here in [place]. Afebrile. No complaints of cough, nausea or vomiting, epigastric pain, headaches, or changes in vision. Denies any dizziness or lightheadedness. OBJECTIVE: VITAL SIGNS: Temperature 97.5, pulse 82, irregularly irregular. Atrial fibrillation on telemetry. Respiratory rate 18, blood pressure 149/82, 96% on room air. GENERAL: Generally the patient is awake, alert, and oriented to person, place, and time. Answering questions appropriately. He has mild conversational dyspnea but comfortable, saying about six words, has to stop and take a breath after a few words. He has no tracheal deviation, no intercostal retractions, no other use of respiratory accessory muscles. HEENT: Positive JVD. No thyromegaly or cervical lymphadenopathy. Moist mucous membranes. No carotid bruits. No stridor. LUNGS: Diminished, bilateral crackles. HEART: S1, S2, irregularly irregular, bradycardic. ABDOMEN: Obese, soft, nontender, nondistended. Positive bowel sounds. EXTREMITIES: 2+ pitting edema. Echocardiogram performed on 08/31/2020 shows ejection fraction of 40-45%, tricuspid aortic valve, trace mitral regurgitation, akinesis of the mid anteroseptal mid anterior segments, akinesis of the left ventricular apex. LABORATORY DATA: CBC, metabolic panel have been reviewed. Notable for a creatinine of 2.58, GFR 25.7, stage IV renal failure. Troponin is 0.30. IMAGING STUDIES: Repeat chest x-ray 09/01 showed stable chronic changes, no consolidation, no effusion. Input and output: Input 1540 yesterday, 870 output, positive 670. Admission weight was 100.6 kg. Current weight 100.2 kg. Since midnight input of 500, output of 850, negative 350. ASSESSMENT AND PLAN: This is a 80-year-old admitted on 08/31/2020 with a history of coronary artery disease, anterior wall CO, systolic congestive heart failure, ejection fraction of 45-50%, insulin dependent diabetes, hypertension, rate-controlled chronic atrial fibrillation, stage IV chronic kidney disease, reflux and Crohn's disease, admitted due to worsening shortness of breath, found to be in decompensated congestive heart failure. CURRENT ISSUES: 1. [id number] combined systolic and diastolic congestive heart failure exacerbation. The patient remains in the PCU under telemetry. Fluid restriction, strict inputs and outputs, daily weights. 2. Chronic kidney disease stage IV. Chief Development Officer has been consulted due to worsening renal failure. 3. Troponin leak most likely due to congestive heart failure. The patient does have a history of coronary artery disease and prior anterior wall myocardial infarction. Lending Manager Dr. Adamson has been consulted. He has been resumed on his home medications aspirin, Coreg. 4. History of COPD on chronic Symbicort, not an acute exacerbation. 5. Type-2 diabetes on Levemir Insulin sliding scale, consistent carbohydrate diet. Glucose levels are ranging from 105 to 256. We will increase Levemir Insulin to 72 units once daily at bedtime with holding parameters. 6. Chronic insomnia, on trazodone. 7. BPH, on Flomax. 8. Constipation, on bowel regimen. MTDD
--- NOTE | 2020-09-01 17:17 | ECGEPIP ---
[facility] Test Date: 2020-09-01 Pat Name: JAY HOUSE Department: Room: [place] [address] Gender: Male Revenue Director: shona : 1940 Requested By: Kathi Mendes Order Number: [id number] Reading MD: Ludwig Zuleta Measurements Intervals [place] Rate: 71 P: MT: QRS: -36 QRSD: 108 T: 135 QT: 478 QTc: 519 Interpretive Statements Atrial fibrillation with conttrolled ventricular response and premature ventricular or aberrantly conducted complexes Left axis deviation Septal infarct , age undetermined Prolonged QT Compared to prior tracing of 08/31/2020, ventricular response is slower Electronically Signed on 09-01-2020 17:17:04 EDT by Ludwig Zuleta
[2020-09-01] MEDS: GABAPENTIN 300 MG CAP PO SCH (20:55)
[2020-09-01] MEDS: ASPIRIN 81MG ENTERIC TABLET PO SCH (20:55)
[2020-09-01] MEDS: TAMSULOSIN 0.4 MG CAP PO SCH (20:55)
[2020-09-01] MEDS: CETIRIZINE (ZyrTEC) 10 MG TAB PO SCH (20:55)
[2020-09-01] MEDS: LEVEMIR (INSULIN DETEMIR) 1 UNITS/0.01ML SC SCH (20:57)
[2020-09-02] MEDS ORDERED: POTASSIUM CHLORIDE 10 MEQ SR TABLET PO ONE (00:15)
[2020-09-02] MEDS: FUROSEMIDE 40MG/4ML VIAL (J1940) IV SCH ×2 (01:00→08:01)
[2020-09-02] MEDS: ACETAMINOPHEN TAB 650MG DOSE (2X325MG) PO PRN ×2 (01:03→05:21)
[2020-09-02] MEDS: traZODone 25MG PER 1/2 TABLET PO PRN ×2 (01:03→21:18)
[2020-09-02 04:57] VITALS: O2SAT 88
[2020-09-02 06:00] VITALS: BP 121/61
--- NOTE | 2020-09-02 07:12 | CR ---
CONSULTATION DATE: 09/01/2020 REQUESTING PHYSICIAN: Alize Beaver MD CONSULTING PHYSICIAN: Carole Morales DO REASON FOR CONSULTATION: CKD stage 4 and decompensated systolic congestive heart failure. HISTORY OF PRESENT ILLNESS: Mr. Richey is previously unknown to me. He is a 80-year-old male with a past medical history of CKD stage 4 (who recently established with a business liaison manager in [place] but does not see any business liaison manager here in the [facility]), also has past medical history of coronary artery disease with history of myocardial infarction, status post CABG, longstanding insulin-dependent diabetes mellitus type 2, systolic congestive heart failure, Crohn's disease, BPH, ulcerative colitis, hypertension, history of PVCs, history of atrial fibrillation on chronic anticoagulation, sleep apnea and other comorbid conditions mentioned below. The patient presented to the emergency room on August 31 with complaint of worsening shortness of breath and dyspnea with exertion and complaints of fluid buildup in the legs. The patient was admitted and found to have initial BNP of 4000 with renal function stable at his usual baseline and he was started on IV Lasix and nephrology evaluation was requested for help in the management of his diuresis. PAST MEDICAL HISTORY: 1. Combined systolic and diastolic congestive heart failure, left ventricular ejection fraction 40%. 2. CKD stage 4. 3. Coronary artery disease. 4. Insulin dependent diabetes mellitus. 5. Crohn's disease. 6. GERD. 7. Gout. 8. BPH. 9. Ulcerative colitis. 10. Fatty liver. 11. Hypertension. 12. Atrial fibrillation. 13. Premature ventricular contraction. 14. Bronchiectasis. 15. Sleep apnea. 16. Osteochondroma. 17. Dyslipidemia. 18. History of urinary retention. 19. History of nephrolithiasis. PAST SURGICAL HISTORY: 1. Cataract surgery. 2. CABG. 3. Cardiac ablation. 4. Colonoscopy. 5. Prostate biopsy. ALLERGIES: NAPROXEN, SIMVASTATIN. HOME MEDICATIONS: 1. Albuterol. 2. Allopurinol. 3. Eliquis 5 mg p.o. b.i.d. 4. Aspirin 81 mg p.o. q.h.s. 5. Atorvastatin 40 mg Saturday, Saturday, Saturday. 6. Symbicort two puffs inhaled b.i.d. 7. Carvedilol 3.125 mg p.o. b.i.d. 8. Zyrtec 10 mg p.o. q.h.s. 9. Vitamin D3 2000 units p.o. daily. 10. Colchicine p.r.n. 11. Lasix 40 mg p.o. daily. 12. Gabapentin 300 mg p.o. q.h.s. 13. Lantus 70 units subcu q.h.s. 14. Magnesium 400 mg p.o. daily. 15. Multivitamin one daily. 16. Percocet p.r.n. 17. Flomax 0.4 mg p.o. q.h.s. SOCIAL HISTORY: He is an ex-smoker, reports social alcohol, no drug use. FAMILY HISTORY: Significant for heart disease and diabetes. REVIEW OF SYSTEMS: Constitutional: Denies fevers or chills. Eyes: Denies visual changes or tearing or blurring. ENT: Denies headaches, epistaxis, rhinorrhea. Cardiac: He has a history of congestive heart failure, reports leg swelling and dyspnea with exertion. Respiratory: Reports history of sleep apnea and shortness of breath. Denies home oxygen use. Gastrointestinal: Denies nausea, vomiting or diarrhea. Genitourinary: He has a history of urinary retention and a history of nephrolithiasis. Hematologic: Reports chronic anticoagulant use, denies anemia. Endocrine: Reports insulin dependent diabetes mellitus. Neurologic: Denies seizure, syncope. Psychiatric: Denies anxiety or depression. Musculoskeletal: Reports a history of gout and reports recent leg swelling. Remainder of review of systems is negative or per HPI. PHYSICAL EXAMINATION: Vital signs: Temperature 97.4, pulse 51, respiratory rate 18, blood pressure 131/62, saturating 96% on room air. Weight in the bed scale today is 91.5 kg. General: The patient is seen lying in bed, elderly male, alert and oriented x3, comfortable in apparent distress. Extraocular muscles are intact. Tongue is moist. Neck is supple. Jugular veins were mildly elevated. Heart sounds have irregular beat. Atrial flutter on telemetry and frequent PVCs. Lungs show fairly good air movement without rales or wheeze but breath sounds are diminished at the bases. Abdomen is soft, obese and nontender. Genitourinary: Bladder is not palpable. Extremities show 1+ pitting edema. Neurologic: He is oriented x3 at baseline mentation. IMAGING: Echocardiogram shows ejection fraction of 40-45%. Chest x-ray done today shows no consolidation, no effusion. CT, chest on August 30 shows no pleural effusion and no signs of consolidation or edema. Venous duplex of the legs shows no DVT. LABORATORY DATA: Blood cultures show no growth for 48 hours. Respiratory viral panel is negative. INPATIENT MEDICATIONS: 1. Tylenol p.r.n. 2. Albuterol p.r.n. 3. Eliquis 5 mg p.o. b.i.d. 4. Aspirin 81 mg p.o. q.h.s. 5. Symbicort two puffs inhaled b.i.d. 6. Coreg 3.125 mg p.o. b.i.d. 7. Zyrtec 10 mg p.o. q.h.s. 8. Docusate 100 mg p.o. b.i.d. 9. Lasix 40 mg IV q.8. Five doses have been given. 10. Gabapentin 300 mg p.o. q.h.s. 11. Insulin. 12. Flomax 0.4 mg p.o. q.h.s. 13. Trazodone p.r.n. 14. Vitamin D 2000 units p.o. daily. PROBLEMS: 1. CKD stage 4. Prior labs are reviewed. His baseline GFR appears to be 20 to at best 30 mL per minute. The patient tells me he recently established with a business liaison manager in [place] but does not see any business liaison manager in the [facility] area. In [place], he was also told that he has CKD stage 4. His renal function is stable and he is tolerating diuresis well. He has a depressed ejection fraction but he is not suitable for LEATHA ARB/Entresto. 2. History of urinary retention. The patient has a history of prior urinary retention requiring Rebolledo catheter. He presently seems to be at his baseline renal function I will want to get imaging to exclude any sort of urinary retention or obstructive uropathy. 3. Decompensated combined systolic and diastolic congestive heart failure. Echocardiogram noted. The patient's lung imaging does not really show any pulmonary edema nor any pleural effusion. He is saturating well on room air. I do not feel that he really needs a great deal of aggressive diuresis. We will mildly increase the Lasix to 60 mg IV q.8 hourly and we will see how he does. He also has a history of COPD but does not seem to be in any sort of exacerbation. 4. BPH on Flomax with history of urinary retention as mentioned above that did require Rebolledo catheter last year. We will get renal ultrasound. 5. Secondary hyperparathyroidism of renal origin. I will get a PTH level. His calcium and phosphorus are acceptable. 6. Atrial fibrillation. He is anticoagulated with Eliquis and rate controlled with carvedilol. He is having frequent PVCs. His potassium is on the low side and I will give him potassium supplementation and we also check a magnesium level. 7. Hypokalemia. Potassium supplementation is ordered.
[2020-09-02] MEDS: SYMBICORT 160/4.5MCG INHALER 6GM INH SCH ×2 (07:22→19:36)
--- NOTE | 2020-09-02 07:31 | REPVR ---
PROCEDURE INFORMATION: Exam: US Retroperitoneal Limited, Kidneys Exam date and time: 09/02/2020 6:49 AM Age: 80 years old Clinical indication: Abnormal findings; Abnormal lab test; Abnormal function test of other organs/systems; Additional info: Ckd 4 TECHNIQUE: Imaging protocol: Real-time ultrasound of the retroperitoneum with image documentation. Examination was focused on the kidneys. COMPARISON: RENAL US 10/16/2019 3:47 PM FINDINGS: Right kidney: Right renal cortical atrophy. Left kidney: Left renal cortical atrophy. Bladder: Ureteral jets are not visualized. Prostate: Enlarged prostate. IMPRESSION: Mild bilateral renal cortical atrophy. Hydronephrosis. Enlarged prostate. Electronically signed by: Dileep Sauceda On 09/02/2020 07:31:16 AM
[2020-09-02] MEDS: CARVedilol 3.125 MG TAB PO SCH ×2 (08:01→21:18)
[2020-09-02] MEDS: HumaLOG INSULIN (NovoLOG) PER UNIT SC SCH ×4 (08:01→21:20)
[2020-09-02] MEDS: APIXABAN 5 MG TAB (ELIQUIS) PO SCH ×2 (08:02→21:19)
[2020-09-02] MEDS: VITAMIN D 1,000 INTERNATIONAL UNITS TABLET PO SCH (08:02)
[2020-09-02] MEDS: DOCUSATE SODIUM 100MG CAPSULE PO SCH ×2 (08:02→21:18)
--- NOTE | 2020-09-02 11:13 | IPN ---
PROGRESS NOTE DATE: 09/02/2020 SUBJECTIVE: The patient says that he is less short of breath. He diuresed 1.625 liters yesterday, negative 25 mL overnight. Weight currently is 91.5 kg from admission weight of 100.6 kg. The patient denies any chest pain, pressure, tightness, lightheadedness or dizziness. He denies any thirst. OBJECTIVE: PHYSICAL EXAMINATION: VITAL SIGNS: Temperature 98, pulse 52, respiratory rate 12, blood pressure 125/65, oxygen saturation 91% on room air. GENERAL APPEARANCE: Awake, alert, oriented to person, place and time, answering questions appropriately. HEENT: No icterus. NECK: No tracheal deviation. LUNGS: No use of respiratory accessory muscles. No stridor. He speaks in full sentences without conversational dyspnea. Lungs are diminished but clear to auscultation. No wheezing or rales. HEART: S1, S2, irregularly irregular and bradycardic. ABDOMEN: Obese, soft, nontender, nondistended. EXTREMITIES: 2+ pitting edema bilateral lower extremities. LABORATORY STUDIES: CBC, metabolic panel, cardiac markers, microbiology have been reviewed. IMAGING STUDIES: Reviewed. ASSESSMENT AND PLAN: This is a 80-year-old full code with a past medical history significant for combined systolic and diastolic heart failure, ejection fraction of 40-45%, coronary artery disease, anterior wall myocardial infarction, diabetes, hypertension, chronic atrial fibrillation, stage 4 chronic kidney disease, Crohn's disease, reflux, admitted due to worsening shortness of breath, found to have decompensated congestive heart failure. IMPRESSION: 1. [id number] combined systolic diastolic congestive heart failure exacerbation - This patient is on fluid restriction. Strict I.'s and O.'s, daily weights. Weight has decreased significantly from admission of 104 kg. Nephrology consulted for fluid management and diuresis. 2. Chronic kidney disease stage 4 fluid management per Nephrology. 3. History of coronary artery disease anterior wall myocardial infarction with abnormal cardiac markers. Cardiology, Dr. Adamson has been consulted. 4. Home medications with holding parameters. 5. Chronic obstructive pulmonary disease on chronic Symbicort, compensated. 6. Type 2 diabetes on Levemir insulin sliding scale. Hypoglycemic protocol and fingersticks. Levemir insulin has been increased to 72 units daily at bedtime. 7. Chronic insomnia on Trazodone. 8. Benign prostatic hypertrophy on Flomax. 9. Chronic constipation The patient has a bowel regimen.
[2020-09-02 12:15] LABS: HEMATOCRIT 34.2 % (42.0-52.0); HEMOGLOBIN 11.5 g/dl (13.5-17.5); MEAN CORPUSCULAR HEMOGLOBIN 31.9 pg (27.0-33.0); MEAN CORPUSCULAR HGB CONC 33.6 g/dl (32.0-36.5); WHITE BLOOD COUNT 4.6 10^3/uL (4.0-10.0)
[2020-09-02 12:31] LABS: CALCIUM LEVEL 8.6 MG/DL (8.8-10.2); CREATININE FOR GFR 2.54 MG/DL (0.70-1.30); GLOMERULAR FILTRATION RATE 26.2 (>42); MAGNESIUM LEVEL 1.7 MG/DL (1.8-2.4); POTASSIUM SERUM 3.7 MEQ/L (3.5-5.1)
[2020-09-02 12:35] LABS: PLATELET COUNT, AUTOMATED 99 10^3/uL (150-450)
[2020-09-02 13:39] VITALS: BP 122/65
[2020-09-02] MEDS: guaiFENesin/CODEINE SYRUP 5 ML UDC PO PRN (13:56)
--- NOTE | 2020-09-02 15:56 | IPN ---
PROGRESS NOTE DATE: 09/02/2020 SUBJECTIVE: Patient seen and examined sitting out of bed to the chair. He reports his breathing feels very comfortable now. He is no longer short of breath. He inquires about discharge planning. His renal ultrasound was read as hydronephrosis, but I think it was possibly a gas station cashier error. quality technician is going to see if it can be re-read. The patient's postvoid residual bladder scan was less than 200 mL. Temperature 97.8, pulse 68, respiratory rate 16, blood pressure 122/65, saturating 96% on room air. Review of intake and output yesterday shows equivalent fluid balance. Weight in the bed scale was not recorded today. GENERAL: Patient seen awake, alert, oriented, sitting out of bed to the chair. Extraocular muscles are intact. Tongue is moist. Neck is supple. Jugular veins were not elevated while he was sitting upright. HEART: Sounds are fairly regular with occasional irregular beat. LUNGS: Show good air movement bilaterally. No crackle or rales. ABDOMEN: Soft and nontender. I cannot appreciate any bladder fullness. EXTREMITIES: Show trace edema in the right lower extremity and no edema in the left lower extremity. NEUROLOGIC: He is oriented times three at baseline mentation. SKIN: Warm and dry. Normal turgor. IMAGING: Echocardiogram shows ejection fraction of 40%-45%. He had a renal ultrasound, which shows mild bilateral cortical atrophy of both kidneys and enlarged prostate, and hydronephrosis is also written at the end, but I think it was likely a gas station cashier error. site damage prevention technician is going to look into that for me. INPATIENT MEDICATIONS: I stopped the intravenous (IV) Lasix, and I switched the patient to torsemide 20 mg by mouth twice a day. I gave a dose of potassium chloride 40 mEq by mouth times one and started him on potassium chloride 10 mEq by mouth daily. Also ordered a dose of metolazone 1.25 mg by mouth times one. PROBLEMS: 1. Chronic kidney disease (CKD), stage IV. Prior labs reviewed. Baseline GFR is 20-30 mL per minute. He recently established with caption writer in [place], but he does not have any local caption writer up here. His renal function is stable. He was not aggressively diuresed on this hospitalization, but he tells me that his dyspnea has resolved. He is saturating well on room air. He is not suitable for angiotensin-converting enzyme (LEATHA), angiotensin-receptor jamel (ARB), or Entresto because of advanced renal dysfunction. His renal ultrasound was read as bilateral cortical atrophy along with "hydronephrosis." I think the "hydronephrosis" may be a misread, and ophthalmic technician is looking into it for me. 2. History of urinary retention. He has a prior history of urinary retention requiring Rebolledo catheter, but his postvoid residual bladder scan today was less than 200 mL. He is on Flomax. We are getting a re-read on his renal ultrasound, as I do not think he has hydronephrosis at present. 3. Combined systolic and diastolic congestive heart failure. Left ventricular ejection fraction (40%-45%). His lung imaging did not show any pulmonary edema nor pleural effusion. He is saturating well on room air. He did not require aggressive diuresis. He looks fairly compensated from a volume point of view. I switched him over to oral diuretic, torsemide 20 mg by mouth twice a day. At home he was previously taking Lasix 40 mg once a day. He is also going to get a small dose of metolazone today. 4. Hypokalemia. He is getting potassium supplementation. 5. Secondary hyperparathyroidism of renal origin. Parathyroid hormone (PTH) is fairly acceptable at 130. He continues on vitamin D. 6. Hypertension. Blood pressures are well controlled. He is now on an oral diuretic regimen of torsemide. He continues also on carvedilol. DISPOSITION: Patient is now on an oral diuretic regimen. He is saturating well on room air. His renal function is stable. I anticipate that he will be able to go home likely tomorrow.
[2020-09-02] MEDS ORDERED: metOLazone 2.5 MG TAB PO ONE (16:00)
[2020-09-02] MEDS: POTASSIUM CHLORIDE 10 MEQ SR TABLET PO SCH (17:29)
[2020-09-02] MEDS: TORSEMIDE 20 MG TAB PO SCH (17:29)
[2020-09-02] MEDS: ASPIRIN 81MG ENTERIC TABLET PO SCH (21:17)
[2020-09-02] MEDS: TAMSULOSIN 0.4 MG CAP PO SCH (21:19)
[2020-09-02] MEDS: LEVEMIR (INSULIN DETEMIR) 1 UNITS/0.01ML SC SCH (21:19)
[2020-09-02] MEDS: GABAPENTIN 300 MG CAP PO SCH (21:19)
[2020-09-02] MEDS: CETIRIZINE (ZyrTEC) 10 MG TAB PO SCH (21:19)
[2020-09-02 22:00] VITALS: BP 119/77
[2020-09-03 05:54] VITALS: O2SAT 93
[2020-09-03 06:00] VITALS: BP 116/60
[2020-09-03] MEDS: SYMBICORT 160/4.5MCG INHALER 6GM INH SCH (07:24)
[2020-09-03] MEDS ORDERED: TORS20TA2 PO (08:18)
[2020-09-03] MEDS: HumaLOG INSULIN (NovoLOG) PER UNIT SC SCH ×3 (08:19→17:32)
[2020-09-03] MEDS: VITAMIN D 1,000 INTERNATIONAL UNITS TABLET PO SCH (08:19)
[2020-09-03 08:20] VITALS: BP 115/61
[2020-09-03] MEDS: DOCUSATE SODIUM 100MG CAPSULE PO SCH (08:20)
[2020-09-03] MEDS: POTASSIUM CHLORIDE 10 MEQ SR TABLET PO SCH (08:20)
[2020-09-03] MEDS: TORSEMIDE 20 MG TAB PO SCH ×2 (08:20→17:40)
[2020-09-03] MEDS: APIXABAN 5 MG TAB (ELIQUIS) PO SCH (08:20)
[2020-09-03] MEDS: CARVedilol 3.125 MG TAB PO SCH (08:20)
--- NOTE | 2020-09-03 10:44 | DSES ---
DISCHARGE SUMMARY DATE OF ADMISSION: 08/31/2020 DATE OF DISCHARGE: 09/03/2020 CHEMICAL ENGINEERING TECHNICIAN(S) DURING THIS ADMISSION: Dross Puller, Carole Morales D.O. PRIMARY DISCHARGE DIAGNOSES: 1. Acute on chronic combined systolic and diastolic congestive heart failure with left ventricular ejection fraction of 40% to 45%. Not suitable for angiotensin converting enzyme inhibitor (LEATHA), angiotensin receptor jamel (ARB), or Entresto due to advanced renal dysfunction. 2. Chronic kidney disease stage IV. 3. History of urinary retention. Previously required Rebolledo catheter. 4. Hypokalemia. 5. Secondary hyperparathyroidism of renal origin. 6. Hypertension. 7. Chronic obstructive pulmonary disease (COPD). 8. Type 2 diabetes. 9. Chronic insomnia. 10. BPH. 11. History of coronary artery disease (CAD), anterior wall myocardial infarction (NC). 12. History of Crohn's disease. 13. Gastroesophageal reflux disease. 14. Chronic atrial fibrillation (AFib) on anticoagulation. DISCHARGE MEDICATIONS: 1. Torsemide 20 b.i.d. 2. Apixaban 5 b.i.d. 3. Aspirin 81 q. h.s. 4. Allopurinol 100 b.i.d. 5. Albuterol as needed. 6. Atorvastatin 40 mg three times weekly. 7. Symbicort two puffs inhaled b.i.d. 8. Coreg 3.125 b.i.d. 9. Cetirizine 10 q. h.s. 10. Vitamin D 2000 units daily. 11. Cholchicine 0.6 daily as needed. 12. Tamsulosin 0.4. 13. Tacrolimus topically b.i.d. 14. Percocet one tablet q. 6 as needed. 15. Nitroglycerin as needed. 16. Multivitamin one tablet daily. 17. Magnesium 400 daily. 18. Ipratropium bromide b.i.d. for nasal congestion. 19. Lantus insulin 70 units. 20. Gabapentin 300 q. h.s. HOSPITAL COURSE: This is a 80-year-old male admitted on 08/31/2020, due to complaint of shortness of breath and wet cough. The patient was found to be in decompensated congestive heart failure with chronic kidney disease stage IV. BNP was 4078. Troponin leak was noted due to CHF. The patient was kept on his amiodarone for AFib and was rate controlled and continues on his oral anticoagulation. Venous Dopplers bilateral lower extremities were negative for DVT. Chest CT showed congestive heart failure (CHF). Renal ultrasound showed mild hydronephrosis. Nephrology was consulted for help in diuresis. During the first 48 hours, the patient remained in positive balance. He was then placed on Lasix 40 IV q. 8 with no result. Then nephrology recommended Lasix IV drip with good diuresis and remained net negative balance for three days. Discharge weight was 96.1 with admission weight of 100.6 kg and resultant resolution of his shortness of breath with repeat chest x-ray on 09/01/2020, showing no effusion, chronic changes, no obvious acute consolidation. The patient is stable at discharge to follow-up with Dr. Morales as an outpatient. He was started on torsemide 20 b.i.d. and appeared to be as euvolemic as possible. DISCHARGE PHYSICAL EXAMINATION: VITAL SIGNS: Temperature 97.6, pulse 78, respiratory rate 18, blood pressure 116/60, 93% on room air. HEENT: No pallor or icterus. No use of respectively accessory muscles. No cervical lymphadenopathy or carotid bruit. NECK: No JVD. No thyromegaly. LUNGS: Clear to auscultation with no wheezing, rales, or rhonchi. HEART: S1, S2. Sinus rhythm. ABDOMEN: Obese, soft, nontender, and nondistended. EXTREMITIES: Chronic trace to 1+ pitting edema. LABORATORY DATA: White count 4.6, hemoglobin 11, hematocrit 34, platelet count 99, admission platelet count of 105,000. Sodium 140, potassium 3.7, chloride 103, bicarb 30, BUN 40, creatinine 2.5, glucose of 273. Respiratory panel negative. Time spent on discharge 30 minutes.
[2020-09-03 14:00] VITALS: BP 108/69
[2020-09-03] MEDS ORDERED: GUAI1SOL7 PO (17:01)
--- NOTE | 2020-09-03 18:07 | IPN ---
PROGRESS NOTE DATE: 09/03/2020 Mr. Richey is seen this morning on his bedside. He is feeling better and reports good appetite. He denies any nausea, vomiting, dyspnea, or chest pain. He was admitted with shortness of breath. A renal ultrasound showed bilateral cortical atrophy, but there was no hydronephrosis; however, there was an error in the report. In the meantime, patient had a postvoid residual of only 200 mL, and he has been diuresing. PHYSICAL EXAMINATION: Temperature 97.6 degrees Fahrenheit, heart rate 78 per minute, respiratory rate 18 per minute, blood pressure 115/60 mmHg, and oxygen saturation 93% on room air. Head is atraumatic. Neck supple and without jugular venous distention (JVD) or thyroid enlargement. Heart sounds are irregular in rhythm, and lungs sound clear to auscultation today . Abdomen soft, and nontender, and bowel sounds are normal. Extremities without any cyanosis or clubbing. Neurologically he is awake, alert, and oriented times three. The patient did not have any chemistry done today. Yesterday's labs have been reviewed, and yesterday his BUN was 40 and creatinine 2.54, which is close to the baseline. Hemoglobin was 11.5 and hematocrit 34.2. PROBLEMS: 1. Congestive heart failure. Volume status seems clinically well compensated. He is currently on torsemide 20 mg twice a day, which should be continued. I will not give him any additional diuretic today. 2. Hypertension and atrial fibrillation. His heart rate is well controlled, and blood pressure is also well controlled on current dose of beta jamel, and he is also on Eliquis 5 mg twice a day. 3. Acute on chronic kidney disease. Kidney function has been relatively stable without any significant change. Today there was no lab drawn, and I am ordering a renal profile for tomorrow. He did have bilateral cortical atrophy on the renal ultrasound but no significant postvoid residual. At present we will continue to monitor his renal profile closely, and there is no emergent indication for dialysis. 4. Anemia. His anemia is mild and stable. No intervention is needed at present. DISPOSITION: From a renal standpoint, patient can be discharged to home either today or tomorrow. He can be followed up as an outpatient, and he should followup in our outpatient clinic for his advanced chronic kidney disease.
== END 2020-09-03 18:06 | disposition home or self-care (01) | DRG 291 ==
LOC: M ED 21:09 → M ED INP 08-31 04:07 → ENRESERV 08-31 04:16 → M PCU 08-31 04:50 → M MSPAV 09-01 16:49
PROVIDERS: ADMIT Family Medicine; ATTEND General Practice
DX: I13.0 Hypertensive heart and chronic kidney disease with heart failure and stage 1 through stage 4 chronic kidney disease, or unspecified chronic kidney disease (principal); I50.43 Acute on chronic combined systolic (congestive) and diastolic (congestive) heart failure; N18.4 Chronic kidney disease, stage 4 (severe); K50.90 Crohn's disease, unspecified, without complications; N25.81 Secondary hyperparathyroidism of renal origin; K21.9 Gastro-esophageal reflux disease without esophagitis; I25.2 Old myocardial infarction; E11.22 Type 2 diabetes mellitus with diabetic chronic kidney disease; I25.10 Atherosclerotic heart disease of native coronary artery without angina pectoris; M10.9 Gout, unspecified; N40.0 Benign prostatic hyperplasia without lower urinary tract symptoms; G47.33 Obstructive sleep apnea (adult) (pediatric); J44.9 Chronic obstructive pulmonary disease, unspecified; K76.0 Fatty (change of) liver, not elsewhere classified; E87.6 Hypokalemia; K59.00 Constipation, unspecified; M54.9 Dorsalgia, unspecified; G47.00 Insomnia, unspecified; I48.91 Unspecified atrial fibrillation; Z95.5 Presence of coronary angioplasty implant and graft; Z98.41 Cataract extraction status, right eye; Z98.42 Cataract extraction status, left eye; Z87.891 Personal history of nicotine dependence; Z91.14 Patient's other noncompliance with medication regimen; Z91.19 Patient's noncompliance with other medical treatment and regimen; Z79.01 Long term (current) use of anticoagulants; Z79.82 Long term (current) use of aspirin; Z79.899 Other long term (current) drug therapy; Z88.6 Allergy status to analgesic agent; Z88.8 Allergy status to other drugs, medicaments and biological substances

== ENCOUNTER → 2020-09-20 | Outpatient (REF) | payer MEDICARE, OTHER ==
[~2020-09-20] MED LIST changes: +ALLO100T PO; +ATOR40TA75 PO; +COLC0.6T47 PO; +GUAI1SOL7 PO; +NITR4TASL SL; +OXYC1TAB23 PO; +TORS20TA2 PO
[2020-09-20 18:02] LABS: TOTAL PROTEIN 6.7 GM/DL (6.4-8.2)
[2020-09-21 13:25] LABS: ALBUMIN 3.93 GM/DL (3.29-5.55); ALBUMIN % 58.7 % (55.8-66.1); ALPHA-2-GLOBULINS % 10.7 % (7.1-11.8); BETA-2-GLOBULINS % 5.9 % (3.2-6.5); GAMMA GLOBULIN % 13.7 % (11.1-18.8)
[2020-09-21 13:26] LABS: ALPHA-1-GLOBULINS 0.34 GM/DL (0.17-0.41); ALPHA-2-GLOBULINS 0.72 GM/DL (0.42-0.99); GAMMA GLOBULINS 0.92 GM/DL (0.65-1.58)
== END ==
LOC: M LAB REF 16:55
PROVIDERS: ATTEND Internal Medicine Nephrology
DX: R80.9 Proteinuria, unspecified (principal)

== ENCOUNTER → 2020-09-21 | Outpatient (REF) | payer MEDICARE, OTHER ==
[2020-09-21 23:50] LABS: APPEARANCE, URINE TURBID (CLEAR); BACTERIA, URINE AUTO NEGATIVE (NEGATIVE); BILIRUBIN, URINE AUTO NEGATIVE (NEGATIVE); BLOOD, URINE BLOOD 3+ (NEGATIVE); COLOR, URINE YELLOW (YELLOW); GLUCOSE, URINE (UA) AUTO NEGATIVE (NEGATIVE); KETONE, URINE AUTO NEGATIVE (NEGATIVE); LEUKOCYTE ESTERASE, URINE AUTO 3+ (NEGATIVE); NITRITE, URINE AUTO NEGATIVE (NEGATIVE); PROTEIN, URINE AUTO 3+ mg/dL (NEGATIVE); RBC, URINE AUTO TNTC /HPF (0-3); SPECIFIC GRAVITY URINE AUTO 1.015 (1.002-1.035); SQUAMOUS EPITHELIAL CELL UR AU 0 /HPF (0-6); UROBILINOGEN, URINE AUTO 0.2 mg/dL (0.0-2.0); WBC, URINE AUTO TNTC /HPF (0-3)
== END ==
LOC: M LAB 23:25
PROVIDERS: ATTEND Physician Assistant
DX: N39.0 Urinary tract infection, site not specified (principal)

== ENCOUNTER → 2020-09-26 | Outpatient (CLI) | payer MEDICARE, OTHER ==
--- NOTE | 2020-09-26 15:32 | REP ---
INDICATION: RETENTION OF URINE. COMPARISON: None. TECHNIQUE: Transvesical imaging FINDINGS: The prevoid urinary bladder volume calculation is 112.1 cc and the postvoid calculation is 21.9 cc. This renders a 19% postvoid residual. Seen in the urinary bladder floor there is an echogenic focus which measures 8 mm casting an acoustic shadow. There are no gross urinary bladder wall masses. Doppler of the UV junction filled to identify uro jet phenomena on either side. IMPRESSION: There is evidence of a cystolith as described above. Previous CT of the abdomen and noncontrast enhanced examination of 10/17/2019 did show at least 1 calcification within the urinary bladder. Other findings as described above. <Electronically signed by Greg Valerio > 09/26/20 [id number]
== END ==
LOC: M RAD 14:42
PROVIDERS: ATTEND Internal Medicine Nephrology
DX: R39.9 Unspecified symptoms and signs involving the genitourinary system (principal)

== ENCOUNTER → 2020-10-05 | Outpatient (REF) | payer MEDICARE, OTHER ==
[2020-10-05 13:36] LABS: HEMOGLOBIN 11.9 g/dl (13.5-17.5); MEAN CORPUSCULAR HEMOGLOBIN 31.6 pg (27.0-33.0); MEAN CORPUSCULAR HGB CONC 33.1 g/dl (32.0-36.5); MEAN CORPUSCULAR VOLUME 95.5 fl (80.0-96.0); PLATELET COUNT, AUTOMATED 115 10^3/uL (150-450); RED BLOOD COUNT 3.77 10^6/uL (4.30-6.10); WHITE BLOOD COUNT 6.2 10^3/uL (4.0-10.0)
[2020-10-05 13:49] LABS: APPEARANCE, URINE CLEAR (CLEAR); BACTERIA, URINE AUTO NEGATIVE (NEGATIVE); BILIRUBIN, URINE AUTO NEGATIVE (NEGATIVE); BLOOD, URINE BLOOD NEGATIVE (NEGATIVE); COLOR, URINE YELLOW (YELLOW); GLUCOSE, URINE (UA) AUTO NEGATIVE (NEGATIVE); KETONE, URINE AUTO NEGATIVE (NEGATIVE); LEUKOCYTE ESTERASE, URINE AUTO NEGATIVE (NEGATIVE); MUCUS, URINE SMALL (NEGATIVE); NITRITE, URINE AUTO NEGATIVE (NEGATIVE); PROTEIN, URINE AUTO NEGATIVE (NEGATIVE); RBC, URINE AUTO 0 /HPF (0-3); SPECIFIC GRAVITY URINE AUTO 1.011 (1.002-1.035); SQUAMOUS EPITHELIAL CELL UR AU 0 /HPF (0-6); UROBILINOGEN, URINE AUTO 0.2 mg/dL (0.0-2.0); WBC, URINE AUTO 2 /HPF (0-3)
[2020-10-05 13:53] LABS: HEMOGLOBIN A1c 7.8 %
[2020-10-05 14:20] LABS: ALBUMIN 3.7 GM/DL (3.2-5.2); BILIRUBIN,TOTAL 0.8 MG/DL (0.2-1.0); CALCIUM LEVEL 8.6 MG/DL (8.8-10.2); CHOLESTEROL RISK RATIO 4.324 (<5); CREATININE FOR GFR 4.29 MG/DL (0.70-1.30); FREE T4 1.19 NG/DL (0.76-1.46); GLOMERULAR FILTRATION RATE 14.3 (>42); POTASSIUM SERUM 3.8 MEQ/L (3.5-5.1); THYROID STIMULATING HORMONE 1.88 uIU/ML (0.358-3.740); TOTAL PROTEIN 6.8 GM/DL (6.4-8.2)
== END ==
LOC: M SFHCADAM 10:04
PROVIDERS: ATTEND Family Medicine
DX: N39.0 Urinary tract infection, site not specified (principal); E11.40 Type 2 diabetes mellitus with diabetic neuropathy, unspecified; I48.0 Paroxysmal atrial fibrillation; I25.810 Atherosclerosis of coronary artery bypass graft(s) without angina pectoris; D63.1 Anemia in chronic kidney disease; E78.5 Hyperlipidemia, unspecified
CPT/HCPCS: 80053; 80061; 81001; 83036; 84439; 84443; 85027; 87086; G0463

== ENCOUNTER → 2020-10-13 | Outpatient (REF) | payer MEDICARE, OTHER | LOC: M LAB REF 16:54 | PROVIDERS: ATTEND Internal Medicine Nephrology | DX: E83.42 Hypomagnesemia (principal) ==

== ENCOUNTER → 2020-10-20 | Outpatient (CLI) | payer MEDICARE, OTHER ==
[2020-10-24 14:08] LABS: PSA % FREE 29.7 % (.); PSA FREE 2.08 ng/mL
== END ==
LOC: M PLALAB 15:08
PROVIDERS: ATTEND Nurse Practitioner Family
DX: R97.20 Elevated prostate specific antigen [PSA] (principal)
CPT/HCPCS: 36415; 84154; G0463

== ENCOUNTER → 2020-11-23 | Outpatient (CLI) | payer MEDICARE, OTHER ==
[~2020-11-23] MED LIST changes: +ALBU8.5H; +FURO40TA2
== END ==
LOC: M LABSMTC 11:27
PROVIDERS: ATTEND Anesthesiology
DX: Z01.818 Encounter for other preprocedural examination (principal); Z11.52 Encounter for screening for COVID-19

== ENCOUNTER → 2020-11-23 | Outpatient (CLI) | payer MEDICARE, OTHER ==
[~2020-11-23] MED LIST changes: +TRIA1OI80 TOP
[2020-11-23 13:34] LABS: APPEARANCE, URINE CLEAR (CLEAR); BACTERIA, URINE AUTO NEGATIVE (NEGATIVE); BILIRUBIN, URINE AUTO NEGATIVE (NEGATIVE); BLOOD, URINE BLOOD NEGATIVE (NEGATIVE); COLOR, URINE YELLOW (YELLOW); GLUCOSE, URINE (UA) AUTO NEGATIVE (NEGATIVE); KETONE, URINE AUTO NEGATIVE (NEGATIVE); LEUKOCYTE ESTERASE, URINE AUTO NEGATIVE (NEGATIVE); NITRITE, URINE AUTO NEGATIVE (NEGATIVE); PROTEIN, URINE AUTO NEGATIVE (NEGATIVE); RBC, URINE AUTO 1 /HPF (0-3); SQUAMOUS EPITHELIAL CELL UR AU 0 /HPF (0-6); UROBILINOGEN, URINE AUTO 0.2 mg/dL (0.0-2.0); WBC, URINE AUTO 1 /HPF (0-3)
[2020-11-23 13:36] LABS: HEMATOCRIT 36.6 % (42.0-52.0); MEAN CORPUSCULAR HEMOGLOBIN 31.8 pg (27.0-33.0); MEAN CORPUSCULAR HGB CONC 32.8 g/dl (32.0-36.5); MEAN CORPUSCULAR VOLUME 97.1 fl (80.0-96.0); RED BLOOD COUNT 3.77 10^6/uL (4.30-6.10); WHITE BLOOD COUNT 3.9 10^3/uL (4.0-10.0)
[2020-11-23 13:38] LABS: PLATELET COUNT, AUTOMATED 89 10^3/uL (150-450)
[2020-11-23 13:57] LABS: CALCIUM LEVEL 8.7 MG/DL (8.8-10.2); CREATININE FOR GFR 3.41 MG/DL (0.70-1.30); GLOMERULAR FILTRATION RATE 18.6 (>42); POTASSIUM SERUM 4.1 MEQ/L (3.5-5.1)
[2020-11-23 14:15] LABS: INR 1.01; PROTHROMBIN TIME 13.7 SECONDS (12.7-14.5)
[2020-11-23 14:16] LABS: PARTIAL THROMBOPLASTIN TIME 30.1 SECONDS (25.9-37.0)
== END ==
LOC: M WUC 11:47
PROVIDERS: ATTEND Urology
DX: Z01.818 Encounter for other preprocedural examination (principal); N21.0 Calculus in bladder; E07.9 Disorder of thyroid, unspecified; Z79.01 Long term (current) use of anticoagulants; Z11.52 Encounter for screening for COVID-19
CPT/HCPCS: 36415; 80048; 81001; 84443; 85027; 85049; 85055; 85610; 85730; 87086; U0003

== ENCOUNTER 2020-11-28 06:09 | Day surgery (SDC) | payer MEDICARE, OTHER ==
[~2020-11-28] VITALS: Ht 182.9 cm; Wt 94.3 kg
[~2020-11-28 06:09] MED LIST changes: +EMLA CREAM 5GM TUBE (LIDOCAINE/PRILOCAINE) TOP PRN; +LIDOCAINE 1% MDV 20ML VIAL SQ PRN; +LR 1,000 ML IV ONE
[2020-11-28] MEDS ORDERED: CIPROFLOXACIN 400 MG in IV 1 EA IV ONE (07:05)
[2020-11-28] MEDS ORDERED: propofoL 200 MG/20 ML VIAL As Ordered ONE (07:52)
[2020-11-28] MEDS ORDERED: ACETAMINOPHEN 1000MG 100ML IV BTL (OFIRMEV) (J0131 PER 10MG) As Ordered ONE (07:52)
[2020-11-28] MEDS ORDERED: dexameTHASONE 4 MG/ML 1ML VIAL (J1100 PER 1MG) As Ordered ONE (07:52)
[2020-11-28] MEDS ORDERED: LIDOCAINE 2% 100MG/5ML SDV (FOR ANES.) As Ordered ONE (07:52)
[2020-11-28] MEDS ORDERED: fentaNYL 100 MCG/2 ML INJECTION (J3010) As Ordered ONE (07:52)
[2020-11-28] MEDS ORDERED: MIDAZOLAM INJ 2MG/2ML VIAL (J2250 PER 1MG) As Ordered ONE (07:52)
[2020-11-28] MEDS ORDERED: ONDANSETRON 4MG/2ML VIAL As Ordered ONE (07:52)
[2020-11-28] MEDS ORDERED: ETOMIDATE INJ 20MG/10ML VIAL As Ordered ONE (07:52)
[2020-11-28] MEDS ORDERED: METOCLOPRAMIDE INJ 10MG/2ML VIAL (J2765 PER 1) As Ordered ONE (07:52)
--- NOTE | 2020-11-28 07:59 | ROOPDOC ---
[facility] Report Of Operation Report of Operation DATE OF PROCEDURE: 11/28/20 PREPROCEDURE DIAGNOSES: [bladder stone]. POSTPROCEDURE DIAGNOSES: [same]. PROCEDURE PERFORMED: [cysto with removal of bladder stone via irrigation]. SURGEON: [Rody Rodriguez], SEWING MACHINE OPERATOR ZIPPER: [none], ANESTHESIA: [general]. ESTIMATED BLOOD LOSS: Approximately [0] mL. COMPLICATIONS: [none]. REMARKS: [80yo wm with bladder stone. Surgery arranged to remove. Informed consent obtained. Risks discussed including infection, pain, bleeding, scarring, failure of surgery, need for more surgery, injury to gu tract and others.]. FINDINGS: SPECIMENS REMOVED: [bladder stone] PROCEDURE NOTE: . DESCRIPTION OF PROCEDURE: [Met with pt in preop area and surgery discussed. Questions answered. Informed consent obtained. Chart and imaging reviewed. Pt brought to OR room. General anesthesia secured. Dorsal litho position. Well padded. Prep'd and draped in sterile fashion. Time out performed. Surgery done under IV Cipro. Rigid cystoscopy performed. No stricture. Significant bph with visual obstruction. Small stone found in bladder. Stone passed through cystoscope sheath with irrigation. No other stone found. Pt tolerated all well and left room in satisfactory condition. Home today. No new medications.]. JEREMIAH RODRIGUEZ MD Nov 28, 2020 07:59
[2020-11-28] MEDS ORDERED: oxyCODONE 5MG TAB PO PRN (08:20)
[2020-11-28] MEDS ORDERED: LR 1,000 ML IV SCH ×2 (08:20)
[2020-11-28] MEDS ORDERED: ONDANSETRON 4MG/2ML VIAL IV PRN (08:20)
[2020-11-28] MEDS ORDERED: fentaNYL 100 MCG/2 ML INJECTION (J3010) IV PRN (08:20)
[2020-11-28 09:06] VITALS: BP 135/63
== END 2020-11-28 09:31 | disposition home or self-care (01) ==
LOC: M SDC 06:09
PROVIDERS: ATTEND Urology
DX: N21.0 Calculus in bladder (principal); I25.10 Atherosclerotic heart disease of native coronary artery without angina pectoris; E11.9 Type 2 diabetes mellitus without complications; I25.2 Old myocardial infarction; G47.33 Obstructive sleep apnea (adult) (pediatric); I10 Essential (primary) hypertension; M51.36 Other intervertebral disc degeneration, lumbar region; E78.5 Hyperlipidemia, unspecified; K50.90 Crohn's disease, unspecified, without complications; E55.9 Vitamin D deficiency, unspecified; M13.80 Other specified arthritis, unspecified site; J44.9 Chronic obstructive pulmonary disease, unspecified; K21.9 Gastro-esophageal reflux disease without esophagitis; Z95.5 Presence of coronary angioplasty implant and graft; Z88.0 Allergy status to penicillin; Z88.8 Allergy status to other drugs, medicaments and biological substances; Z79.82 Long term (current) use of aspirin; Z79.51 Long term (current) use of inhaled steroids; Z79.899 Other long term (current) drug therapy
CPT/HCPCS: 52310; 82365; 88300; J0131; J0744; J1100; J2250; J2405; J2765; J3010

== ENCOUNTER 2020-11-29 12:49 | Emergency (ER) | payer MEDICARE, OTHER ==
[~2020-11-29] VITALS: Ht 182.9 cm; Wt 95.9 kg
[~2020-11-29 12:49] MED LIST changes: -EMLA CREAM 5GM TUBE (LIDOCAINE/PRILOCAINE) TOP PRN; -LIDOCAINE 1% MDV 20ML VIAL SQ PRN; -LR 1,000 ML IV ONE
[2020-11-29] MEDS ORDERED: LIDOCAINE 2% 5ML JELLY UROJET TOP ONE ×2 (13:30→14:20)
[2020-11-29] MEDS ORDERED: PERCOCET 5MG/325MG TAB PO ONE (13:40)
[2020-11-29 15:56] VITALS: BP 122/63
== END 2020-11-29 16:20 | disposition home or self-care (01) ==
LOC: M ED 12:49
DX: R33.9 Retention of urine, unspecified (principal); R31.9 Hematuria, unspecified; E55.9 Vitamin D deficiency, unspecified; K76.0 Fatty (change of) liver, not elsewhere classified; J44.9 Chronic obstructive pulmonary disease, unspecified; N40.1 Benign prostatic hyperplasia with lower urinary tract symptoms; I25.10 Atherosclerotic heart disease of native coronary artery without angina pectoris; I25.2 Old myocardial infarction; E11.9 Type 2 diabetes mellitus without complications; I10 Essential (primary) hypertension; N18.5 Chronic kidney disease, stage 5; K50.919 Crohn's disease, unspecified, with unspecified complications; K52.9 Noninfective gastroenteritis and colitis, unspecified; Z95.5 Presence of coronary angioplasty implant and graft; Z95.1 Presence of aortocoronary bypass graft; Z87.891 Personal history of nicotine dependence; Z79.01 Long term (current) use of anticoagulants; Z79.4 Long term (current) use of insulin; Z79.899 Other long term (current) drug therapy; Z88.0 Allergy status to penicillin; Z88.8 Allergy status to other drugs, medicaments and biological substances; Z88.6 Allergy status to analgesic agent

== ENCOUNTER 2020-11-30 21:02 | Emergency (ER) | payer MEDICARE, OTHER ==
[~2020-11-30] VITALS: Ht 182.9 cm; Wt 94.1 kg
[2020-12-01] MEDS ORDERED: LIDOCAINE 2% 5ML JELLY UROJET TOP ONE (01:45)
[2020-12-01] MEDS ORDERED: PERCOCET 5MG/325MG TAB PO ONE (01:45)
[2020-12-01] MEDS ORDERED: oxyBUTYnin 5 MG TAB PO STA (02:39)
[2020-12-01] MEDS ORDERED: OXYB10TA23 PO (02:47)
[2020-12-01 02:50] VITALS: BP 152/89
== END 2020-12-01 03:39 | disposition home or self-care (01) ==
LOC: M ED 21:02
DX: K94.09 Other complications of colostomy (principal); N18.4 Chronic kidney disease, stage 4 (severe); I25.2 Old myocardial infarction; K50.90 Crohn's disease, unspecified, without complications; Z86.718 Personal history of other venous thrombosis and embolism; Z87.442 Personal history of urinary calculi; Z88.0 Allergy status to penicillin; Z88.8 Allergy status to other drugs, medicaments and biological substances; Z79.899 Other long term (current) drug therapy; Z79.82 Long term (current) use of aspirin; Z79.4 Long term (current) use of insulin; Z79.01 Long term (current) use of anticoagulants

== ENCOUNTER → 2021-01-02 | Outpatient (CLI) | payer MEDICARE, OTHER ==
[~2021-01-02] MED LIST changes: +OXYB10TA23 PO
[2021-01-02 17:55] LABS: CALCIUM LEVEL 8.6 MG/DL (8.8-10.2); CREATININE FOR GFR 3.4 MG/DL (0.70-1.30); GLOMERULAR FILTRATION RATE 18.7 (>42); POTASSIUM SERUM 4.6 MEQ/L (3.5-5.1)
== END ==
LOC: M WUC 14:19
PROVIDERS: ATTEND Internal Medicine Cardiovascular Disease
DX: I48.0 Paroxysmal atrial fibrillation (principal)

== ENCOUNTER 2021-02-02 22:40 | Emergency (ER) | payer MEDICARE, OTHER ==
[~2021-02-02] VITALS: Ht 182.9 cm; Wt 100.0 kg
[2021-02-02] MEDS ORDERED: LIDOCAINE 2% 5ML JELLY UROJET TOP ONE (23:40)
[2021-02-03 01:30] VITALS: BP 144/67
== END 2021-02-03 01:30 | disposition home or self-care (01) ==
LOC: M ED 22:40
DX: R33.9 Retention of urine, unspecified (principal); I12.9 Hypertensive chronic kidney disease with stage 1 through stage 4 chronic kidney disease, or unspecified chronic kidney disease; N18.4 Chronic kidney disease, stage 4 (severe); J44.9 Chronic obstructive pulmonary disease, unspecified; N40.1 Benign prostatic hyperplasia with lower urinary tract symptoms; K50.90 Crohn's disease, unspecified, without complications; I48.91 Unspecified atrial fibrillation; Z95.1 Presence of aortocoronary bypass graft; Z95.5 Presence of coronary angioplasty implant and graft; Z79.899 Other long term (current) drug therapy; Z79.82 Long term (current) use of aspirin; Z79.4 Long term (current) use of insulin; Z79.01 Long term (current) use of anticoagulants; Z88.0 Allergy status to penicillin; Z88.8 Allergy status to other drugs, medicaments and biological substances

== ENCOUNTER → 2021-09-19 | Outpatient (REF) | payer MEDICARE, OTHER ==
[~2021-09-19] MED LIST changes: -AMIO200T3 PO; +AMIO200T49 PO; -D31000TA2 PO; +VITA100093 PO
[2021-09-19 18:20] LABS: APPEARANCE, URINE CLEAR (CLEAR); BACTERIA, URINE AUTO NEGATIVE (NEGATIVE); BILIRUBIN, URINE AUTO NEGATIVE (NEGATIVE); BLOOD, URINE BLOOD NEGATIVE (NEGATIVE); COLOR, URINE YELLOW (YELLOW); GLUCOSE, URINE (UA) AUTO NEGATIVE (NEGATIVE); KETONE, URINE AUTO NEGATIVE (NEGATIVE); LEUKOCYTE ESTERASE, URINE AUTO NEGATIVE (NEGATIVE); MUCUS, URINE SMALL (NEGATIVE); NITRITE, URINE AUTO NEGATIVE (NEGATIVE); PROTEIN, URINE AUTO NEGATIVE (NEGATIVE); RBC, URINE AUTO 0 /HPF (0-3); SPECIFIC GRAVITY URINE AUTO 1.011 (1.002-1.035); SQUAMOUS EPITHELIAL CELL UR AU 0 /HPF (0-6); UROBILINOGEN, URINE AUTO 0.2 mg/dL (0.0-2.0); WBC, URINE AUTO 1 /HPF (0-3)
[2021-09-19 18:23] LABS: HEMATOCRIT 34.5 % (42.0-52.0); HEMOGLOBIN 11.8 g/dl (13.5-17.5); MEAN CORPUSCULAR HEMOGLOBIN 32.6 pg (27.0-33.0); MEAN CORPUSCULAR HGB CONC 34.2 g/dl (32.0-36.5); MEAN CORPUSCULAR VOLUME 95.3 fl (80.0-96.0); RED BLOOD COUNT 3.62 10^6/uL (4.30-6.10); WHITE BLOOD COUNT 4.7 10^3/uL (4.0-10.0)
[2021-09-19 18:46] LABS: ALBUMIN 3.5 GM/DL (3.2-5.2); CALCIUM LEVEL 8.4 MG/DL (8.8-10.2); CREATININE FOR GFR 3.13 MG/DL (0.70-1.30); GLOMERULAR FILTRATION RATE 20.5 (>35); PHOSPHORUS LEVEL 3.1 MG/DL (2.5-4.9); POTASSIUM SERUM 4.6 MEQ/L (3.5-5.1); URIC ACID 5.2 MG/DL (3.5-7.2)
[2021-09-19 18:58] LABS: PTH INTACT 128.5 PG/ML (18.5-88.0)
[2021-09-19 19:16] LABS: PLATELET COUNT, AUTOMATED 93 10^3/uL (150-450)
== END ==
LOC: M LABDRWAD 17:02
PROVIDERS: ATTEND Internal Medicine Nephrology
DX: M1A.30X0 Chronic gout due to renal impairment, unspecified site, without tophus (tophi) (principal); N25.81 Secondary hyperparathyroidism of renal origin; N18.4 Chronic kidney disease, stage 4 (severe); D63.1 Anemia in chronic kidney disease

== ENCOUNTER → 2021-09-19 | Outpatient (REF) | payer MEDICARE, OTHER ==
[2021-09-19 18:49] LABS: ALBUMIN 3.5 GM/DL (3.2-5.2); BILIRUBIN,TOTAL 0.8 MG/DL (0.2-1.0); CALCIUM LEVEL 8.5 MG/DL (8.8-10.2); CREATININE FOR GFR 3.08 MG/DL (0.70-1.30); GLOMERULAR FILTRATION RATE 20.9 (>35); POTASSIUM SERUM 4.5 MEQ/L (3.5-5.1); TOTAL PROTEIN 6.4 GM/DL (6.4-8.2)
[2021-09-19 19:32] LABS: HEMOGLOBIN A1c 7.2 %
== END ==
LOC: M SFHCADAM 15:34
PROVIDERS: ATTEND Family Medicine
DX: I11.9 Hypertensive heart disease without heart failure (principal); E11.40 Type 2 diabetes mellitus with diabetic neuropathy, unspecified

== ENCOUNTER → 2021-09-19 | Outpatient (REF) | payer MEDICARE, OTHER ==
[2021-09-21 20:08] LABS: PSA TOTAL 3.3 ng/mL (0.0-4.0)
== END ==
LOC: M SMT 18:10
PROVIDERS: ATTEND Urology
DX: M1A.30X0 Chronic gout due to renal impairment, unspecified site, without tophus (tophi) (principal); R97.20 Elevated prostate specific antigen [PSA]; N25.81 Secondary hyperparathyroidism of renal origin; N18.4 Chronic kidney disease, stage 4 (severe); D63.1 Anemia in chronic kidney disease; I11.9 Hypertensive heart disease without heart failure; E11.40 Type 2 diabetes mellitus with diabetic neuropathy, unspecified

== ENCOUNTER → 2021-11-14 | Outpatient (REF) | payer MEDICARE, OTHER | LOC: M SFHCADAM 16:06 | PROVIDERS: ATTEND Family Medicine | DX: M51.36 Other intervertebral disc degeneration, lumbar region (principal); F11.20 Opioid dependence, uncomplicated ==

== ENCOUNTER → 2021-12-19 | Outpatient (REF) | payer MEDICARE, OTHER ==
[2021-12-19 13:18] LABS: HEMATOCRIT 33.4 % (42.0-52.0); MEAN CORPUSCULAR HEMOGLOBIN 31.2 pg (27.0-33.0); MEAN CORPUSCULAR HGB CONC 32.9 g/dl (32.0-36.5); MEAN CORPUSCULAR VOLUME 94.6 fl (80.0-96.0); PLATELET COUNT, AUTOMATED 105 10^3/uL (150-450); RED BLOOD COUNT 3.53 10^6/uL (4.30-6.10); WHITE BLOOD COUNT 6.1 10^3/uL (4.0-10.0)
[2021-12-19 13:43] LABS: HEMOGLOBIN A1c 6.6 %
[2021-12-19 14:19] LABS: ALBUMIN 3.4 GM/DL (3.2-5.2); BILIRUBIN,TOTAL 0.6 MG/DL (0.2-1.0); CALCIUM LEVEL 8.8 MG/DL (8.8-10.2); CHOLESTEROL RISK RATIO 3.512 (<5); CREATININE FOR GFR 2.59 MG/DL (0.70-1.30); FREE T4 1.51 NG/DL (0.76-1.46); GLOMERULAR FILTRATION RATE 25.5 (>35); POTASSIUM SERUM 3.5 MEQ/L (3.5-5.1); THYROID STIMULATING HORMONE 0.006 uIU/ML (0.358-3.740); TOTAL PROTEIN 6.4 GM/DL (6.4-8.2)
== END ==
LOC: M SFHCADAM 07:53
PROVIDERS: ATTEND Family Medicine
DX: N62 Hypertrophy of breast (principal); I48.0 Paroxysmal atrial fibrillation; I25.810 Atherosclerosis of coronary artery bypass graft(s) without angina pectoris; N18.9 Chronic kidney disease, unspecified; E11.40 Type 2 diabetes mellitus with diabetic neuropathy, unspecified; I25.9 Chronic ischemic heart disease, unspecified

== ENCOUNTER → 2022-01-26 | Outpatient (CLI) | payer MEDICARE, OTHER | LOC: M CARPUL 13:16 | PROVIDERS: ATTEND Nurse Practitioner Family | DX: I50.42 Chronic combined systolic (congestive) and diastolic (congestive) heart failure (principal) ==

== ENCOUNTER → 2022-01-31 | Outpatient (CLI) | payer MEDICARE, OTHER ==
[2022-01-31 18:46] LABS: FREE T3 2.6 PG/ML (2.2-4.0); FREE T4 1.14 NG/DL (0.76-1.46); THYROID STIMULATING HORMONE 0.054 uIU/ML (0.358-3.740)
== END ==
LOC: M LABDRWAD 11:33
PROVIDERS: ATTEND Family Medicine
DX: E03.2 Hypothyroidism due to medicaments and other exogenous substances (principal)

== ENCOUNTER → 2022-08-21 | Outpatient (REF) | payer MEDICARE, OTHER | LOC: M LAB REF 12:28 | PROVIDERS: ATTEND Internal Medicine | DX: I50.9 Heart failure, unspecified (principal) ==

== ENCOUNTER 2022-11-20 19:55 | Observation (INO) | payer MEDICARE, OTHER ==
[~2022-11-20] VITALS: Ht 167.6 cm; Wt 100.0 kg
[2022-11-20 21:20] LABS: VENOUS BASE EXCESS 0.1 (-2.0-2.0); VENOUS HCO3 25.6 MMOL/L (23.0-27.0); VENOUS O2 SATURATION 65.7 % (60.0-80.0); VENOUS PARTIAL PRESSURE CO2 44.5 mmHg (38.0-50.0); VENOUS PARTIAL PRESSURE O2 34.1 mmHg (30.0-50.0); VENOUS PH 7.377 UNITS (7.330-7.430); VENOUS STANDARD HCO3 23.9 MMOL/L; VENOUS TOTAL CO2 26.9 MMOL/L (24.0-28.0)
[2022-11-20 21:35] LABS: BASO % 0.3 % (0.0-1.0); EOS % 1.3 % (0.0-3.0); HEMATOCRIT 36.5 % (42.0-52.0); HEMOGLOBIN 12.4 g/dl (13.5-17.5); LYMPH # 0.8 10^3/uL (1.5-5.0); LYMPH % 27.5 % (24.0-44.0); MEAN CORPUSCULAR VOLUME 94.3 fl (80.0-96.0); MONO # 0.3 10^3/uL (0.0-0.8); MONO % 11.1 % (2.0-8.0); NEUTROPHILS # 1.8 10^3/uL (1.5-8.5); NEUTROPHILS % 59.1 % (36.0-66.0); RED BLOOD COUNT 3.87 10^6/uL (4.30-6.10)
[2022-11-20 21:49] LABS: MB/CK RELATIVE INDEX 0.71 (< OR =4)
[2022-11-20 21:50] LABS: CALCIUM LEVEL 8.5 MG/DL (8.3-10.6); CREATININE FOR GFR 3.09 MG/DL (0.70-1.30); GLOMERULAR FILTRATION RATE 20.8 (>35); POTASSIUM SERUM 3.9 MMOL/L (3.5-5.1)
[2022-11-20 21:54] LABS: INR 1.13; PROTHROMBIN TIME 14.2 SECONDS (12.5-14.5)
[2022-11-20 22:14] LABS: PLATELET COUNT, AUTOMATED 71 10^3/uL (150-450)
[2022-11-21 00:16] LABS: CK-MB VALUE MASS < 1.0 NG/ML (<3.6); CPK CREATINE PHOSPHOKINASE 135 U/L (46-171); MB/CK RELATIVE INDEX 0.74 (< OR =4)
[2022-11-21] MEDS ORDERED: MED REC IN PROGRESS XX SCH (00:35)
[2022-11-21] MEDS ORDERED: CHOL50003 PO (01:18)
[2022-11-21] MEDS ORDERED: CYAN-1 PO (01:18)
[2022-11-21] MEDS ORDERED: FINA5TAB2 PO (01:18)
[2022-11-21] MEDS ORDERED: ALLO300T2 PO (01:18)
[2022-11-21] MEDS ORDERED: OXYC7.5T3 PO (01:18)
[2022-11-21] MEDS ORDERED: METO1TAB32 PO (01:18)
[2022-11-21] MEDS ORDERED: IPRA0.00 INH (01:18)
[2022-11-21] MEDS ORDERED: POTA-150 PO (01:18)
[2022-11-21] MEDS ORDERED: ALBU8.5H INH (01:18)
[2022-11-21] MEDS ORDERED: TORS20TA2 PO (01:18)
[2022-11-21] MEDS ORDERED: ALBUTEROL 90 MCG/ACT 8GM HFA INHALER INH PRN (03:25)
[2022-11-21] MEDS ORDERED: NITROGLYCERIN 0.4MG SUBL TABLET SL PRN (03:25)
[2022-11-21] MEDS ORDERED: IPRATROPIUM 0.5MG/ALBUTEROL 2.5MG INH SOL UD 3ML (DUONEB) INH PRN (03:25)
[2022-11-21 03:30] LABS: PROCALCITONIN 0.09 ng/ml
[2022-11-21] MEDS ORDERED: DEXTROSE 50% 50ML SYRINGE IV PRN (03:40)
[2022-11-21] MEDS ORDERED: GLUCOSE 4GM CHEW TABLET PO PRN (03:40)
[2022-11-21] MEDS ORDERED: GLUCAGON INJ 1MG VIAL SC PRN (03:40)
[2022-11-21] MEDS ORDERED: DOXYCYCLINE HYCLATE 100 MG in D5W MINI-BAG PLUS 100 ML IV SCH (04:00)
[2022-11-21] MEDS ORDERED: REMDESIVIR 200 MG in NS 250 ML IV ONE (05:00)
[2022-11-21 05:22] LABS: BASO % 0.7 % (0.0-1.0); EOS % 1.4 % (0.0-3.0); HEMATOCRIT 32.6 % (42.0-52.0); HEMOGLOBIN 10.8 g/dl (13.5-17.5); LYMPH # 0.9 10^3/uL (1.5-5.0); LYMPH % 32.9 % (24.0-44.0); MEAN CORPUSCULAR HEMOGLOBIN 31.6 pg (27.0-33.0); MEAN CORPUSCULAR HGB CONC 33.1 g/dl (32.0-36.5); MEAN CORPUSCULAR VOLUME 95.3 fl (80.0-96.0); MONO # 0.4 10^3/uL (0.0-0.8); MONO % 14.1 % (2.0-8.0); NEUTROPHILS # 1.4 10^3/uL (1.5-8.5); NEUTROPHILS % 50.2 % (36.0-66.0); RED BLOOD COUNT 3.42 10^6/uL (4.30-6.10); WHITE BLOOD COUNT 2.8 10^3/uL (4.0-10.0)
[2022-11-21 05:30] LABS: PLATELET COUNT, AUTOMATED 62 10^3/uL (150-450)
[2022-11-21 05:31] LABS: ALBUMIN 3.2 G/DL (3.2-5.2); BILIRUBIN,TOTAL 0.7 MG/DL (0.3-1.2); CALCIUM LEVEL 8.2 MG/DL (8.3-10.6); CREATININE FOR GFR 2.98 MG/DL (0.70-1.30); GLOMERULAR FILTRATION RATE 21.7 (>35); MAGNESIUM LEVEL 2.1 MG/DL (1.8-2.4); POTASSIUM SERUM 3.6 MMOL/L (3.5-5.1); TOTAL PROTEIN 5.9 G/DL (5.7-8.2)
[2022-11-21 05:51] LABS: HEMOGLOBIN A1c 8.4 % (4.0-6.0)
[2022-11-21 06:00] VITALS: BP 120/65
[2022-11-21 06:12] VITALS: TEMP 99.2; O2SAT 99
[2022-11-21] MEDS ORDERED: ZOLP5TAB PO (06:26)
[2022-11-21] MEDS ORDERED: INSULIN LISPRO (NovoLOG) PER UNIT SC SCH ×2 (07:30→21:00)
[2022-11-21] MEDS ORDERED: SYMBICORT 160/4.5MCG INHALER 6GM INH SCH (08:00)
[2022-11-21] MEDS ORDERED: cefTRIAXone SOD 1 GM in D5W MINI-BAG PLUS 50 ML IV SCH (08:00)
[2022-11-21] MEDS ORDERED: HOME MED LIST COMPLETE! XX SCH (08:10)
[2022-11-21] MEDS ORDERED: GABAPENTIN 300 MG CAP PO SCH ×2 (09:00→21:00)
[2022-11-21] MEDS ORDERED: METOPROLOL SUCC *XL* 25MG TAB (TopROL *XL*) PO SCH (09:00)
[2022-11-21] MEDS ORDERED: allopurinoL 300 MG TAB PO SCH (09:00)
[2022-11-21] MEDS ORDERED: APIXABAN 5 MG TAB (ELIQUIS) PO SCH (09:00)
[2022-11-21] MEDS ORDERED: APIXABAN 2.5 MG TAB (ELIQUIS) PO SCH (09:00)
[2022-11-21] MEDS ORDERED: FINASTERIDE 5MG TAB PO SCH (09:00)
[2022-11-21] MEDS ORDERED: PRED20TA PO ×2 (09:56→10:39)
[2022-11-21 10:04] VITALS: BP 120/65
[2022-11-21] MEDS ORDERED: CETIRIZINE (ZyrTEC) 10 MG TAB PO SCH (21:00)
[2022-11-21] MEDS ORDERED: LEVEMIR (INSULIN DETEMIR) 1 UNITS/0.01ML SC SCH (21:00)
[2022-11-21] MEDS ORDERED: TAMSULOSIN 0.4 MG CAP PO SCH (21:00)
[2022-11-22] MEDS ORDERED: REMDESIVIR 100 MG in NS 250 ML IV SCH (05:00)
== END 2022-11-21 12:35 | disposition home or self-care (01) ==
LOC: M ED 19:55 → INTOOBSV 11-21 01:22 → M ED INP 11-21 01:22
PROVIDERS: ADMIT Family Medicine; ATTEND Family Medicine
DX: U07.1 COVID-19 (principal); J20.9 Acute bronchitis, unspecified; J47.1 Bronchiectasis with (acute) exacerbation; R53.1 Weakness; I48.0 Paroxysmal atrial fibrillation; Z98.890 Other specified postprocedural states; K52.9 Noninfective gastroenteritis and colitis, unspecified; E11.22 Type 2 diabetes mellitus with diabetic chronic kidney disease; K76.0 Fatty (change of) liver, not elsewhere classified; I13.0 Hypertensive heart and chronic kidney disease with heart failure and stage 1 through stage 4 chronic kidney disease, or unspecified chronic kidney disease; I50.9 Heart failure, unspecified; K21.9 Gastro-esophageal reflux disease without esophagitis; N40.1 Benign prostatic hyperplasia with lower urinary tract symptoms; G47.33 Obstructive sleep apnea (adult) (pediatric); D61.818 Other pancytopenia; E55.9 Vitamin D deficiency, unspecified; I25.10 Atherosclerotic heart disease of native coronary artery without angina pectoris; M10.9 Gout, unspecified; J30.9 Allergic rhinitis, unspecified; N18.4 Chronic kidney disease, stage 4 (severe); E78.5 Hyperlipidemia, unspecified; Z95.1 Presence of aortocoronary bypass graft; Z95.5 Presence of coronary angioplasty implant and graft; Z88.0 Allergy status to penicillin; Z88.8 Allergy status to other drugs, medicaments and biological substances; Z79.899 Other long term (current) drug therapy; Z79.01 Long term (current) use of anticoagulants; Z79.51 Long term (current) use of inhaled steroids; Z79.4 Long term (current) use of insulin; Z79.52 Long term (current) use of systemic steroids
CPT/HCPCS: 71046; 80048; 80053; 82550; 82553; 82803; 83036; 83605; 83735; 83880; 84145; 84484; 85025; 85049; 85055; 85610; 87040; 87486; 87581; 87633; 87798; 93005; 94010; 94640; 96374; 96375; 97161; 97530; 99285; G0378; J0248; J1100; J1815

== ENCOUNTER 2022-12-02 03:37 | Inpatient (IN) | payer MEDICARE, OTHER ==
[~2022-12-02] VITALS: Ht 182.9 cm; Wt 88.5 kg
[~2022-12-02 03:37] MED LIST changes: +ALBU8.5H INH; +ALLO300T2 PO; +CHOL50003 PO; +CYAN-1 PO; +IPRA0.00 INH; +METO1TAB32 PO; +OXYC7.5T3 PO; +POTA-150 PO; +PRED20TA PO
[2022-12-02 04:35] LABS: CK-MB VALUE MASS < 1.0 NG/ML (<3.6)
[2022-12-02 04:37] LABS: ALKALINE PHOSPHATASE 92 U/L (46-116); ALT/SGPT 15 U/L (7.0-40); AST/SGOT 21 U/L (<34); BILIRUBIN,DIRECT 0.3 MG/DL (<0.4); BILIRUBIN,TOTAL 0.8 MG/DL (0.3-1.2); BLOOD UREA NITROGEN 36 MG/DL (9-23); CALCIUM LEVEL 8.3 MG/DL (8.3-10.6); CARBON DIOXIDE LEVEL 24 MMOL/L (20-31); CHLORIDE LEVEL 100 MMOL/L (98-107); CPK CREATINE PHOSPHOKINASE 62 U/L (46-171); CREATININE FOR GFR 2.34 MG/DL (0.70-1.30); GLOMERULAR FILTRATION RATE 28.6 (>35); GLUCOSE, FASTING 331 MG/DL (74-106); MB/CK RELATIVE INDEX 1.61 (< OR =4); POTASSIUM SERUM 3.9 MMOL/L (3.5-5.1); SODIUM LEVEL 134 MMOL/L (136-145); TOTAL PROTEIN 6.4 G/DL (5.7-8.2)
[2022-12-02 04:38] LABS: BASO % 0.2 % (0.0-1.0); EOS % 0.5 % (0.0-3.0); HEMATOCRIT 36.4 % (42.0-52.0); HEMOGLOBIN 12.4 g/dl (13.5-17.5); LYMPH # 0.6 10^3/uL (1.5-5.0); LYMPH % 11.6 % (24.0-44.0); MEAN CORPUSCULAR HEMOGLOBIN 31.5 pg (27.0-33.0); MEAN CORPUSCULAR HGB CONC 34.1 g/dl (32.0-36.5); MEAN CORPUSCULAR VOLUME 92.4 fl (80.0-96.0); MONO # 0.2 10^3/uL (0.0-0.8); MONO % 2.7 % (2.0-8.0); NEUTROPHILS # 4.6 10^3/uL (1.5-8.5); NEUTROPHILS % 84.1 % (36.0-66.0); RED BLOOD COUNT 3.94 10^6/uL (4.30-6.10); WHITE BLOOD COUNT 5.5 10^3/uL (4.0-10.0)
[2022-12-02 04:39] LABS: THYROID STIMULATING HORMONE 4.196 uIU/ML (0.55-4.78)
[2022-12-02 04:40] LABS: ABG BASE EXCESS -2.1 (-2.0-2.0); ABG O2 SATURATION 97.5 % (95.0-99.0); ABG PARTIAL PRESSURE CO2 35.2 mmHg (35.0-45.0); ABG PARTIAL PRESSURE O2 100.6 mmHg (75.0-100.0); ABG STANDARD HCO3 22.8 MMOL/L. (22.0-26.0); ABG pH (ARTERIAL) 7.413 UNITS (7.350-7.450)
[2022-12-02 04:43] LABS: RSV AMPLIFICATION NEGATIVE (NEGATIVE)
[2022-12-02 05:04] LABS: PLATELET COUNT, AUTOMATED 82 10^3/uL (150-450)
[2022-12-02] MEDS ORDERED: LORazepam 2 MG/ML 1ML VIAL IV STA (05:48)
[2022-12-02] MEDS ORDERED: HumuLIN R (REGULAR) INSULIN (NovoLIN R) **100U/ML** PER UNIT IV ONE (05:55)
[2022-12-02] MEDS ORDERED: COMBIVENT RESPIMAT 100-20MCG INHALER 4GM INH ONE (06:00)
[2022-12-02] MEDS ORDERED: dexAMETHasone 20MG/5ML VIAL IV ONE (06:00)
[2022-12-02 06:03] LABS: CK-MB VALUE MASS < 1.0 NG/ML (<3.6)
[2022-12-02 06:05] LABS: CPK CREATINE PHOSPHOKINASE 51 U/L (46-171); MB/CK RELATIVE INDEX 1.96 (< OR =4)
[2022-12-02] MEDS ORDERED: CALC1CAP31 PO (06:26)
[2022-12-02] MEDS ORDERED: HOME MED LIST COMPLETE! XX SCH (06:30)
[2022-12-02] MEDS ORDERED: NITROGLYCERIN 0.4MG SUBL TABLET SL PRN (06:50)
[2022-12-02] MEDS ORDERED: GLUCAGON INJ 1MG VIAL SC PRN (06:50)
[2022-12-02] MEDS ORDERED: ALBUTEROL 90 MCG/ACT 8GM HFA INHALER INH PRN (06:50)
[2022-12-02] MEDS ORDERED: DEXTROSE 50% 50ML SYRINGE IV PRN (06:50)
[2022-12-02] MEDS ORDERED: GLUCOSE 4GM CHEW TABLET PO PRN (06:50)
[2022-12-02] MEDS: SYMBICORT 160/4.5MCG INHALER 6GM INH SCH ×2 (08:12→21:00)
[2022-12-02 08:17] VITALS: O2SAT 98
[2022-12-02 08:18] LABS: INR 1.22
[2022-12-02 08:19] LABS: PARTIAL THROMBOPLASTIN TIME 37.5 SECONDS (24.8-34.2)
[2022-12-02] MEDS: CALCITRIOL 0.25 MCG CAP (S0169) PO SCH (09:00)
[2022-12-02] MEDS ORDERED: APIXABAN 5 MG TAB (ELIQUIS) PO SCH (09:00)
[2022-12-02] MEDS: INSULIN LISPRO (NovoLOG) PER UNIT SC SCH ×4 (09:05→20:47)
[2022-12-02] MEDS: APIXABAN 2.5 MG TAB (ELIQUIS) PO SCH ×2 (09:06→20:47)
[2022-12-02] MEDS: METOPROLOL SUCC *XL* 25MG TAB (TopROL *XL*) PO SCH (09:06)
[2022-12-02] MEDS: LEVEMIR (INSULIN DETEMIR) 1 UNITS/0.01ML SC SCH ×2 (09:06→20:46)
[2022-12-02] MEDS: FINASTERIDE 5MG TAB PO SCH (09:06)
[2022-12-02] MEDS: allopurinoL 300 MG TAB PO SCH (09:07)
[2022-12-02] MEDS: ACETAMINOPHEN TAB 650MG DOSE (2X325MG) PO PRN ×2 (14:32→20:48)
[2022-12-02 15:09] VITALS: BP 141/71; O2SAT 95
[2022-12-02 15:30] VITALS: BP 124/62; TEMP 97.9; O2SAT 96
[2022-12-02 20:30] VITALS: BP 125/62; TEMP 98.8; O2SAT 97
[2022-12-02] MEDS: GABAPENTIN 300 MG CAP PO SCH (20:47)
[2022-12-02] MEDS: ASPIRIN 81MG ENTERIC TABLET PO SCH (20:47)
[2022-12-02] MEDS: TAMSULOSIN 0.4 MG CAP PO SCH (20:48)
[2022-12-03 04:43] VITALS: BP 122/63; TEMP 97.7; O2SAT 95
[2022-12-03 06:22] LABS: BASO % 0.3 % (0.0-1.0); HEMATOCRIT 32.6 % (42.0-52.0); HEMOGLOBIN 11.3 g/dl (13.5-17.5); LYMPH # 0.4 10^3/uL (1.5-5.0); LYMPH % 9.3 % (24.0-44.0); MEAN CORPUSCULAR HEMOGLOBIN 31.7 pg (27.0-33.0); MEAN CORPUSCULAR HGB CONC 34.7 g/dl (32.0-36.5); MEAN CORPUSCULAR VOLUME 91.6 fl (80.0-96.0); MONO # 0.2 10^3/uL (0.0-0.8); NEUTROPHILS # 3.4 10^3/uL (1.5-8.5); NEUTROPHILS % 85.9 % (36.0-66.0); RED BLOOD COUNT 3.56 10^6/uL (4.30-6.10)
[2022-12-03 06:39] LABS: CALCIUM LEVEL 8.4 MG/DL (8.3-10.6); CREATININE FOR GFR 2.17 MG/DL (0.70-1.30); GLOMERULAR FILTRATION RATE 31.2 (>35); POTASSIUM SERUM 4.9 MMOL/L (3.5-5.1)
[2022-12-03 06:41] LABS: PLATELET COUNT, AUTOMATED 78 10^3/uL (150-450)
[2022-12-03] MEDS ORDERED: dexAMETHasone 4 MG TAB PO SCH (09:00)
[2022-12-03] MEDS: FINASTERIDE 5MG TAB PO SCH (09:03)
[2022-12-03] MEDS: CALCITRIOL 0.25 MCG CAP (S0169) PO SCH (09:03)
[2022-12-03] MEDS: APIXABAN 2.5 MG TAB (ELIQUIS) PO SCH ×2 (09:03→20:53)
[2022-12-03] MEDS: METOPROLOL SUCC *XL* 25MG TAB (TopROL *XL*) PO SCH (09:03)
[2022-12-03] MEDS: allopurinoL 300 MG TAB PO SCH (09:04)
[2022-12-03] MEDS: LEVEMIR (INSULIN DETEMIR) 1 UNITS/0.01ML SC SCH ×2 (09:04→20:53)
[2022-12-03] MEDS: INSULIN LISPRO (NovoLOG) PER UNIT SC SCH ×5 (09:05→20:52)
[2022-12-03] MEDS: SYMBICORT 160/4.5MCG INHALER 6GM INH SCH ×2 (11:23→21:00)
[2022-12-03] MEDS ORDERED: INSULIN LISPRO (NovoLOG) PER UNIT SC ONE ×3 (13:00→20:40)
[2022-12-03] MEDS: TORSEMIDE 20 MG TAB PO SCH (13:39)
[2022-12-03] MEDS: POTASSIUM CHLORIDE 10MEQ SR TABLET PO SCH (13:40)
[2022-12-03 14:00] VITALS: BP 121/66; TEMP 97.7; O2SAT 92
[2022-12-03 20:05] VITALS: BP 122/65; TEMP 98.2; O2SAT 92
[2022-12-03] MEDS: ASPIRIN 81MG ENTERIC TABLET PO SCH (20:53)
[2022-12-03] MEDS: GABAPENTIN 300 MG CAP PO SCH (20:53)
[2022-12-03] MEDS: TAMSULOSIN 0.4 MG CAP PO SCH (20:53)
[2022-12-03] MEDS ORDERED: RAMELTEON 8 MG TAB (ROZEREM) PO PRN (21:00)
[2022-12-03 23:30] VITALS: O2SAT 86
[2022-12-03 23:35] VITALS: O2SAT 92
[2022-12-04 02:45] VITALS: O2SAT 97
[2022-12-04 02:49] VITALS: O2SAT 96
[2022-12-04 05:06] VITALS: BP 111/63; TEMP 97.7; O2SAT 94
[2022-12-04 06:07] LABS: HEMATOCRIT 30.4 % (42.0-52.0); HEMOGLOBIN 10.7 g/dl (13.5-17.5); LYMPH # 0.5 10^3/uL (1.5-5.0); MEAN CORPUSCULAR HEMOGLOBIN 31.9 pg (27.0-33.0); MEAN CORPUSCULAR HGB CONC 35.2 g/dl (32.0-36.5); MEAN CORPUSCULAR VOLUME 90.7 fl (80.0-96.0); MONO # 0.3 10^3/uL (0.0-0.8); MONO % 2.9 % (2.0-8.0); NEUTROPHILS # 7.8 10^3/uL (1.5-8.5); NEUTROPHILS % 90.3 % (36.0-66.0); PLATELET COUNT, AUTOMATED 110 10^3/uL (150-450); RED BLOOD COUNT 3.35 10^6/uL (4.30-6.10); WHITE BLOOD COUNT 8.6 10^3/uL (4.0-10.0)
[2022-12-04 06:38] LABS: CALCIUM LEVEL 8.4 MG/DL (8.3-10.6); CREATININE FOR GFR 2.34 MG/DL (0.70-1.30); GLOMERULAR FILTRATION RATE 28.6 (>35); POTASSIUM SERUM 4.8 MMOL/L (3.5-5.1)
[2022-12-04] MEDS: INSULIN LISPRO (NovoLOG) PER UNIT SC SCH ×4 (07:55→12:13)
[2022-12-04 08:01] VITALS: BP 114/65
[2022-12-04] MEDS: TORSEMIDE 20 MG TAB PO SCH (08:01)
[2022-12-04] MEDS: METOPROLOL SUCC *XL* 25MG TAB (TopROL *XL*) PO SCH (08:01)
[2022-12-04] MEDS: allopurinoL 300 MG TAB PO SCH (08:01)
[2022-12-04] MEDS: CALCITRIOL 0.25 MCG CAP (S0169) PO SCH (08:01)
[2022-12-04] MEDS: POTASSIUM CHLORIDE 10MEQ SR TABLET PO SCH (08:01)
[2022-12-04] MEDS: LEVEMIR (INSULIN DETEMIR) 1 UNITS/0.01ML SC SCH (08:01)
[2022-12-04] MEDS: APIXABAN 2.5 MG TAB (ELIQUIS) PO SCH (08:02)
[2022-12-04] MEDS: FINASTERIDE 5MG TAB PO SCH (08:02)
[2022-12-04] MEDS ORDERED: predniSONE 20 MG TAB PO SCH (09:00)
[2022-12-04] MEDS ORDERED: ELIQ2.5T PO (11:11)
[2022-12-04] MEDS ORDERED: RAME8TAB2 PO (11:55)
== END 2022-12-04 12:37 | disposition home or self-care (01) | DRG 189 ==
LOC: M ED 03:37 → M ED INP 06:48 → ENRESERV 13:55 → M MSPAV 15:24
PROVIDERS: ADMIT Internal Medicine; ATTEND Student in an Organized Health Care Education/Training Program
PROC: B246ZZZ Ultrasonography of Right and Left Heart (ICD-10-PCS; principal; 2022-12-03)
DX: J96.21 Acute and chronic respiratory failure with hypoxia (principal); N18.4 Chronic kidney disease, stage 4 (severe); I13.0 Hypertensive heart and chronic kidney disease with heart failure and stage 1 through stage 4 chronic kidney disease, or unspecified chronic kidney disease; I50.32 Chronic diastolic (congestive) heart failure; K50.90 Crohn's disease, unspecified, without complications; I25.2 Old myocardial infarction; I25.10 Atherosclerotic heart disease of native coronary artery without angina pectoris; I48.91 Unspecified atrial fibrillation; G89.29 Other chronic pain; E55.9 Vitamin D deficiency, unspecified; D69.6 Thrombocytopenia, unspecified; N40.0 Benign prostatic hyperplasia without lower urinary tract symptoms; M54.9 Dorsalgia, unspecified; D64.9 Anemia, unspecified; K21.9 Gastro-esophageal reflux disease without esophagitis; M10.9 Gout, unspecified; E11.65 Type 2 diabetes mellitus with hyperglycemia; J44.9 Chronic obstructive pulmonary disease, unspecified; E11.22 Type 2 diabetes mellitus with diabetic chronic kidney disease; R53.83 Other fatigue; T38.0X5A Adverse effect of glucocorticoids and synthetic analogues, initial encounter; Z95.1 Presence of aortocoronary bypass graft; Z98.41 Cataract extraction status, right eye; Z98.42 Cataract extraction status, left eye; Z87.891 Personal history of nicotine dependence; Z79.01 Long term (current) use of anticoagulants; Z79.82 Long term (current) use of aspirin; Z79.4 Long term (current) use of insulin; Z79.899 Other long term (current) drug therapy; Z88.0 Allergy status to penicillin; Z88.6 Allergy status to analgesic agent; Z88.8 Allergy status to other drugs, medicaments and biological substances; Z86.718 Personal history of other venous thrombosis and embolism; Z86.16 Personal history of COVID-19

== ENCOUNTER 2023-07-20 21:52 | Inpatient (IN) | payer MEDICARE, OTHER ==
[~2023-07-20] VITALS: Ht 182.9 cm; Wt 92.0 kg
[~2023-07-20 21:52] MED LIST changes: +CALC1CAP31 PO; +ELIQ2.5T PO; +RAME8TAB2 PO
[2023-07-20] MEDS ORDERED: NS 500 ML IV ONE (22:15)
[2023-07-20 22:57] LABS: VENOUS BASE EXCESS 2.9 (-2.0-2.0); VENOUS HCO3 28.7 MMOL/L (23.0-27.0); VENOUS O2 SATURATION 53.5 % (60.0-80.0); VENOUS PARTIAL PRESSURE CO2 48.8 mmHg (38.0-50.0); VENOUS PARTIAL PRESSURE O2 26.8 mmHg (30.0-50.0); VENOUS PH 7.387 UNITS (7.330-7.430); VENOUS STANDARD HCO3 26.1 MMOL/L; VENOUS TOTAL CO2 30.2 MMOL/L (24.0-28.0)
[2023-07-20 23:07] LABS: BASO # 0.1 10^3/uL (0.0-0.2); BASO % 0.6 % (0.0-1.0); EOS # 0.2 10^3/uL (0.0-0.5); EOS % 2.2 % (0.0-3.0); HEMATOCRIT 32.8 % (42.0-52.0); LYMPH # 0.9 10^3/uL (1.5-5.0); LYMPH % 8.9 % (24.0-44.0); MEAN CORPUSCULAR HEMOGLOBIN 33.2 pg (27.0-33.0); MEAN CORPUSCULAR HGB CONC 33.5 g/dl (32.0-36.5); MEAN CORPUSCULAR VOLUME 99.1 fl (80.0-96.0); MONO # 0.5 10^3/uL (0.0-0.8); NEUTROPHILS # 8.2 10^3/uL (1.5-8.5); NEUTROPHILS % 82.4 % (36.0-66.0); RED BLOOD COUNT 3.31 10^6/uL (4.30-6.10)
[2023-07-20 23:17] LABS: INR 1.33; PROTHROMBIN TIME 16.1 SECONDS (12.5-14.5)
[2023-07-20 23:26] LABS: PLATELET COUNT, AUTOMATED 92 10^3/uL (150-450)
[2023-07-20 23:55] LABS: CK-MB VALUE MASS 2.2 NG/ML (<3.6)
[2023-07-20 23:57] LABS: MB/CK RELATIVE INDEX 0.83 (< OR =4)
[2023-07-20 23:58] LABS: ALBUMIN 2.9 G/DL (3.2-5.2); BILIRUBIN,DIRECT 0.6 MG/DL (<0.4); BILIRUBIN,TOTAL 1.6 MG/DL (0.3-1.2); CALCIUM LEVEL 8.6 MG/DL (8.3-10.6); CREATININE FOR GFR 3.56 MG/DL (0.70-1.30); GLOMERULAR FILTRATION RATE 17.6 (>35); POTASSIUM SERUM 4.1 MMOL/L (3.5-5.1)
[2023-07-21 00:52] LABS: CK-MB VALUE MASS 2.1 NG/ML (<3.6)
[2023-07-21 00:54] LABS: MB/CK RELATIVE INDEX 0.83 (< OR =4)
[2023-07-21] MEDS ORDERED: cefTRIAXone SOD 1 GM in D5W MINI-BAG PLUS 50 ML IV ONE (01:40)
[2023-07-21] MEDS: cefTRIAXone SOD 2 GM in D5W MINI-BAG PLUS 50 ML IV ONE (01:55)
[2023-07-21] MEDS: AZITHROMYCIN 250MG TABLET PO ONE (01:59)
[2023-07-21] MEDS ORDERED: HUMA100I5 INJ (02:08)
[2023-07-21] MEDS ORDERED: ELIQ2.5T PO (02:08)
[2023-07-21] MEDS ORDERED: THERTAB52 PO (02:13)
[2023-07-21] MEDS ORDERED: LEVO25TA5 PO (02:13)
[2023-07-21] MEDS ORDERED: HOME MED LIST COMPLETE! XX SCH (02:15)
[2023-07-21] MEDS ORDERED: DEXTROSE 50% 50ML SYRINGE IV PRN (04:35)
[2023-07-21] MEDS ORDERED: GLUCAGON INJ 1MG VIAL SC PRN (04:35)
[2023-07-21] MEDS ORDERED: ALBUTEROL SULFATE 2.5MG/0.5ML INH NEB SOLN INH PRN (04:35)
[2023-07-21] MEDS ORDERED: GLUCOSE 4GM CHEW TABLET PO PRN (04:35)
[2023-07-21] MEDS ORDERED: NITROGLYCERIN 0.4MG SUBL TABLET SL PRN (04:45)
[2023-07-21 05:40] LABS: PROCALCITONIN 0.45 ng/ml
[2023-07-21] MEDS: LEVOTHYROXINE 25MCG TABLET (0.025MG) PO SCH (05:44)
[2023-07-21 06:04] VITALS: BP 108/61; TEMP 99.7; O2SAT 92
[2023-07-21] MEDS: IPRATROPIUM 0.5MG/ALBUTEROL 2.5MG INH SOL UD 3ML (DUONEB) INH SCH (07:36)
[2023-07-21] MEDS: SYMBICORT 160/4.5MCG INHALER 6GM INH SCH (07:36)
[2023-07-21] MEDS: DOXYCYCLINE HYCLATE 100MG TABLET PO SCH (08:13)
[2023-07-21] MEDS: APIXABAN 2.5 MG TAB (ELIQUIS) PO SCH (08:14)
[2023-07-21] MEDS: DOCUSATE SODIUM 100MG CAPSULE PO SCH (08:14)
[2023-07-21] MEDS: predniSONE 20 MG TAB PO SCH (08:14)
[2023-07-21] MEDS: CALCITRIOL 0.25 MCG CAP (S0169) PO SCH (08:14)
[2023-07-21] MEDS: MAGNESIUM OXIDE 400MG TAB (MAG-OX) PO SCH (08:14)
[2023-07-21] MEDS: TORSEMIDE 20 MG TAB PO SCH (08:15)
[2023-07-21] MEDS: INSULIN LISPRO (NovoLOG) PER UNIT SC SCH ×2 (08:15→20:26)
[2023-07-21] MEDS ORDERED: CALCITRIOL 0.25 MCG CAP (S0169) PO SCH (09:00)
[2023-07-21 09:01] LABS: BASO # 0.1 10^3/uL (0.0-0.2); BASO % 0.5 % (0.0-1.0); EOS # 0.2 10^3/uL (0.0-0.5); EOS % 2.5 % (0.0-3.0); HEMATOCRIT 33.8 % (42.0-52.0); HEMOGLOBIN 11.2 g/dl (13.5-17.5); LYMPH # 1.5 10^3/uL (1.5-5.0); LYMPH % 15.9 % (24.0-44.0); MEAN CORPUSCULAR HGB CONC 33.1 g/dl (32.0-36.5); MEAN CORPUSCULAR VOLUME 99.7 fl (80.0-96.0); MONO # 0.5 10^3/uL (0.0-0.8); MONO % 5.8 % (2.0-8.0); NEUTROPHILS # 6.8 10^3/uL (1.5-8.5); NEUTROPHILS % 74.9 % (36.0-66.0); PLATELET COUNT, AUTOMATED 103 10^3/uL (150-450); RED BLOOD COUNT 3.39 10^6/uL (4.30-6.10); WHITE BLOOD COUNT 9.1 10^3/uL (4.0-10.0)
[2023-07-21 09:19] LABS: CALCIUM LEVEL 8.4 MG/DL (8.3-10.6); CREATININE FOR GFR 3.29 MG/DL (0.70-1.30); GLOMERULAR FILTRATION RATE 19.3 (>35); POTASSIUM SERUM 3.7 MMOL/L (3.5-5.1)
[2023-07-21] MEDS: LEVEMIR (INSULIN DETEMIR) 1 UNITS/0.01ML SC SCH ×2 (12:03→20:26)
[2023-07-21 14:00] VITALS: BP 113/62; TEMP 98; O2SAT 95
[2023-07-21 19:22] VITALS: BP 122/68; TEMP 97.9; O2SAT 94
[2023-07-21] MEDS: TAMSULOSIN 0.4 MG CAP PO SCH (20:25)
[2023-07-21] MEDS: GABAPENTIN 300 MG CAP PO SCH (20:25)
[2023-07-21] MEDS: CETIRIZINE (ZyrTEC) 10 MG TAB PO SCH (20:25)
[2023-07-21] MEDS: FINASTERIDE 5MG TAB PO SCH (20:25)
[2023-07-21] MEDS: allopurinoL 100 MG TAB PO SCH (20:25)
[2023-07-21] MEDS: cefTRIAXone SOD 1 GM in D5W MINI-BAG PLUS 50 ML IV SCH (20:26)
[2023-07-21] MEDS ORDERED: allopurinoL 300 MG TAB PO SCH (21:00)
[2023-07-22 04:23] VITALS: BP 115/61; TEMP 97.7; O2SAT 94
[2023-07-22 07:06] LABS: HEMOGLOBIN 10.4 g/dl (13.5-17.5); MEAN CORPUSCULAR HEMOGLOBIN 32.6 pg (27.0-33.0); MEAN CORPUSCULAR HGB CONC 33.5 g/dl (32.0-36.5); MEAN CORPUSCULAR VOLUME 97.2 fl (80.0-96.0); PLATELET COUNT, AUTOMATED 106 10^3/uL (150-450); RED BLOOD COUNT 3.19 10^6/uL (4.30-6.10); WHITE BLOOD COUNT 8.2 10^3/uL (4.0-10.0)
[2023-07-22 07:40] LABS: PROCALCITONIN 0.35 ng/ml
[2023-07-22 07:41] LABS: ALBUMIN 2.5 G/DL (3.2-5.2); BILIRUBIN,TOTAL 0.7 MG/DL (0.3-1.2); CALCIUM LEVEL 8.6 MG/DL (8.3-10.6); CREATININE FOR GFR 3.11 MG/DL (0.70-1.30); GLOMERULAR FILTRATION RATE 20.6 (>35); MAGNESIUM LEVEL 2.1 MG/DL (1.8-2.4); TOTAL PROTEIN 5.6 G/DL (5.7-8.2)
[2023-07-22 08:11] VITALS: O2SAT 96
[2023-07-22 14:00] VITALS: BP 122/63; TEMP 97.9; O2SAT 92
[2023-07-22 19:30] VITALS: O2SAT 90
[2023-07-22 20:30] VITALS: BP 116/76; TEMP 97.9; O2SAT 89; O2SAT 92
[2023-07-22 20:31] VITALS: TEMP 97
[2023-07-22] MEDS: zolPIDEM TARTRATE 5 MG TAB PO PRN (20:55)
[2023-07-22] MEDS: ACETAMINOPHEN TAB 650MG DOSE (2X325MG) PO PRN (20:56)
[2023-07-23] MEDS: LEVEMIR (INSULIN DETEMIR) 1 UNITS/0.01ML SC ONE (01:05)
[2023-07-23 06:20] LABS: BASO % 0.1 % (0.0-1.0); EOS % 0.3 % (0.0-3.0); HEMATOCRIT 29.7 % (42.0-52.0); LYMPH # 0.8 10^3/uL (1.5-5.0); LYMPH % 10.3 % (24.0-44.0); MEAN CORPUSCULAR HEMOGLOBIN 32.1 pg (27.0-33.0); MEAN CORPUSCULAR HGB CONC 33.7 g/dl (32.0-36.5); MEAN CORPUSCULAR VOLUME 95.2 fl (80.0-96.0); MONO # 0.5 10^3/uL (0.0-0.8); MONO % 6.4 % (2.0-8.0); NEUTROPHILS # 6.2 10^3/uL (1.5-8.5); NEUTROPHILS % 82.1 % (36.0-66.0); PLATELET COUNT, AUTOMATED 117 10^3/uL (150-450); RED BLOOD COUNT 3.12 10^6/uL (4.30-6.10); WHITE BLOOD COUNT 7.6 10^3/uL (4.0-10.0)
[2023-07-23 06:25] VITALS: BP 113/68; TEMP 98.1; O2SAT 94
[2023-07-23 06:26] VITALS: TEMP 97.8
[2023-07-23 06:54] LABS: CALCIUM LEVEL 8.6 MG/DL (8.3-10.6); CREATININE FOR GFR 2.99 MG/DL (0.70-1.30); GLOMERULAR FILTRATION RATE 21.5 (>35); POTASSIUM SERUM 4.2 MMOL/L (3.5-5.1)
[2023-07-23] MEDS ORDERED: TORS20TA2 PO (08:48)
[2023-07-23] MEDS ORDERED: PRED10TA2 PO (08:48)
[2023-07-23] MEDS ORDERED: ALLO10TA PO (08:48)
[2023-07-23] MEDS ORDERED: DOXY100T PO (08:48)
[2023-07-23] MEDS ORDERED: CEFD1CAP9 PO (08:48)
[2023-07-23] MEDS ORDERED: LANTINJ4 SC (10:17)
== END 2023-07-23 13:45 | disposition home health service (06) | DRG 190 ==
LOC: M ED 21:52 → M ED INP 07-21 04:33 → M MSPAV 07-21 05:26
PROVIDERS: ADMIT Family Medicine; ATTEND Internal Medicine
DX: J44.1 Chronic obstructive pulmonary disease with (acute) exacerbation (principal); J18.9 Pneumonia, unspecified organism; I13.0 Hypertensive heart and chronic kidney disease with heart failure and stage 1 through stage 4 chronic kidney disease, or unspecified chronic kidney disease; K50.90 Crohn's disease, unspecified, without complications; N17.9 Acute kidney failure, unspecified; N18.4 Chronic kidney disease, stage 4 (severe); I48.20 Chronic atrial fibrillation, unspecified; J44.0 Chronic obstructive pulmonary disease with (acute) lower respiratory infection; E11.22 Type 2 diabetes mellitus with diabetic chronic kidney disease; I25.10 Atherosclerotic heart disease of native coronary artery without angina pectoris; G47.33 Obstructive sleep apnea (adult) (pediatric); I50.9 Heart failure, unspecified; I25.2 Old myocardial infarction; E78.5 Hyperlipidemia, unspecified; K21.9 Gastro-esophageal reflux disease without esophagitis; N40.1 Benign prostatic hyperplasia with lower urinary tract symptoms; F32.A Depression, unspecified; K76.0 Fatty (change of) liver, not elsewhere classified; D69.6 Thrombocytopenia, unspecified; G47.00 Insomnia, unspecified; E11.42 Type 2 diabetes mellitus with diabetic polyneuropathy; M10.9 Gout, unspecified; E03.9 Hypothyroidism, unspecified; Z95.5 Presence of coronary angioplasty implant and graft; Z98.41 Cataract extraction status, right eye; Z98.42 Cataract extraction status, left eye; Z87.891 Personal history of nicotine dependence; Z79.01 Long term (current) use of anticoagulants; Z79.4 Long term (current) use of insulin; Z79.890 Hormone replacement therapy; Z79.899 Other long term (current) drug therapy; Z88.0 Allergy status to penicillin; Z88.8 Allergy status to other drugs, medicaments and biological substances; Z86.718 Personal history of other venous thrombosis and embolism

== ENCOUNTER → 2023-09-14 | Outpatient (CLI) | payer MEDICARE, OTHER ==
[~2023-09-14] MED LIST changes: +ALLO10TA PO; +CEFD1CAP9 PO; +DOXY100T PO; +HUMA100I5 INJ; +LEVO25TA5 PO; +PRED10TA2 PO; +THERTAB52 PO
== END ==
LOC: M SLEEP 20:00
PROVIDERS: ATTEND Internal Medicine Pulmonary Disease
DX: G47.33 Obstructive sleep apnea (adult) (pediatric) (principal)

== ENCOUNTER → 2024-01-28 | Outpatient (REF) | payer MEDICARE, OTHER ==
[~2024-01-28] MED LIST changes: +GABA-1172 PO; -GABA-282 PO
[2024-01-30 14:27] LABS: FREE KAPPA LIGHT CHAINS SERUM 994.4 mg/L (3.3-19.4); FREE LAMBDA LIGHT CHAINS SERUM 16.6 mg/L (5.7-26.3); KAPPA/LAMBDA RATIO SERUM 59.9 (0.26-1.65)
== END ==
LOC: M LAB REF 17:21
PROVIDERS: ATTEND Internal Medicine Nephrology
DX: R80.9 Proteinuria, unspecified (principal)

== ENCOUNTER → 2024-08-14 | Outpatient (CLI) | payer MEDICARE, OTHER ==
[~2024-08-14] MED LIST changes: -AMBI10TA PO; -FLOM0.4C39 PO; +TAMS-18 PO; +ZOLP-533 PO
[2024-08-14 18:09] LABS: HEMATOCRIT 38.9 % (42.0-52.0); HEMOGLOBIN 12.8 g/dl (13.5-17.5); MEAN CORPUSCULAR HEMOGLOBIN 31.4 pg (27.0-33.0); MEAN CORPUSCULAR HGB CONC 32.9 g/dl (32.0-36.5); MEAN CORPUSCULAR VOLUME 95.6 fl (80.0-96.0); PLATELET COUNT, AUTOMATED 112 10^3/uL (150-450); RED BLOOD COUNT 4.07 10^6/uL (4.30-6.10); WHITE BLOOD COUNT 4.6 10^3/uL (4.0-10.0)
[2024-08-14 18:33] LABS: ALBUMIN 3.7 G/DL (3.2-5.2); BILIRUBIN,TOTAL 0.5 MG/DL (0.3-1.2); CALCIUM LEVEL 8.8 MG/DL (8.3-10.6); CREATININE FOR GFR 3.01 MG/DL (0.70-1.30); GLOMERULAR FILTRATION RATE 19.9 (>35); POTASSIUM SERUM 4.3 MMOL/L (3.5-5.1); TOTAL PROTEIN 6.3 G/DL (5.7-8.2)
== END ==
LOC: M LAB 17:24
PROVIDERS: ATTEND Nurse Practitioner Acute Care
DX: I50.9 Heart failure, unspecified (principal)

== ENCOUNTER → 2024-10-12 | Outpatient (CLI) | payer MEDICARE, OTHER ==
[~2024-10-12] MED LIST changes: -AMIO200T49 PO; +AMIO200T54 PO; +ATOR1TAB21 PO; +D3 S20002 PO; +EZET10TA21 PO; +MIDO5TA PO; +TORS100T PO
== END ==
LOC: M RAD 12:19
PROVIDERS: ATTEND Internal Medicine
DX: J18.9 Pneumonia, unspecified organism (principal)

== ENCOUNTER → 2024-12-16 | Outpatient (REF) | payer MEDICARE, OTHER ==
[~2024-12-16] MED LIST changes: -COLC0.6T47 PO; +COLC0.6T53 PO; -EZET10TA21 PO; +EZET10TA57 PO; -ZOLP5TAB PO; +ZOLP5TAB9 PO
[2024-12-22 04:22] LABS: IgG SERUM (part of Subclasses) 916.0 mg/dL (600-1540)
== END ==
LOC: M LAB REF 18:15
PROVIDERS: ATTEND Internal Medicine
DX: N18.4 Chronic kidney disease, stage 4 (severe) (principal); I25.5 Ischemic cardiomyopathy